=== PATIENT | male | born 1980 | race Caucasian/White ===

== ENCOUNTER 2017-03-05 12:57 | Inpatient (IN) ==
[2017-03-05 13:18] LABS: Basophils # 0.1 K/mcL (0.0-0.2); Basophils % 1.6 %; Eosinophils # 0.2 K/mcL (0.0-0.6); Eosinophils % 2.7 %; Hematocrit 52.2 % (37.5-50.1); Hemoglobin 17.3 g/dL (12.9-16.9); Immature Granulocytes % 0.4 % (0-4); Immature Platelets 4.3 % (1.1-6.1); Lymphocytes # 2.5 K/mcL (0.6-4.6); Lymphocytes % 30.8 %; Mean Corpuscular HGB Conc 33.1 g/dL (31.6-35.5); Mean Corpuscular Hemoglobin 27.4 pg (28.0-33.3); Mean Corpuscular Volume 82.6 fL (83.0-100.0); Mean Platelet Volume 10.5 fL (9.4-12.4); Monocytes # 0.8 K/mcL (0.0-1.3); Monocytes % 9.5 %; Neutrophils # 4.5 K/mcL (1.6-8.9); Platelet Count 274 K/mcL (140-400); Red Blood Count 6.32 M/mcL (4.19-5.50); Red Cell Distribution Width 13.2 % (11.5-14.5)
[2017-03-05 13:28] LABS: Bilirubin,Urine Negative (Negative); Blood,Urine Negative (Negative); Clarity,Urine Clear (Clear); Color,Urine Yellow (Yellow); Glucose,Urine (UA) >=1000 mg/dL (Normal); Ketones,Urine Negative (Negative); Leukocyte Esterase,Urine Negative (Negative); Nitrite,Urine Negative (Negative); PH,Urine 5.5 pH Units (5.0-8.0); Protein,Urine Trace mg/dL (Neg-Trace); Specific Gravity,Urine > 1.030 (1.010-1.025); Urobilinogen,Urine Normal (Normal)
[2017-03-05 13:30] LABS: Bacteria,Urine None Seen per hpf (None-Few); Hyaline Casts,Urine None Seen per lpf (None-Few); RBC,Urine 0-3 per hpf (0-3); Squamous Epithelial Cell,Urine Few per lpf (None-Few); WBC,Urine 0-3 per hpf (0-3)
[2017-03-05 13:34] LABS: Albumin 3.8 g/dL (3.5-5.0); Albumin/Globulin Ratio 0.9 (1.1-2.2); Bilirubin,Direct 0.2 mg/dL (0.0-0.5); Bilirubin,Indirect 0.1 mg/dL (0.0-1.2); Bilirubin,Total 0.3 mg/dL (0.2-1.2); Globulin 4.4 g/dL (2.4-3.5); Total Protein 8.2 g/dL (6.0-8.3)
[2017-03-05 13:34] LABS: Amphetamine Screen,Urine Negative ng/mL (Cutoff=1000); Barbiturate Screen,Urine Negative ng/mL (Cutoff=200); Benzodiazepines Screen,Urine Negative ng/mL (Cutoff=200); Cannabinoid Screen,Urine Negative ng/mL (Cutoff = 50); Cocaine Screen,Urine Negative ng/mL (Cutoff= 300); Opiate Screen,Urine Negative ng/mL (Cutoff=300); Phencyclidine Screen,Urine Negative ng/mL (Cutoff=25)
[2017-03-05 13:48] LABS: BUN/Creatinine Ratio 5 (6-26); Calcium 9.6 mg/dL (8.6-10.8); Carbon Dioxide 20 mEq/L (19-29); Chloride 100 mEq/L (98-109); Osmolality,Calculated 302 (280-300); Potassium 3.6 mEq/L (3.5-4.5); Sodium 135 mEq/L (136-145); eGFR For African Americans > 60 (> 60); eGFR For Non-African Americans > 60 (> 60)
[2017-03-05 13:49] LABS: Blood Urea Nitrogen 5 mg/dL (8-26)
[2017-03-05 13:51] LABS: Acetaminophen < 1.0 mcg/mL (10-30); Ethanol < 10 mg/dL (0-10); Glucose 543 mg/dL (70-99); Salicylate < 5.0 mg/dL (15-30)
[2017-03-05] MEDS ORDERED: Insulin Regular, Human 100 UNIT/ML SQ ONE ×2 (13:55→15:46)
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
[2017-03-05] MEDS ORDERED: Ondansetron ODT 4 MG TAB.RAPDIS SL ONE (14:35)
[2017-03-05] MEDS ORDERED: Acetaminophen 325 MG TABLET PO PRN (16:32)
[2017-03-05] MEDS ORDERED: traZODone 50 MG TABLET PO PRN (16:32)
[2017-03-05] MEDS ORDERED: MOM Conc 10 ML UD.LIQ PO PRN (16:32)
[2017-03-05] MEDS ORDERED: hydrOXYzine pamoate 25 MG CAPSULE PO PRN (16:32)
[2017-03-05] MEDS ORDERED: *HR* LORazepam 1 MG TABLET PO PRN (16:32)
[2017-03-05] MEDS ORDERED: *HR* LORazepam 2 MG/ML VIAL IM PRN (16:32)
[2017-03-05] MEDS ORDERED: Mag Hydrox/Al Hydrox/Simeth 30 ML UDC PO PRN (16:32)
[2017-03-05] MEDS ORDERED: Haloperidol Lactate 5 MG/ML VIAL IM PRN (16:32)
[2017-03-05] MEDS ORDERED: Ibuprofen 800 MG TABLET PO PRN (17:55)
[2017-03-05] MEDS ORDERED: Dextrose Gel 15 GM PO PRN ×2 (17:59)
[2017-03-05] MEDS ORDERED: Insulin LISPRO 300 UNITS/3 ML VIAL SQ ONE (18:25)
[2017-03-05] MEDS: Insulin LISPRO 300 UNITS/3 ML VIAL SQ SCH ×2 (18:31→21:21)
[2017-03-05] MEDS: Doxycycline 100 MG CAPSULE PO SCH (21:23)
[2017-03-05] MEDS: Melatonin 3 MG TABLET PO SCH (21:23)
[2017-03-06] MEDS: Insulin LISPRO 300 UNITS/3 ML VIAL SQ SCH ×4 (08:33→21:33)
[2017-03-06] MEDS: Doxycycline 100 MG CAPSULE PO SCH ×2 (08:43→21:33)
--- NOTE | 2017-03-06 09:56 | Psychiatry History & Physical ---
Date of Encounter: 03/06/17 Time of Encounter: 09:50 History of Present Illness Patient Stated Chief Complaint: "I am depressed and suicidal" Medicare Admission Attestation: For traditional Medicare patients the provided hospital inpatient services are reasonable and necessary and in the case of services not specified as inpatient -only under 42 CFR 419.22 (n), that they are appropriately provided as inpatient services in accordance 42 CFR 412.3. For Critical Access Hospital the patient may reasonably be expected to be discharged or transferred to a hospital within 96 hours after admission to the Critical Access Hospital. Admitted From: Emergency Dept Plans for Post Hospital Care: Home History of Present Illness: Mr. Villeda is a 36 year old male who was referred for hospitalization from emergency department where he presented with depression and suicidal ideation with plan to slit his wrist and ended life. Patient reported that he has been struggling from depression ever since he was a teenager and been in and out of various hospitals in the past. He reported that he is not receiving any outpatient treatment and has been off his antidepressants for the last few months because his primary care physician refused to continue providing psychiatric care. Patient reported that since last 2 months he has been noticing a relapse of depressive symptoms with low mood and anhedonia hopeless helpless feelings crying and weeping spells becoming more withdrawn and isolated poor appetite and recurrent suicidal thoughts with ideation on slitting his wrists. Patient reported that his symptoms are getting worse to the point where he is unable to keep himself safe and fear that he might act on these urges and impulses to end his life. Patient's ongoing stressors included frequent arguments and issues with girlfriend whom he is been with for last 5-1/ 2 years off and on.They are expecting their first child and she is 3 months . Since patient was actively suicidal and able to contract for safety and was posing a threat to himself it was decided to hospitalize him at [address] [place] [address] facility for safety concerns. Past Med Surg Social Fam HX - Past Medical History Medical history: arthritis, asthma, COPD, diabetes, GERD, hyperlipidemia, hypertension - Past Psychiatric History Psychiatric history: Reports: depression, prior suicide attempt, previous psychiatric hospitalization Past psychiatric history details: Patient reported that he is been hospitalized on numerous occasions on various psychiatric hospitals in the community. His last hospitalization was approximately 6 months ago at [facility]. Patient reported that he has been off all his medications for the last 2 months. He was unable to recall the names of all the medications he is been tried on. Family psychiatric history: Unknown Family History of Suicide: Unknown - Past Surgical History Surgical History: non-contributory - Social History Smoking Status: Former smoker Smokeless Tobacco Status: No Alcohol use: none Drug use: none Occupational status: disabled Current living situation: Home, With Family Activity Level: Independent ambulation Recent Out of Country Travel Within the Last 8 Weeks: No Exposure or Possible Exposure to Illness During Travel: No Additional social history: Patient was born in [place]. He is the only child between his mother and father. His father is . He graduated high school but he was in special ed classes for slow learning. He reported that his reading and math capabilities are of third-grader. He is single and never been . He has a daughter from a previous relationship but he reported that daughter's mother killed her and disappeared. He is expecting a child with this girlfriend whom he is been with for the last 5-1/2 years off and on. He is currently residing with his grandmother. He is disabled. He denies any legal issues. Medications & Allergies Doxycycline Hyclate [Doxycycline Hyclate] 100 mg PO BID 03/05/17 [History] Ibuprofen [Ibuprofen] 800 mg PO Q6H PRN 03/05/17 [History] Melatonin [Melatin] 6 mg PO HS 03/05/17 [History] 3 Allergy/AdvReac Type Severity Reaction Status Date / Time potassium Allergy Anaphylaxis Verified 03/05/17 13:21 Penicillins AdvReac Hives Verified 03/05/17 13:21 fish Allergy Severe Anaphylaxis Uncoded 03/05/17 13:21 sodium bicarb Allergy Severe Anaphylaxis Uncoded 03/05/17 13:21 sodium chloride Allergy Severe Anaphylaxis Uncoded 03/05/17 13:21 sodium sulfide Allergy Severe Anaphylaxis Uncoded 03/05/17 13:21 pcn Allergy Mild Hives Uncoded 03/05/17 13:21 peanuts Allergy Unknown Anaphylaxis Uncoded 03/05/17 13:21 Ipratropium [place] Allergy Anaphylaxis Uncoded 03/05/17 13:21 Review of Systems Psychiatric: Reports: depression, abnormal sleep pattern, suicidal ideation, anhedonia, difficulty concentrating, hopelessness, mood swings Mental Status Exam Patient orientation: Yes Person, Yes Time, Yes Place Level of alertness: Alert Patient appearance: Unkempt, Disheveled Behavior: anxious Psychomotor activity: Slowed Eye contact: Maintains Eye Contact Mood description: Depressed, Anxious Affect description: constricted, dysphoric Speech pattern: Normal rate, Normal rhythm, Normal tone Speech volume: Soft/Quiet Thought process: [place], Slowed Thinking Thought content: Yes Suicidal ideation Perceptual disturbances: No Auditory hallucinations, No Visual hallucinations Attention span: Capable of Focused Attention Memory description: Grossly Intact Patient reliability: Reliable Historian Intelligence estimate: Below Average Judgment: Limited Insight: Minimal Exam - HEENT Head exam IM: Present: atraumatic Eye exam IM: Present: normal appearance ENT exam IM: Present: normal exam - Neurological Neurological exam IM: Present: CN II-XII intact, normal gait, oriented X3, reflexes normal, no focal deficits, strengths equal and symetr throughout. Absent: motor sensory deficit - Respiratory Respiratory exam IM: Absent: decreased breath sounds, respiratory distress, rhonchi, stridor - GI/Abdominal GI/Abdominal exam IM: Present: soft. Absent: mass, tenderness - Extremities Extremities exam IM: Present: full ROM, normal inspection - Skin Skin exam IM: Present: normal color Results - Vital Signs Vital signs: Temp Pulse Resp BP Pulse Ox 98.4 F 88 18 131/98 96 03/06/17 08:38 03/06/17 08:38 03/06/17 08:38 03/06/17 08:38 03/05/17 13:26 - Labs Labs: Laboratory Last Values WBC 8.1 K/mcL (4.3-11.1) 03/05/17 13:10 RBC 6.32 M/mcL (4.19-5.50) H 03/05/17 13:10 Hgb 17.3 g/dL (12.9-16.9) H 03/05/17 13:10 Hct 52.2 % (37.5-50.1) H 03/05/17 13:10 MCV 82.6 fL (83.0-100.0) L 03/05/17 13:10 MCH 27.4 pg (28.0-33.3) L 03/05/17 13:10 MCHC 33.1 g/dL (31.6-35.5) 03/05/17 13:10 RDW 13.2 % (11.5-14.5) 03/05/17 13:10 Plt Count 274 K/mcL (140-400) 03/05/17 13:10 MPV 10.5 fL (9.4-12.4) 03/05/17 13:10 Immature Gran % 0.4 % (0-4) 03/05/17 13:10 Seg Neutrophils % 55.0 % 03/05/17 13:10 Lymphocytes % 30.8 % 03/05/17 13:10 Monocytes % 9.5 % 03/05/17 13:10 Eosinophils % 2.7 % 03/05/17 13:10 Basophils % 1.6 % 03/05/17 13:10 Neutrophils # 4.5 K/mcL (1.6-8.9) 03/05/17 13:10 Lymphocytes # 2.5 K/mcL (0.6-4.6) 03/05/17 13:10 Monocytes # 0.8 K/mcL (0.0-1.3) 03/05/17 13:10 Eosinophils # 0.2 K/mcL (0.0-0.6) 03/05/17 13:10 Basophils # 0.1 K/mcL (0.0-0.2) 03/05/17 13:10 Immature Plt Fraction 4.3 % (1.1-6.1) 03/05/17 13:10 Sodium 135 mEq/L (136-145) L 03/05/17 13:10 Potassium 3.6 mEq/L (3.5-4.5) 03/05/17 13:10 Chloride 100 mEq/L (98-109) 03/05/17 13:10 Carbon Dioxide 20 mEq/L (19-29) 03/05/17 13:10 BUN 5 mg/dL (8-26) L 03/05/17 13:10 Creatinine 1.02 mg/dL (0.72-1.25) 03/05/17 13:10 Est GFR ( Amer) > 60 (> 60) 03/05/17 13:10 Est GFR (Non-Af Amer) > 60 (> 60) 03/05/17 13:10 BUN/Creatinine Ratio 5 (6-26) L 03/05/17 13:10 Glucose 543 mg/dL (70-99) H* 03/05/17 13:10 POC Glucose 304 (58-89) H 03/06/17 08:29 Calculated Osmolality 302 (280-300) H 03/05/17 13:10 Calcium 9.6 mg/dL (8.6-10.8) 03/05/17 13:10 Total Bilirubin 0.3 mg/dL (0.2-1.2) 03/05/17 13:10 Direct Bilirubin 0.2 mg/dL (0.0-0.5) 03/05/17 13:10 Indirect Bilirubin 0.1 mg/dL (0.0-1.2) 03/05/17 13:10 AST 29 Units/L (5-34) 03/05/17 13:10 ALT 40 Units/L (0-55) 03/05/17 13:10 Alkaline Phosphatase 97 Units/L (38-126) 03/05/17 13:10 Serum Total Protein 8.2 g/dL (6.0-8.3) 03/05/17 13:10 Albumin 3.8 g/dL (3.5-5.0) 03/05/17 13:10 Globulin 4.4 g/dL (2.4-3.5) H 03/05/17 13:10 Albumin/Globulin Ratio 0.9 (1.1-2.2) L 03/05/17 13:10 Lipase 66 Units/L (8-78) 03/05/17 13:10 Urine Color Yellow (Yellow) 03/05/17 13:15 Urine Clarity Clear (Clear) 03/05/17 13:15 Urine pH 5.5 pH Units (5.0-8.0) 03/05/17 13:15 Ur Specific [place] > 1.030 (1.010-1.025) H 03/05/17 13:15 Urine Protein Trace mg/dL (Neg-Trace) 03/05/17 13:15 Urine Glucose (UA) >=1000 mg/dL (Normal) H 03/05/17 13:15 Urine Ketones Negative mg/dL (Negative) 03/05/17 13:15 Urine Blood Negative (Negative) 03/05/17 13:15 Urine Nitrite Negative (Negative) 03/05/17 13:15 Urine Bilirubin Negative (Negative) 03/05/17 13:15 Urine Urobilinogen Normal mg/dL (Normal) 03/05/17 13:15 Ur Leukocyte Esterase Negative (Negative) 03/05/17 13:15 Urine Microscopic RBC 0-3 per hpf (0-3) 03/05/17 13:15 Urine Microscopic WBC 0-3 per hpf (0-3) 03/05/17 13:15 Ur Squamous Epith Cells Few per lpf (None-Few) 03/05/17 13:15 Urine Bacteria None Seen per hpf (None-Few) 03/05/17 13:15 Hyaline Casts None Seen per lpf (None-Few) 03/05/17 13:15 Salicylates < 5.0 mg/dL (15-30) L 03/05/17 13:10 Urine Opiates Screen Negative ng/mL (Ayuits=212) 03/05/17 13:15 Acetaminophen < 1.0 mcg/mL (10-30) L 03/05/17 13:10 Ur Barbiturates Screen Negative ng/mL (Oryyuy=089) 03/05/17 13:15 Ur Phencyclidine Scrn Negative ng/mL (Cutoff=25) 03/05/17 13:15 Ur Amphetamines Screen Negative ng/mL (Rrxpsl=1910) 03/05/17 13:15 U Benzodiazepines Scrn Negative ng/mL (Fevoxi=990) 03/05/17 13:15 Urine Cocaine Screen Negative ng/mL (Cutoff= 300) 03/05/17 13:15 U Marijuana (THC) Screen Negative ng/mL (Cutoff = 50) 03/05/17 13:15 Ethyl Alcohol < 10 mg/dL (0-10) 03/05/17 13:10 Assessment and Plan (1) MDD (major depressive disorder), recurrent severe, without psychosis Current visit: Yes Status: Acute Plan: Admit inpatient for safety and stabilization, Close observation, Suicide Precautions per unit protocol, Encourage participation in unit milieu, Group Therapy, Monitor sleep, Monitor appetite Additional Plan: We will start the patient on Cymbalta 60 mg daily for his depression and chronic pain Risks, benefits, side effects, alternatives discussed w/pt: Yes Patient agreeable to treatment: Yes Plans for Post Hospital Care: Home Estimated Length of Stay (Days): 4 (2) Intellectual disability Current visit: Yes Status: Acute Plan: Admit inpatient for safety and stabilization, Close observation, Suicide Precautions per unit protocol, Encourage participation in unit milieu, Group Therapy, Monitor sleep, Monitor appetite Risks, benefits, side effects, alternatives discussed w/pt: Yes Patient agreeable to treatment: Yes Plans for Post Hospital Care: Home Estimated Length of Stay (Days): 4
--- NOTE | 2017-03-06 12:14 | Internal Medicine Consult Note ---
<Jeet Oh - Last Filed: 03/06/17 14:47> Date of Encounter: 03/06/17 Time of Encounter: 11:00 - Assessment and Plan (1) Hyperglycemia Current Visit: No Status: Acute Assessment and plan: Patient has hx of chronic diabetes and acute hyperglycemia based on current non- compliance with diet and medications. Patient states he is supposed to take metformin daily and use daily insulin for BG control but he does not. He states that he drank a case of Mountain Dew due to being upset. BG on admission was 543. Will continue patient's insulin and add medium-dose correction sliding scale insulin with hypoglycemic protocol. BG checks ACHS. A1c ordered in routine labs. Diabetes Education consult ordered to educate patient regarding diet, medication compliance, and skin/wound care. ADA diet ordered. (2) Abscess Current Visit: No Status: Acute Assessment and plan: Patient presents with abscess of right upper arm that he states was noticed approimately 1 week ago and was opened and drained at Urgent Care. Patient states a green core came out of the wound. Patient was placed on PO doxycycline. Area of arm is open and draining serosanguineous fluid. Wound culture ordered. Wound care consult and daily wound care ordered. Blood culture ordered. Will adjust PO abx based on culture results. (3) GERD (gastroesophageal reflux disease) Current Visit: No Status: Chronic Assessment and plan: Hx of chronic GERD. PO Prilosec 20 mg BID ordered. Qualifiers: Esophagitis presence: esophagitis presence not specified Qualified Code(s) : K21.9 - Gastro-esophageal reflux disease without esophagitis (4) HTN (hypertension) Current Visit: No Status: Chronic Assessment and plan: Reported hx of chronic HTN. Patient does not currently take anti-hypertensive medication. Monitor patient and VS and will add lisinopril if patient becomes hypertensive. Qualifiers: Hypertension type: essential hypertension Qualified Code(s): I10 - Essential (primary) hypertension (5) HLD (hyperlipidemia) Current Visit: No Status: Chronic Assessment and plan: Hx of chronic HLD. Patient does not currently take any statin. Lipid panel ordered in routine labs to assess cholesterol status. Will add Lipitor if warranted. Qualifiers: Hyperlipidemia type: pure hypercholesterolemia Qualified Code(s): E78.00 - Pure hypercholesterolemia, unspecified; E78.0 - Pure hypercholesterolemia (6) Sleep apnea Current Visit: Yes Status: Chronic Assessment and plan: Hx of chronic sleep apnea. Patient states that he uses CPAP nightly. CPAP ordered. Qualifiers: Sleep apnea type: unspecified type Qualified Code(s): G47.30 - Sleep apnea , unspecified Internal Medicine - CN: HPI - Data of Consult Patient: new to practice Consult date: 03/06/17 Requesting Physician: Alea Palumbo MD - Consult Narrative Reason for consult: Medical managment of DM and Wound to right arm History of present illness: Mr. Villeda is a 36 year old male with medical history of arthritis, asthma, COPD, diabetes controlled with oral anti-hyperglycemic medications and insulin, GERD, HLD, and HTN presents from for medical management of diabetes and wound care for his right arm. Patient states that he drank a case of Mountain Dew because he was upset which caused his BG to elevate to 543 on admission. Patient states that he lost 70 pounds (284 lbs to 214 lbs) over the past year with dietary changes and exercise. Patient states that he noticed an area on his arm approximately a week ago which appeared to be an abscess which his PCP drained. Area is still erythematous and edematous. Mr. Villeda denies recent illness, fever, chills, nausea, vomiting, headache, changes in vision, abdominal pain, unusual bleeding, numbness and tingling, neurological deficits, weakness, unusual bleeding, dizziness, pre-syncope, or syncope. Past Med Surg Social Fam HX - Past Medical History Source: patient, old records reviewed Medical history: arthritis, asthma, COPD, diabetes, GERD, hyperlipidemia, hypertension Psychiatric history: depression, prior suicide attempt, previous psychiatric hospitalization - Past Surgical History Surgical History: non-contributory - Social History Smoking Status: Former smoker Packs per day: 1 PPD - Reports quitting 3 months ago Smokeless Tobacco Status: No Alcohol use: none Drug use: none Current living situation: Home Activity Level: Independent ambulation Recent Out of Country Travel Within the Last 8 Weeks: No Exposure or Possible Exposure to Illness During Travel: No - Family History Father Race: Family Member Ethnicity: Non- Living Status: Age at : 62 Cause of : ME Hx Family Cardiac Disorders: Yes (Stroke, [place], HLD, HTN) Mother Race: Family Member Ethnicity: Non- Living Status: Still Living Hx Family Cardiac Disorders: Yes (TIA, HLD, HTN) Hx Family Endocrine Disorder: Yes (DM) Brother Race: Family Member Ethnicity: Non- Living Status: Still Living Hx Family Cardiac Disorders: Yes (HLD, HTN) Hx Family Musculoskeletal Disorders: Yes (Muscular dystrophy) Sister Race: Family Member Ethnicity: Non- Living Status: Still Living Hx Family Cardiac Disorders: Yes (HLD, HTN) Hx Family Endocrine Disorder: Yes (DM) Hx Family Psychosocial Disorders: Yes (Psychiatric issues) - Constitutional Constitutional: as per HPI, weight loss (70 pounds over the past year) - EENT Eyes: as per HPI - Breasts Breasts: as per HPI - Cardiovascular Cardiovascular ROS IM: as per HPI - Respiratory Respiratory: as per HPI - Gastrointestinal Gastrointestinal: as per HPI - Genitourinary Genitourinary ROS male: as per HPI - Musculoskeletal Musculoskeletal ROS IM: as per HPI - Integumentary Integumentary IM: as per HPI - Neurological Neurological ROS: as per HPI - Psychiatric Psychiatric: anxiety, depression, suicidal ideation - Endocrine Endocrine IM: as per HPI - Hematologic/Lymphatic Hematologic/Lymphatic: as per HPI - Allergic/Immunologic Allergic/Immunologic: as per HPI Internal Medicine - CN: Meds Doxycycline Hyclate [Doxycycline Hyclate] 100 mg PO BID 03/05/17 [History] Ibuprofen [Ibuprofen] 800 mg PO Q6H PRN 03/05/17 [History] Melatonin [Melatin] 6 mg PO HS 03/05/17 [History] 3 Allergy/AdvReac Type Severity Reaction Status Date / Time potassium Allergy Anaphylaxis Verified 03/05/17 13:21 Penicillins AdvReac Hives Verified 03/05/17 13:21 fish Allergy Severe Anaphylaxis Uncoded 03/05/17 13:21 sodium bicarb Allergy Severe Anaphylaxis Uncoded 03/05/17 13:21 sodium chloride Allergy Severe Anaphylaxis Uncoded 03/05/17 13:21 sodium sulfide Allergy Severe Anaphylaxis Uncoded 03/05/17 13:21 pcn Allergy Mild Hives Uncoded 03/05/17 13:21 peanuts Allergy Unknown Anaphylaxis Uncoded 03/05/17 13:21 Ipratropium [place] Allergy Anaphylaxis Uncoded 03/05/17 13:21 Internal Medicine - CN: Exam - Constitutional Vitals: Temp Pulse Resp BP Pulse Ox 98.4 F 88 18 131/98 96 03/06/17 08:38 03/06/17 08:38 03/06/17 08:38 03/06/17 08:38 03/05/17 13:26 General appearance IM: Present: cooperative, A&O X 3, pleasant, no acute distress, obese, answers questions appropriately - Head Head exam: Present: atraumatic, normal inspection, normocephalic - Eye Eye exam: Present: PERRL, conjuntiva pink Pupils: Present: normal accommodation, PERRL - ENT ENT exam: Present: normal exam, normal external ear exam, normal oropharynx - Neck Neck exam general surgery: Present: normal inspection, supple, trachea midline - Respiratory Respiratory exam: Present: CTAB - Cardiovascular Cardiovascular exam IM: Present: RRR, +S1, +S2 - GI/Abdominal GI/Abdominal exam IM: Present: normal bowel sounds, soft, no peritoneal signs - Rectal Rectal exam: Present: deferred - Additional comments: exam deferred. - Extremities Exam Extremities exam IM: Present: warm, radial pulses palpable and symmetrical - Back Exam Back exam: Present: normal inspection - Psychiatric Psychiatric exam: Present: normal affect, normal mood - Skin Skin exam IM: Present: erythema (Right upper arm) - Expanded Skin Exam Type of lesion: Present: abscess (Right upper arm has abscess that was opened and drained by PCP. Area is erythematous and edematous with serosanguineous drainage.) Internal Medicine - CN: Reslt - Labs CBC & Chem 7: 03/06/17 12:15 03/06/17 12:15 Consult Discharge Plan - Plan Referrals: NONE,PCP [Primary Care Provider] - <Freddie Kent - Last Filed: 03/06/17 15:32> Date of Encounter: 03/06/17 Internal Medicine - CN: HPI - Data of Consult Requesting Physician: Alea Palumbo MD - Consult Narrative History of present illness: Mr. Villeda is a 36 year old male Internal Medicine - CN: Exam - Constitutional Vitals: Temp Pulse Resp BP Pulse Ox 98.4 F 88 18 131/98 96 03/06/17 08:38 03/06/17 08:38 03/06/17 08:38 03/06/17 08:38 03/05/17 13:26 Internal Medicine - CN: Reslt - Labs CBC & Chem 7: 03/06/17 12:15 03/06/17 12:15 Labs: Short CBC 03/06/17 Range/Units 12:15 WBC 9.8 (4.3-11.1) K/mcL Hgb 17.3 H (12.9-16.9) g/dL Hct 51.2 H (37.5-50.1) % Plt Count 267 (140-400) K/mcL Neutrophils # 5.4 (1.6-8.9) K/mcL BMP 03/06/17 12:15 Sodium 136 Potassium 3.9 Chloride 101 Carbon Dioxide 26 BUN 13 Creatinine 0.88 Glucose 344 H Calcium 10.0 Liver Function 03/06/17 Range/Units 12:15 Total Bilirubin 0.5 (0.2-1.2) mg/dL AST 34 (5-34) Units/L ALT 41 (0-55) Units/L Alkaline Phosphatase 92 (38-126) Units/L Albumin 3.8 (3.5-5.0) g/dL - Attending Attestation I independently obtained history and examined this patient and my medical decision-making was reviewed with the nurse practitioner, Jeet Oh. I agree with the documented findings, disposition and treatment plan as described. My findings are summarized below: Patient is in no acute distress awake alert oriented. Heart is regular S1-S2, no murmurs. Lungs are clear. Skin exam: Open wound of the right shoulder with minimal serosanguineous drainage. Plan: As above. Additionally I will start Levemir 15 units twice a day. Hemoglobin A1c is 11.5. We will follow-up cultures he may need a repeat soft tissue ultrasound to see if any residual fluid collection remains.
[2017-03-06 12:31] LABS: Hematocrit 51.2 % (37.5-50.1); Hemoglobin 17.3 g/dL (12.9-16.9); Immature Granulocytes % 0.4 % (0-4); Lymphocytes % 32.6 %; Mean Corpuscular HGB Conc 33.8 g/dL (31.6-35.5); Mean Corpuscular Hemoglobin 27.8 pg (28.0-33.3); Mean Corpuscular Volume 82.2 fL (83.0-100.0); Mean Platelet Volume 10.4 fL (9.4-12.4); Monocytes % 7.6 %; Platelet Count 267 K/mcL (140-400); Red Blood Count 6.23 M/mcL (4.19-5.50); Red Cell Distribution Width 13.2 % (11.5-14.5)
[2017-03-06 12:32] LABS: Basophils # 0.1 K/mcL (0.0-0.2); Basophils % 1.4 %; Eosinophils # 0.3 K/mcL (0.0-0.6); Lymphocytes # 3.2 K/mcL (0.6-4.6); Monocytes # 0.8 K/mcL (0.0-1.3); Neutrophils # 5.4 K/mcL (1.6-8.9)
[2017-03-06 12:38] LABS: Hemoglobin A1C 11.9 %
[2017-03-06 12:41] LABS: Alanine Aminotransferase 41 Units/L (0-55); Albumin 3.8 g/dL (3.5-5.0); Albumin/Globulin Ratio 0.8 (1.1-2.2); Alkaline Phosphatase 92 Units/L (38-126); Aspartate Amino Transferase 34 Units/L (5-34); BUN/Creatinine Ratio 15 (6-26); Bilirubin,Total 0.5 mg/dL (0.2-1.2); Blood Urea Nitrogen 13 mg/dL (8-26); Carbon Dioxide 26 mEq/L (19-29); Chloride 101 mEq/L (98-109); Globulin 4.6 g/dL (2.4-3.5); Glucose 344 mg/dL (70-99); Osmolality,Calculated 296 (280-300); Potassium 3.9 mEq/L (3.5-4.5); Sodium 136 mEq/L (136-145); Total Protein 8.4 g/dL (6.0-8.3); eGFR For African Americans > 60 (> 60); eGFR For Non-African Americans > 60 (> 60)
[2017-03-06 13:01] LABS: Chol/HDL Ratio 4.8 (0-4.9); Cholesterol 202 mg/dL (< 200); HDL Cholesterol 42 mg/dL (40-59); LDL Cholesterol,Calculated 96 mg/dL (0-99); Triglycerides 319 mg/dL (< 150)
[2017-03-06] MEDS ORDERED: Insulin DETEMIR 100 UNIT/ML X5UNITS SQ SCH (21:00)
[2017-03-06] MEDS: Melatonin 3 MG TABLET PO SCH (21:33)
[2017-03-07] MEDS ORDERED: Insulin LISPRO 300 UNITS/3 ML VIAL SQ SCH (07:34)
[2017-03-07] MEDS: Doxycycline 100 MG CAPSULE PO SCH ×2 (08:46→20:02)
[2017-03-07] MEDS: Insulin LISPRO 300 UNITS/3 ML VIAL SQ SCH ×6 (08:46→17:02)
[2017-03-07] MEDS: Insulin DETEMIR 100 UNIT/ML X5UNITS SQ SCH ×2 (09:42→20:05)
--- NOTE | 2017-03-07 11:01 | Psychiatry Progress Note ---
Date of Encounter: 03/07/17 Time of Encounter: 09:47 Subjective Interval history: Patient seen and interviewed. Patient found out that his childhood friend hung himself last night and . Patient is very sad and devastated with this news. He appears flat and dysphoric. He is denying suicidal or homicidal ideations however he is still endorsing hopeless and helpless feelings. No safety plan. He has been tolerating medications fairly well. I encouraged the patient to attend groups process grief and start working on a safety plan. Patient was also seen by the hospitalist for his uncontrolled diabetes and other medical problems. (please review the attached hospitalist recommendations ) Review of Systems Psychiatric: Reports: depression, anhedonia, difficulty concentrating, hopelessness Objective: Exam Patient orientation: Yes Person, Yes Time, Yes Place Level of alertness: Alert Patient appearance: Appropriate, Unkempt Behavior: tearful Psychomotor activity: Slowed Eye contact: Maintains Eye Contact Mood description: Depressed Affect description: blunted, dysphoric Speech pattern: Normal rate, Normal rhythm, Normal tone Speech volume: Normal Thought process: Linear, Goal Oriented Thought content: No Suicidal ideation, No Homicidal ideation, No Overt delusions Perceptual disturbances: No Auditory hallucinations, No Visual hallucinations Judgment: Fair Insight: Partial Results - Vital Signs Vital Signs: Temp Pulse Resp BP Pulse Ox 98.0 F 93 18 147/98 96 03/06/17 21:00 03/06/17 21:00 03/06/17 21:00 03/06/17 21:00 03/05/17 13:26 - Labs Labs: Laboratory Results - last 24 hr 03/06/17 03/06/17 03/06/17 11:05 12:15 12:15 WBC 9.8 RBC 6.23 H Hgb 17.3 H Hct 51.2 H MCV 82.2 L MCH 27.8 L MCHC 33.8 RDW 13.2 Plt Count 267 MPV 10.4 Immature Gran % 0.4 Seg Neutrophils % 55.0 Lymphocytes % 32.6 Monocytes % 7.6 Eosinophils % 3.0 Basophils % 1.4 Neutrophils # 5.4 Lymphocytes # 3.2 Monocytes # 0.8 Eosinophils # 0.3 Basophils # 0.1 Sodium 136 Potassium 3.9 Chloride 101 Carbon Dioxide 26 BUN 13 Creatinine 0.88 Est GFR ( Amer) > 60 Est GFR (Non-Af Amer) > 60 BUN/Creatinine Ratio 15 Glucose 344 H POC Glucose 329 H Est Mean Plasma Glucose Hemoglobin A1c Calculated Osmolality 296 Calcium 10.0 Total Bilirubin 0.5 AST 34 ALT 41 Alkaline Phosphatase 92 Serum Total Protein 8.4 H Albumin 3.8 Globulin 4.6 H Albumin/Globulin Ratio 0.8 L Triglycerides 319 H Cholesterol 202 H LDL Cholesterol, Calc 96 VLDL Cholesterol, Calc 64 H HDL Cholesterol 42 Cholesterol/HDL Ratio 4.8 03/06/17 03/06/17 03/06/17 12:15 16:15 20:45 WBC RBC Hgb Hct MCV MCH MCHC RDW Plt Count MPV Immature Gran % Seg Neutrophils % Lymphocytes % Monocytes % Eosinophils % Basophils % Neutrophils # Lymphocytes # Monocytes # Eosinophils # Basophils # Sodium Potassium Chloride Carbon Dioxide BUN Creatinine Est GFR ( Amer) Est GFR (Non-Af Amer) BUN/Creatinine Ratio Glucose POC Glucose 363 H 246 H Est Mean Plasma Glucose 295 Hemoglobin A1c 11.9 H Calculated Osmolality Calcium Total Bilirubin AST ALT Alkaline Phosphatase Serum Total Protein Albumin Globulin Albumin/Globulin Ratio Triglycerides Cholesterol LDL Cholesterol, Calc VLDL Cholesterol, Calc HDL Cholesterol Cholesterol/HDL Ratio 03/06/17 03/07/17 21:32 08:30 WBC RBC Hgb Hct MCV MCH MCHC RDW Plt Count MPV Immature Gran % Seg Neutrophils % Lymphocytes % Monocytes % Eosinophils % Basophils % Neutrophils # Lymphocytes # Monocytes # Eosinophils # Basophils # Sodium Potassium Chloride Carbon Dioxide BUN Creatinine Est GFR ( Amer) Est GFR (Non-Af Amer) BUN/Creatinine Ratio Glucose POC Glucose 289 H 255 H Est Mean Plasma Glucose Hemoglobin A1c Calculated Osmolality Calcium Total Bilirubin AST ALT Alkaline Phosphatase Serum Total Protein Albumin Globulin Albumin/Globulin Ratio Triglycerides Cholesterol LDL Cholesterol, Calc VLDL Cholesterol, Calc HDL Cholesterol Cholesterol/HDL Ratio Assessment and Plan (1) MDD (major depressive disorder), recurrent severe, without psychosis Current visit: No Status: Acute Plan: Continue hospitalization, Close observation, Suicide Precautions per unit protocol, Encourage participation in unit milieu, Group Therapy, Monitor sleep, Monitor appetite Risks, benefits, side effects, alternatives discussed w/pt: Yes Patient agreeable to treatment: Yes (2) Intellectual disability Current visit: No Status: Acute Plan: Continue hospitalization, Close observation, Suicide Precautions per unit protocol, Encourage participation in unit milieu, Group Therapy, Monitor sleep, Monitor appetite Risks, benefits, side effects, alternatives discussed w/pt: Yes Patient agreeable to treatment: Yes Consult Discharge Plan - Plan Referrals: NONE,PCP [Primary Care Provider] -
--- NOTE | 2017-03-07 13:38 | Internal Med Progress Note ---
Date of Encounter: 03/07/17 Time of Encounter: 12:45 - Assessment and plan (1) Diabetes mellitus Current Visit: Yes Status: Acute Assessment and plan: noted to have uncontrolled DM HbA1C: 11.9 increased Levemir to 25units BID added Humalog 7units TIDAC increased to high dose insulin sliding scale continue to monitor FS and BG ADA diet This appears to be a new diagnosis as patient is not currently on any antihyperglycemic agents at this time will provide with Diabetic education prior to discharge Qualifiers: Diabetes mellitus type: type 2 Diabetes mellitus complication status: with unspecified complications Diabetes mellitus longterm insulin use: unspecified longterm insulin use status Qualified Code(s): E11.8 - Type 2 diabetes mellitus with unspecified complications (2) Wound of right upper extremity Current Visit: Yes Status: Acute Assessment and plan: right proximal arm open wound improved as per nursing staff continue daily wound care Doxycycline 100mg PO BID f/u wound cultures repeat CBC in am Qualifiers: Encounter type: subsequent encounter Qualified Code(s): S41.101D - Unspecified open wound of right upper arm, subsequent encounter (3) HTN (hypertension) Current Visit: No Status: Chronic Assessment and plan: As per history BP within acceptable range without any hypertensive agents will continue to monitor Qualifiers: Hypertension type: essential hypertension Qualified Code(s): I10 - Essential (primary) hypertension (4) Sleep apnea Current Visit: Yes Status: Chronic Assessment and plan: continue CPAP at bedtime Qualifiers: Sleep apnea type: unspecified type Qualified Code(s): G47.30 - Sleep apnea , unspecified (5) Mood disorder Current Visit: No Status: Chronic Assessment and plan: continue care as per primary team - Subjective Interval history: Patient seen and examined. Reports of feeling well and denies any painful discomfort Right proximal arm wound is dry and as per nursing reports improved from previous day Noted to have persistent hyperglycemia, insulin dosing adjusted as per insulin requirements from the past 24 hours. - Constitutional Vitals: Temp Pulse Resp BP Pulse Ox 97.8 F 85 18 138/93 96 03/07/17 09:00 03/07/17 09:00 03/07/17 09:00 03/07/17 09:00 03/05/17 13:26 General appearance: Present: cooperative, A&O X 3, pleasant, no acute distress, obese, answers questions appropriately - Head Head exam: Present: atraumatic, normocephalic - Eye Eye exam: Present: conjuntiva pink, sclera anicteric - Respiratory Respiratory exam: Present: CTAB. Absent: accessory muscle use, rales, rhonchi, wheezes - Cardiovascular Cardiovascular exam: Present: RRR, +S1, +S2. Absent: diastolic murmur, gallop, rubs, systolic murmur - GI/Abdominal GI/Abdominal exam: Present: normal bowel sounds, soft, no peritoneal signs. Absent: distended, tenderness - Extremities Exam Extremities exam: Present: warm, radial pulses palpable and symmetrical. Absent : calf tenderness, cyanotic, pedal edema Additional comments: right proximal arm open wound, non draining, dry, no purulent discharge noted, erythematous surrounding area - Neurological Exam Neurological exam: Present: alert, oriented X3 Internal Medicine: Result - Labs CBC & Chem 7: 03/06/17 12:15 03/06/17 12:15 - VTE Reasons for not Prescribing Prophylaxis: Treatment not Indicated - Low risk for VTE Consult Discharge Plan - Plan Referrals: NONE,PCP [Primary Care Provider] -
[2017-03-07] MEDS: Melatonin 3 MG TABLET PO SCH (20:02)
[2017-03-07] MEDS ORDERED: Temazepam 15 MG CAPSULE PO PRN (21:00)
[2017-03-08 07:42] LABS: Basophils # 0.1 K/mcL (0.0-0.2); Basophils % 1.4 %; Eosinophils # 0.3 K/mcL (0.0-0.6); Eosinophils % 3.3 %; Hematocrit 50.6 % (37.5-50.1); Hemoglobin 17.1 g/dL (12.9-16.9); Immature Granulocytes % 0.5 % (0-4); Lymphocytes # 3.8 K/mcL (0.6-4.6); Lymphocytes % 40.1 %; Mean Corpuscular HGB Conc 33.8 g/dL (31.6-35.5); Mean Corpuscular Hemoglobin 27.6 pg (28.0-33.3); Mean Corpuscular Volume 81.7 fL (83.0-100.0); Mean Platelet Volume 10.4 fL (9.4-12.4); Monocytes # 0.9 K/mcL (0.0-1.3); Neutrophils # 4.3 K/mcL (1.6-8.9); Platelet Count 264 K/mcL (140-400); Red Blood Count 6.19 M/mcL (4.19-5.50); Red Cell Distribution Width 13.2 % (11.5-14.5); Segmented Neutrophils % 45.7 %
[2017-03-08 07:53] LABS: BUN/Creatinine Ratio 19 (6-26); Blood Urea Nitrogen 14 mg/dL (8-26); Calcium 9.7 mg/dL (8.6-10.8); Carbon Dioxide 27 mEq/L (19-29); Chloride 103 mEq/L (98-109); Glucose 226 mg/dL (70-99); Magnesium 1.9 mg/dL (1.6-2.6); Osmolality,Calculated 292 (280-300); Phosphorous 4.1 mg/dL (2.3-4.7); Sodium 137 mEq/L (136-145); eGFR For African Americans > 60 (> 60); eGFR For Non-African Americans > 60 (> 60)
[2017-03-08] MEDS: Insulin LISPRO 300 UNITS/3 ML VIAL SQ SCH ×6 (08:12→14:27)
[2017-03-08] MEDS: Doxycycline 100 MG CAPSULE PO SCH (08:43)
[2017-03-08] MEDS ORDERED: Insulin DETEMIR 100 UNIT/ML X5UNITS SQ SCH (09:00)
[2017-03-08 11:22] VITALS: BP 129/92
--- NOTE | 2017-03-08 12:31 | Discharge Summary ---
Date of Encounter: 03/08/17 Time of Encounter: 12:00 Diagnosis - Discharge Diagnosis (1) MDD (major depressive disorder), recurrent severe, without psychosis Priority: Primary Status: Acute (2) Diabetes mellitus Priority: Secondary Status: Acute Qualifiers: Diabetes mellitus type: type 2 Diabetes mellitus complication status: with unspecified complications Diabetes mellitus consultant nurse insulin use: unspecified consultant nurse insulin use status Qualified Code(s): E11.8 - Type 2 diabetes mellitus with unspecified complications (3) Wound of right upper extremity Priority: Secondary Status: Acute Qualifiers: Encounter type: subsequent encounter Qualified Code(s): S41.101D - Unspecified open wound of right upper arm, subsequent encounter (4) Intellectual disability Priority: Secondary Status: Acute Medications - Discharge Medications Prescriptions: DULoxetine [Cymbalta] 60 mg PO DAILY #30 capsule. Doxycycline Hyclate 100 mg PO BID 03/05/17 [History] Ibuprofen 800 mg PO Q6H PRN 03/05/17 [History] Melatonin [Melatin] 6 mg PO HS 03/05/17 [History] DULoxetine [Cymbalta] 60 mg PO DAILY #30 capsule. 03/08/17 [Rx] Omeprazole [PriLOSEC] 20 mg PO BIDAC capsule. 03/08/17 [Rx] 3 Allergy/AdvReac Type Severity Reaction Status Date / Time potassium Allergy Anaphylaxis Verified 03/05/17 13:21 Penicillins AdvReac Hives Verified 03/05/17 13:21 sodium bicarb Allergy Severe Anaphylaxis Uncoded 03/05/17 13:21 sodium chloride Allergy Severe Anaphylaxis Uncoded 03/05/17 13:21 sodium sulfide Allergy Severe Anaphylaxis Uncoded 03/05/17 13:21 pcn Allergy Mild Hives Uncoded 03/05/17 13:21 peanuts Allergy Unknown Anaphylaxis Uncoded 03/05/17 13:21 Ipratropium [place] Allergy Anaphylaxis Uncoded 03/05/17 13:21 Provider Date of admission: 03/08/17 09:40 Primary care physician: PCP NONE Discharging clinician: Leanna Mcknight Assessment and Plan - Patient/Caregiver Discharge Instructions Activity: resume usual activities as tolerated Diet: diabetic diet Additional Instructions: Right arm ultrasound scheduled on 03/09/17 at 4:30pm at [facility]. Report to outpatient registration for your ultrasound. No preparation is required. - Follow up Plan Follow up with: [facility] [Outside] - 03/23/17 9:40 am (The above appointment is with Dr. Dove for outpatient psychiatric assessment and medication management services. Also, your counselor, Anne Marie, will contact your directly to arrange a follow-up appointment.) Yuliana Robison MD [Partnered Physician] - 03/10/17 12:00 pm Functional capacity at discharge: independent ambulation Overall status at discharge: Stable Disposition: Home, Self-Care Hospital Course Hospital course: Mr. Villeda is a 36 year old male with a history of depression, intellectual disabilities who presents to the hospital with increasing depression and suicidal ideation. Patient reports that he had been depressed over the past few months. He was not taking any antidepressants. Patient was admitted to [facility] for psychiatric stabilization. He was incorporated into the therapeutic milieu and offer group and individual as well as recreational therapy. He was also offered psychoeducational materials and supportive therapy. An internal medicine consult was placed for issues relating to an abscess in his arm. Patient was continued on doxycycline and cultures were taken. Initial results showed staph aureus. Patient was also found to have a high hemoglobin A1c and recommendations were for patient to follow-up with his outpatient provider for medications to help with his blood sugar. Patient was started on Cymbalta 60 mg by mouth daily for depressive symptoms. Over the course of the hospital stay the patient's mood improved. He did interact with peers and staff and attended some group and unit activities. Patient reported improved sleep and appetite. He denies suicidal or homicidal ideation, intent, or plan at the time of discharge. We reviewed his recent diagnoses and patient is willing to follow-up with primary care for his diabetes as well as the arm abscess. He will also be getting an ultrasound of his arm as an outpatient tomorrow. He is willing to follow up with mental health providers as well. He is discharged in stable condition. He will be returning home to his grandmother. - Time Spent with Patient Total time spent providing and/or coordinating discharge services: Greater than 30 minutes Quality - Multiple Antipsychotics Patient discharged on 2 or more antipsychotic medications: No Procedures - Procedures Procedures: Medication Management, Crisis Stabilization, Supportive Therapy, Group Therapy, Psychoeducational Therapy Mental Status Exam - Mental Status Exam Patient orientation: Yes Person, Yes Time, Yes Place Level of alertness: Alert Patient appearance: Appropriate Behavior: calm, cooperative Psychomotor activity: Normal Eye contact: Maintains Eye Contact Mood description: Euthymic/stable Affect description: congruent with mood, full range Speech pattern: Normal rate, Normal rhythm, Normal tone Speech Volume: Normal Thought process: Intact, [place] Thought Content: No Suicidal ideation, No Homicidal ideation, No Overt delusions Perceptual Disturbances: No Auditory hallucinations, No Visual hallucinations Judgment: Limited Insight: Partial
--- NOTE | 2017-03-08 12:39 | Internal Med Progress Note ---
Date of Encounter: 03/08/17 Time of Encounter: 12:33 - Assessment and plan (1) Diabetes mellitus Current Visit: Yes Status: Acute Assessment and plan: noted to have uncontrolled DM HbA1C: 11.9 increased Levemir to 35units BID Humalog 714units TIDAC high dose insulin sliding scale continue to monitor FS and BG ADA diet This appears to be a new diagnosis as patient is not currently on any antihyperglycemic agents at this time Pt will need a glucometer upon discharge to keep a log of fingerstick glucose upon discharge He can be discharged on Metformin 500mg PO BID He needs to see his primary care physician within one to two days after discharge for close monitoring and control of his diabetes Diabetic diet Qualifiers: Diabetes mellitus type: type 2 Diabetes mellitus complication status: with unspecified complications Diabetes mellitus keno terminal operator insulin use: unspecified mcc insulin use status Qualified Code(s): E11.8 - Type 2 diabetes mellitus with unspecified complications (2) Wound of right upper extremity Current Visit: Yes Status: Acute Assessment and plan: right proximal arm open wound improved from previous day clinically asymptomatic, afebrile, no leukocytosis reported continue daily wound care Doxycycline 100mg PO BID wound culture preliminary positive for staph aureus, follow up official blood culture report. Qualifiers: Encounter type: subsequent encounter Qualified Code(s): S41.101D - Unspecified open wound of right upper arm, subsequent encounter (3) HTN (hypertension) Current Visit: No Status: Chronic Assessment and plan: As per history BP within acceptable range without any hypertensive agents will continue to monitor Qualifiers: Hypertension type: essential hypertension Qualified Code(s): I10 - Essential (primary) hypertension (4) Sleep apnea Current Visit: Yes Status: Chronic Assessment and plan: continue CPAP at bedtime Qualifiers: Sleep apnea type: unspecified type Qualified Code(s): G47.30 - Sleep apnea , unspecified (5) Mood disorder Current Visit: No Status: Chronic Assessment and plan: continue care as per primary team - Subjective Interval history: Patient seen and examined. Reports of feeling well and denies any painful discomfort Right proximal arm wound is dry and improved from previous day Noted to have persistent hyperglycemia, insulin dosing adjusted as per insulin requirements from the past 24 hours. Pt will need oral antihyperglycemic agent along with insulin upon discharge. However given patient's underlying psych disorder, unclear if pt will be a safe discharge with insulin therapy. These concerns were discussed with patient's psychiatry Dr. Michelle.Dr. Michelle is to follow up with patient's family and most likely have patient's primary care physician initiate insulin regimen. Close outpatient follow up with is recommended - Constitutional Vitals: Temp Pulse Resp BP Pulse Ox 97.8 F 90 18 129/92 96 03/08/17 09:00 03/08/17 09:00 03/08/17 09:00 03/08/17 09:00 03/05/17 13:26 General appearance: Present: cooperative, A&O X 3, pleasant, no acute distress, obese, answers questions appropriately - Head Head exam: Present: atraumatic, normocephalic - Eye Eye exam: Present: conjuntiva pink, sclera anicteric - Respiratory Respiratory exam: Present: CTAB. Absent: accessory muscle use, rales, rhonchi, wheezes - Cardiovascular Cardiovascular exam: Present: RRR, +S1, +S2. Absent: diastolic murmur, gallop, rubs, systolic murmur - GI/Abdominal GI/Abdominal exam: Present: normal bowel sounds, soft, no peritoneal signs. Absent: distended, tenderness - Extremities Exam Extremities exam: Present: warm, radial pulses palpable and symmetrical. Absent : calf tenderness Additional comments: right proximal arm open wound, dry, improvement in erythema noted - Neurological Exam Neurological exam: Present: alert, oriented X3 Internal Medicine: Result - Labs CBC & Chem 7: 03/08/17 07:30 03/08/17 07:30 - VTE Reasons for not Prescribing Prophylaxis: Treatment not Indicated - Low risk for VTE Consult Discharge Plan - Plan Referrals: [facility] [Outside] - 03/23/17 9:40 am (The above appointment is with Dr. Dove for outpatient psychiatric assessment and medication management services. Also, your counselor, Anen Marie, will contact your directly to arrange a follow-up appointment.) Yuliana Robison MD [Partnered Physician] - 03/10/17 12:00 pm
== END 2017-03-08 16:40 | disposition home or self-care (01) | DRG 885 ==
LOC: EMEROO 12:57 → INTOOBSV 16:28 → 1ANU 16:28 → SUATTDRO 16:28 → 1ANU 16:46
PROVIDERS: ADMIT Psychiatry & Neurology Psychiatry; ATTEND Psychiatry & Neurology Psychiatry

== ENCOUNTER 2017-09-14 16:23 | Inpatient (IN) ==
[2017-09-14 17:55] LABS: Basophils # 0.2 K/mcL (0.0-0.2); Basophils % 1.3 %; Eosinophils # 0.4 K/mcL (0.0-0.6); Eosinophils % 3.6 %; Hematocrit 45.4 % (37.5-50.1); Hemoglobin 15.5 g/dL (12.9-16.9); Immature Granulocytes % 0.4 % (0-4); Lymphocytes # 3.1 K/mcL (0.6-4.6); Lymphocytes % 27.4 %; Mean Corpuscular HGB Conc 34.1 g/dL (31.6-35.5); Mean Corpuscular Hemoglobin 28.4 pg (28.0-33.3); Mean Corpuscular Volume 83.2 fL (83.0-100.0); Mean Platelet Volume 10.5 fL (9.4-12.4); Monocytes # 1.4 K/mcL (0.0-1.3); Monocytes % 12.2 %; Neutrophils # 6.1 K/mcL (1.6-8.9); Platelet Count 226 K/mcL (140-400); Red Blood Count 5.46 M/mcL (4.19-5.50); Red Cell Distribution Width 13.2 % (11.5-14.5); Segmented Neutrophils % 55.1 %
[2017-09-14 18:08] LABS: INR 1.1; Prothrombin Time 12.2 Seconds (9.4-12.1)
[2017-09-14 18:11] LABS: Activated Partial Thrombo Time 28.1 Seconds (26.0-36.0)
[2017-09-14 18:17] LABS: BUN/Creatinine Ratio 14 (6-26); Blood Urea Nitrogen 10 mg/dL (6-20); Calcium 9.2 mg/dL (8.6-10.3); Carbon Dioxide 26 mEq/L (23-29); Chloride 101 mEq/L (98-107); Glucose 301 mg/dL (70-105); Osmolality,Calculated 290 (280-300); Potassium 3.5 mEq/L (3.5-5.1); Sodium 135 mEq/L (136-145); eGFR For African Americans > 60 (> 60); eGFR For Non-African Americans > 60 (> 60)
[2017-09-14 18:18] LABS: Troponin I < 0.03 ng/mL (< 0.04)
--- NOTE | 2017-09-14 20:01 | Emergency Department Note ---
Disposition Clinical Impression: Monocular diplopia of both eyes Syncope Qualifiers: Syncope type: unspecified Qualified Code(s): R55 - Syncope and collapse Disposition: Admitted As Inpatient Condition: Fair General Adult HPI - General Chief complaint: ED Syncope Stated complaint: syncope, headaches Time Seen by Provider: 09/14/17 17:03 Source: patient, family Limitations: no limitations Nursing Notes Reviewed: Yes Vital Signs Reviewed: Yes - History of Present Illness HPI Narrative: 37-year-old male presents emergency Department with concerns of acute onset dizziness, described as lightheadedness, intermittent chest pain and a syncopal event. Patient states he has had generalized malaise and diplopia from both eyes. Patient states the diplopia occurs intermittently over the past 3-4 days. There is no associated pain with the eyes. Patient states that this occurred to him once before at [facility] and had a full workup and current including an MRI which was within normal limits. Patient had not followed up with the neurologist over the past 2-1/2 years. Patient states he syncopized today after standing, denies chest pain or shortness of breath or palpitations. No recent nausea, vomiting, diarrhea, hematochezia, melena, coffee-ground emesis. No recent rashes or fevers. 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 Pain Scale: 8 - Related Data Home Medications Medication Instructions Recorded Confirmed Doxycycline Hyclate 100 mg PO BID 03/05/17 03/05/17 Ibuprofen 800 mg PO Q6H PRN 03/05/17 03/05/17 Melatonin [Melatin] 6 mg PO HS 03/05/17 03/05/17 Previous Rx's Medication Instructions Recorded DULoxetine [Cymbalta] 60 mg PO DAILY #30 capsule. 03/08/17 Omeprazole [PriLOSEC] 20 mg PO BIDAC capsule. 03/08/17 metFORMIN [Glucophage] 500 mg PO BIDWM #14 tablet 03/08/17 Acetaminophen/Butalbital/Caffe 1 each PO Q6HR #12 tablet 09/07/17 [Fioricet] Allergies Allergy/AdvReac Type Severity Reaction Status Date / Time potassium Allergy Anaphylaxis Verified 09/14/17 20:53 Penicillins AdvReac Hives Verified 09/14/17 20:53 sodium bicarb Allergy Severe Anaphylaxis Uncoded 03/05/17 13:21 sodium chloride Allergy Severe Anaphylaxis Uncoded 03/05/17 13:21 sodium sulfide Allergy Severe Anaphylaxis Uncoded 03/05/17 13:21 pcn Allergy Mild Hives Uncoded 03/05/17 13:21 peanuts Allergy Unknown Anaphylaxis Uncoded 03/05/17 13:21 Ipratropium [place] Allergy Anaphylaxis Uncoded 03/05/17 13:21 All systems ED: reviewed and negative except as stated. Review of Systems: As Per HPI Past Medical History - Past Medical History Attestation: Yes The following information was validated with the patient. Source: patient Medical history: Reports: arthritis, asthma, COPD, diabetes, GERD, hyperlipidemia, hypertension Surgical history: Reports: non-contributory Psychiatric history: Reports: anxiety, depression, prior suicide attempt, previous psychiatric hospitalization - Social History Smoking Status: Current some day smoker Smokeless Tobacco Status: No Alcohol use: Reports: none Drug use: Reports: none Physical Exam General: Alert and in no acute distress Skin: Warm, dry, intact Head: Normocephalic and atraumatic Eye: Pupils equal and reactive bilaterally to light and accommodation. Extraocular muscles intact. No evidence of hemorrhage noted on ophthalmic exam. Neck: Supple, trachea midline and no tenderness Cardiovascular: RRR, no murmur, normal perfusion Respiratory: CTAB, no wheezing, cough, or respiratory distress Musculoskeletal: Normal strength, no tenderness, swelling or deformity GI: Soft, nontender, nondistended. Bowel sounds present Neuro: A&O to person, place, time and situation. No focal deficits noted on exam. Finger to nose testing and [id number] testing intact bilaterally. Cranial nerve exam intact to examination. No sensory deficits on exam. Psychiatric: cooperative and appropriate mood and affect. - General Limitations: no limitations General appearance: alert, in no apparent distress Course Vital Signs Temperature 98.4 F 09/14/17 16:24 Pulse Rate 85 09/14/17 16:24 Respiratory Rate 18 09/14/17 16:24 Blood Pressure 148/93 09/14/17 16:24 O2 Sat by Pulse Oximetry 95 09/14/17 16:24 Temperature 98.4 F 09/14/17 16:24 Pulse Rate 69 09/14/17 20:52 Respiratory Rate 16 09/14/17 20:52 Blood Pressure 142/94 09/14/17 20:52 O2 Sat by Pulse Oximetry 96 09/14/17 20:52 Oxygen Delivery Oxygen Delivery Room Air Medical Decision Making - MDM Narrative Medical decision making narrative: I spoke with the neurologist, Dr. Rojas, who recommended that this is unlikely secondary to myasthenia gravis or multiple sclerosis. CT of the head was negative for acute fracture or intracranial hemorrhage. I spoke with the water meter reader to recommended continued observation, possible MRI in the a.m. and he will consult in the hospital if necessary otherwise he will see in the office. Patient states symptoms are intermittent. They continue to be present in the emergency department. I do not find focal neurologic deficits on my exam. Patient will be admitted for further care and evaluation. - Medical Records Medical records reviewed: Yes I reviewed the patient's medical records. - Lab Data Lab results reviewed: Yes I reviewed the patient's lab results. Result diagrams: 09/14/17 17:35 09/14/17 17:35 Lab Results 09/14/17 09/14/17 09/14/17 Range/Units 16:32 17:35 17:35 WBC 11.1 (4.3-11.1) K/mcL RBC 5.46 (4.19-5.50) M/mcL Hgb 15.5 (12.9-16.9) g/dL Hct 45.4 (37.5-50.1) % MCV 83.2 (83.0-100.0) fL MCH 28.4 (28.0-33.3) pg MCHC 34.1 (31.6-35.5) g/dL RDW 13.2 (11.5-14.5) % Plt Count 226 (140-400) K/mcL MPV 10.5 (9.4-12.4) fL Immature Gran % 0.4 (0-4) % Seg Neutrophils % 55.1 % Lymphocytes % 27.4 % Monocytes % 12.2 % Eosinophils % 3.6 % Basophils % 1.3 % Neutrophils # 6.1 (1.6-8.9) K/mcL Lymphocytes # 3.1 (0.6-4.6) K/mcL Monocytes # 1.4 H (0.0-1.3) K/mcL Eosinophils # 0.4 (0.0-0.6) K/mcL Basophils # 0.2 (0.0-0.2) K/mcL PT 12.2 H (9.4-12.1) Seconds INR 1.1 APTT 28.1 (26.0-36.0) Seconds Sodium (136-145) mEq/L Potassium (3.5-5.1) mEq/L Chloride (98-107) mEq/L Carbon Dioxide (23-29) mEq/L BUN (6-20) mg/dL Creatinine (0.70-1.30) mg/dL Est GFR ( Amer) (> 60) Est GFR (Non-Af Amer) (> 60) BUN/Creatinine Ratio (6-26) Glucose (70-105) mg/dL POC Glucose 314 H (70-99) mg/dL Calculated Osmolality (280-300) Calcium (8.6-10.3) mg/dL Troponin I (< 0.04) ng/mL 09/14/17 Range/Units 17:35 WBC (4.3-11.1) K/mcL RBC (4.19-5.50) M/mcL Hgb (12.9-16.9) g/dL Hct (37.5-50.1) % MCV (83.0-100.0) fL MCH (28.0-33.3) pg MCHC (31.6-35.5) g/dL RDW (11.5-14.5) % Plt Count (140-400) K/mcL MPV (9.4-12.4) fL Immature Gran % (0-4) % Seg Neutrophils % % Lymphocytes % % Monocytes % % Eosinophils % % Basophils % % Neutrophils # (1.6-8.9) K/mcL Lymphocytes # (0.6-4.6) K/mcL Monocytes # (0.0-1.3) K/mcL Eosinophils # (0.0-0.6) K/mcL Basophils # (0.0-0.2) K/mcL PT (9.4-12.1) Seconds INR APTT (26.0-36.0) Seconds Sodium 135 L (136-145) mEq/L Potassium 3.5 (3.5-5.1) mEq/L Chloride 101 (98-107) mEq/L Carbon Dioxide 26 (23-29) mEq/L BUN 10 (6-20) mg/dL Creatinine 0.73 (0.70-1.30) mg/dL Est GFR ( Amer) > 60 (> 60) Est GFR (Non-Af Amer) > 60 (> 60) BUN/Creatinine Ratio 14 (6-26) Glucose 301 H (70-105) mg/dL POC Glucose (70-99) mg/dL Calculated Osmolality 290 (280-300) Calcium 9.2 (8.6-10.3) mg/dL Troponin I < 0.03 (< 0.04) ng/mL - Radiology Data Radiology results reviewed: Yes I reviewed the patient's radiology results. - EKG Data EKG #1 EKG attestation: Yes I reviewed and interpreted this EKG. EKG results narrative: ECG - interpreted by ED physician. Rate 83, normal sinus rhythm, no STEMI, MT, QT intervals, and QRS within normal limits
--- NOTE | 2017-09-14 22:09 | Internal Med History&Physical ---
Date of Encounter: 09/14/17 Time of Encounter: 22:05 Assessment and Plan (1) COPD (chronic obstructive pulmonary disease) Current visit: Yes Status: Chronic History of COPD and asthma no wheezing on exam chest x ray was unremarkable Qualifiers: COPD type: emphysema Emphysema type: unspecified Qualified Code(s): J43.9 - Emphysema, unspecified (2) Obesity Current visit: Yes Status: Chronic Qualifiers: Obesity type: due to excess calories Obesity classification: unspecified obesity classification Serious obesity comorbidity presence: unspecified whether serious comorbidity present Qualified Code(s): E66.09 - Other obesity due to excess calories (3) Monocular diplopia of both eyes Current visit: Yes Status: Acute Acute recurrent double vision will obtain MRI in a.m. consult neurology is possible may have intermittent third nerve palsy due to uncontrolled diabetes (4) Syncope Current visit: Yes Status: Acute Description of nausea and then syncope in the very suggestive of vaso-vagal syncope vs vasodepressive syncope and 2-D echo and consult cardiology Qualifiers: Syncope type: vasovagal syncope Qualified Code(s): R55 - Syncope and collapse (5) Diabetes mellitus Current visit: No Status: Chronic Chronic and uncontrolled patient is noncompliant Qualifiers: Diabetes mellitus type: type 2 Diabetes mellitus terminal operations manager insulin use: unspecified terminal operations manager insulin use status Diabetes mellitus complication status : with unspecified complications Qualified Code(s): E11.8 - Type 2 diabetes mellitus with unspecified complications (6) Chest pain Current visit: Yes Status: Acute Recurrent chest pain for about 2-3 days we will trend troponin and nuclear stress test in a.m. Qualifiers: Chest pain type: precordial pain Qualified Code(s): R07.2 - Precordial pain Internal Medicine - H&P: HPI Chief complaint: syncope and double vision Admitted From: Emergency Dept Plans for Post Hospital Care: Home History of present illness: Mr. Villeda is a 37 year old male Patient with history of obesity, obstructive sleep apnea, diabetes, noncompliance, hypertension, GERD, high cholesterol, COPDasthma and arthritis. patient presented emergency room multiple complaint today had episode of nausea he got up and then passed out he went to the bathroom and then walking back passed out again. Also has had intermittent chest pain and some lightheadedness also complaining of generalized weakness and some episode of double vision in both eyes that is intermittent for the last 3-[address] of the head was a negative for any acute process Dr. Rojas neurology has been contacted and will see patient tomorrow for further evaluation. Past Med Surg Social Fam HX - Past Medical History Medical history: arthritis, asthma, COPD, diabetes, hyperlipidemia, hypertension Psychiatric history: anxiety, depression, prior suicide attempt, previous psychiatric hospitalization - Past Surgical History Surgical History: cholecystectomy - Social History Smoking Status: Former smoker Smokeless Tobacco Status: No Alcohol use: occasionally, recent Drug use: none - Family History Father Family Member Ethnicity: Non- Living Status: Hx Family Cardiac Disorders: Yes (Stroke, ID, HLD, HTN) Mother Family Member Ethnicity: Non- Living Status: Still Living Hx Family Cardiac Disorders: Yes (TIA, HLD, HTN) Hx Family Endocrine Disorder: Yes (DM) Brother Family Member Ethnicity: Non- Living Status: Still Living Hx Family Cardiac Disorders: Yes (HLD, HTN) Sister Family Member Ethnicity: Non- Living Status: Still Living Hx Family Cardiac Disorders: Yes (HLD, HTN) Hx Family Endocrine Disorder: Yes (DM) Internal Medicine - H&P: Meds Acetaminophen/Butalbital/Caffe [Fioricet] 1 tab PO Q6HR PRN 09/14/17 [History] BuPROPion XL (24 HR) [Wellbutrin XL] 150 mg PO QAM 09/14/17 [History] Divalproex (12 HR) [Depakote (12 HR)] 250 mg PO QPM 09/14/17 [History] Divalproex (12 HR) [Depakote (12 HR)] 500 mg PO BID 09/14/17 [History] Propranolol [Inderal] 10 mg PO BID 09/14/17 [History] Trazodone HCl 150 - 300 mg PO HS 09/14/17 [History] 3 Allergy/AdvReac Type Severity Reaction Status Date / Time potassium Allergy Anaphylaxis Verified 09/14/17 20:53 Penicillins AdvReac Hives Verified 09/14/17 20:53 sodium bicarb Allergy Severe Anaphylaxis Uncoded 03/05/17 13:21 sodium chloride Allergy Severe Anaphylaxis Uncoded 03/05/17 13:21 sodium sulfide Allergy Severe Anaphylaxis Uncoded 03/05/17 13:21 pcn Allergy Mild Hives Uncoded 03/05/17 13:21 peanuts Allergy Unknown Anaphylaxis Uncoded 03/05/17 13:21 Ipratropium [place] Allergy Anaphylaxis Uncoded 03/05/17 13:21 All Systems PM: A 10-system review of systems was performed and is negative for pertinent findings except as documented above in the HPI. - Constitutional Vitals: Temp Pulse Resp BP Pulse Ox 98.2 F 73 16 136/84 96 09/14/17 21:10 09/14/17 21:10 09/14/17 21:10 09/14/17 21:10 09/14/17 21:10 - Head Head exam: Present: atraumatic, normocephalic - Eye Eye exam: Present: PERRL, conjuntiva pink, sclera anicteric Pupils: Present: PERRL - Neck Neck exam general surgery: Present: supple, trachea midline. Absent: lymphadenopathy - Respiratory Respiratory exam: Present: CTAB. Absent: accessory muscle use, rales, rhonchi, wheezes - Cardiovascular Cardiovascular exam: Present: RRR, +S1, +S2. Absent: diastolic murmur, gallop, rubs, systolic murmur - GI/Abdominal GI/Abdominal exam: Present: normal bowel sounds, soft, no peritoneal signs. Absent: distended, tenderness - Extremities Exam Extremities exam: Present: warm, radial pulses palpable and symmetrical. Absent : calf tenderness, cyanotic, pedal edema - Neurological Exam Neurological exam: Present: CN II-XII intact, oriented X3, no focal deficits. Absent: pronater drift, facial droop, speech deficit - Skin Skin exam: Present: dry, intact Internal Med - H&P Results - Labs CBC & Chem 7: 09/14/17 17:35 09/14/17 17:35
[2017-09-14] MEDS ORDERED: Acetaminophen 325 MG TABLET PO PRN (22:17)
[2017-09-14] MEDS ORDERED: Naloxone 0.4 MG/ML INJ IVP PRN (22:17)
[2017-09-14] MEDS ORDERED: traMADol 50 MG TABLET PO PRN (22:17)
[2017-09-14] MEDS ORDERED: D5% in Water 1,000 ML IVC PRN (22:22)
[2017-09-14] MEDS ORDERED: Dextrose Gel 15 GM/37.5 ML TUBE PO PRN ×2 (22:22)
[2017-09-14] MEDS ORDERED: *HR* Dextrose 50 % in Water (Syg) 50 ML SYRINGE IVP PRN (22:22)
[2017-09-14] MEDS ORDERED: Divalproex (12 HR) 250 MG TABLET PO SCH (23:15)
[2017-09-15] MEDS: Insulin LISPRO 300 UNITS/3 ML VIAL SQ SCH ×4 (00:46→18:47)
[2017-09-15] MEDS: 0.9 % Sodium Chloride 1,000 ML IVC SCH ×2 (00:49→15:42)
[2017-09-15] MEDS ORDERED: Ketorolac 30 MG/ML VIAL IVP ONE (02:13)
[2017-09-15] MEDS ORDERED: Regadenoson 0.4 MG/5 ML SYRINGE IVP ONE (05:47)
[2017-09-15 06:33] LABS: Hematocrit 45.7 % (37.5-50.1); Hemoglobin 15.4 g/dL (12.9-16.9); Mean Corpuscular HGB Conc 33.7 g/dL (31.6-35.5); Mean Corpuscular Hemoglobin 28.1 pg (28.0-33.3); Mean Corpuscular Volume 83.4 fL (83.0-100.0); Mean Platelet Volume 10.7 fL (9.4-12.4); Platelet Count 208 K/mcL (140-400); Red Blood Count 5.48 M/mcL (4.19-5.50); Red Cell Distribution Width 13.1 % (11.5-14.5)
[2017-09-15 07:38] LABS: Alanine Aminotransferase 22 Units/L (7-52); Albumin 3.8 g/dL (3.5-5.7); Albumin/Globulin Ratio 1.2 (1.1-2.2); Alkaline Phosphatase 74 Units/L (34-104); Aspartate Amino Transferase 16 Units/L (13-39); BUN/Creatinine Ratio 16 (6-26); Bilirubin,Total 0.3 mg/dL (0.3-1.0); Blood Urea Nitrogen 10 mg/dL (6-20); Calcium 9.7 mg/dL (8.6-10.3); Carbon Dioxide 26 mEq/L (23-29); Chloride 105 mEq/L (98-107); Chol/HDL Ratio 3.8 (0-4.9); Cholesterol 123 mg/dL (< 200); Globulin 3.1 g/dL (2.4-3.5); Glucose 368 mg/dL (70-105); HDL Cholesterol 32 mg/dL (40-59); LDL Cholesterol,Calculated 49 mg/dL (0-99); Magnesium 1.9 mg/dL (1.6-2.6); Osmolality,Calculated 298 (280-300); Potassium 3.7 mEq/L (3.5-5.1); Sodium 137 mEq/L (136-145); Total Protein 6.9 g/dL (6.4-8.9); Triglycerides 208 mg/dL (< 150); eGFR For African Americans > 60 (> 60); eGFR For Non-African Americans > 60 (> 60)
[2017-09-15] MEDS ORDERED: Divalproex (12 HR) 500 MG TABLET PO SCH (09:00)
[2017-09-15] MEDS: Divalproex (12 HR) 500 MG TABLET PO SCH ×2 (10:29→22:16)
[2017-09-15] MEDS: BuPROPion XL (24 HR) 150 MG TABLET PO SCH (10:29)
--- NOTE | 2017-09-15 12:21 | Cardiology Consult Note ---
<Johnny Kate R - Last Filed: 09/15/17 13:21> Date of Encounter: 09/15/17 Time of Encounter: 12:18 Assessment and Plan (1) Syncope Current Visit: Yes Status: Acute Reports 2 syncopal events yesterday, both when attempting to stand/walk. However , also complained of lower extremity numbness and double vision. Neurology on board. Troponin negative x 3. Check orthostatic vitals. TTE and stress test pending. No arrhythmias noted on tele. Further recommendations pending test results. Qualifiers: Syncope type: unspecified Qualified Code(s): R55 - Syncope and collapse (2) Chest pain Current Visit: Yes Status: Acute Right sided chest pain yesterday that has been intermittent since syncopal events with radiation to right arm--no exacerbating or alleviating factors. Troponin negative x 3. No ischemic EKG changes. Risk factors for CAD--hx of tobacco abuse, family hx, HTN, HLD, DM, obesity. Stress test and TTE pending. Qualifiers: Chest pain type: unspecified Qualified Code(s): R07.9 - Chest pain, unspecified Discussion w patient/family: The assessment and plan as outlined above was discussed with the patient and/or family members who expressed understanding and agreement. All questions were answered. Thank you for involving us in the care of your patient. Please call with any questions. I will discuss all the above with Dr. Cornejo and make changes as necessary. History of Present Illness Consult date: 09/15/17 Requesting physician: Austin Javed Consult reason: Syncope, chest pain Chief complaint: syncope, chest pain History of present illness: Mr. Villeda is a 37 year old male with PMH of obesity, MIKE, diabetes, noncompliance, hypertension, GERD, HLD, COPD, asthma and arthritis that presented to ED after 2 episodes of syncope and chest pain. He states that yesterday he had an episode of nausea and when he tried to raise up to get out of bed he passed out. He states he had to crawl to the bathroom due to numbness in his lower extremities. He went to the bathroom, stood up and started walking back to bed and passed out again. He does report dizziness and lightheadedness during episodes. States he developed right sided chest pain after the syncopal events that was sharp and radiated to right arm, no alleviating or exacerbating factors. Also reports having double vision. CT of the head was a negative for any acute process. Neuro and cardiology consulted for further recs. TTE and stress test have both been ordered--results pending. Current chest pain 09/30. Denies personal cardiac hx, but reports MIs and CAD in both parents. Troponin negative x 3. Past Med Surg Social Fam HX - Past Medical History Medical history: arthritis, asthma, COPD, diabetes, hyperlipidemia, hypertension Psychiatric history: anxiety, depression, prior suicide attempt, previous psychiatric hospitalization - Past Surgical History Surgical History: cholecystectomy - Social History Smoking Status: Former smoker Smokeless Tobacco Status: No Alcohol use: occasionally, recent Drug use: none - Family History Father Family Member Ethnicity: Non- Living Status: Hx Family Cardiac Disorders: Yes (Stroke, [place], HLD, HTN) Mother Family Member Ethnicity: Non- Living Status: Still Living Hx Family Cardiac Disorders: Yes (TIA, HLD, HTN) Hx Family Endocrine Disorder: Yes (DM) Brother Family Member Ethnicity: Non- Living Status: Still Living Hx Family Cardiac Disorders: Yes (HLD, HTN) Sister Family Member Ethnicity: Non- Living Status: Still Living Hx Family Cardiac Disorders: Yes (HLD, HTN) Hx Family Endocrine Disorder: Yes (DM) Medications and Allergies Acetaminophen/Butalbital/Caffe [Fioricet] 1 tab PO Q6HR PRN 09/14/17 [History] BuPROPion XL (24 HR) [Wellbutrin XL] 150 mg PO QAM 09/14/17 [History] Divalproex (12 HR) [Depakote (12 HR)] 250 mg PO QPM 09/14/17 [History] Divalproex (12 HR) [Depakote (12 HR)] 500 mg PO BID 09/14/17 [History] Propranolol [Inderal] 10 mg PO BID 09/14/17 [History] Trazodone HCl 150 - 300 mg PO HS 09/14/17 [History] 3 Allergy/AdvReac Type Severity Reaction Status Date / Time potassium Allergy Anaphylaxis Verified 09/14/17 20:53 Penicillins AdvReac Hives Verified 09/14/17 20:53 sodium bicarb Allergy Severe Anaphylaxis Uncoded 03/05/17 13:21 sodium chloride Allergy Severe Anaphylaxis Uncoded 03/05/17 13:21 sodium sulfide Allergy Severe Anaphylaxis Uncoded 03/05/17 13:21 pcn Allergy Mild Hives Uncoded 03/05/17 13:21 peanuts Allergy Unknown Anaphylaxis Uncoded 03/05/17 13:21 Ipratropium [place] Allergy Anaphylaxis Uncoded 03/05/17 13:21 All Systems Review: The remainder of the systems were reviewed and are negative - Cardiovascular Cardiovascular: as per HPI, chest pain at rest, chest pain with exertion, radiating jaw, neck or arm pain, lightheadedness, syncope - Neurological Neurological: dizziness, syncope Physical Examination Vital Signs, Last 4 Hours Temp Pulse Resp BP Pulse Ox 09/15/17 11:13 98.5 F 76 14 122/70 97 09/15/17 10:30 97.8 F 72 18 108/65 Vital Signs Temp Pulse Resp BP Pulse Ox 09/15/17 11:13 98.5 F 76 14 122/70 97 09/15/17 10:30 97.8 F 72 18 108/65 09/15/17 06:32 98.5 F 66 14 108/65 95 09/15/17 03:10 97.7 F 16 121/70 97 09/14/17 23:00 98.0 F 75 16 125/80 96 09/14/17 21:10 98.2 F 73 16 136/84 96 09/14/17 20:52 69 16 142/94 96 09/14/17 19:11 68 16 129/85 96 09/14/17 16:24 98.4 F 85 18 148/93 95 Intake and Output 09/14/17 09/15/17 09/15/17 23:59 07:59 15:59 Other: Meal NPO # Bowel Movements 1 Weight 95.4 kg 95.4 kg Blood Glucose* 256 295 333 Patient Weight 09/15/17 23:59 Weight 95.4 kg General: Conversant, No Apparent Distress HEENT: Atraumatic, Normocephaly, Mucus Membranes Moist Neck: No JVD, Normal carotid pulses Cardiac: Reg Rate and Rhythm, Normal S1 and S2, No Murmur Lungs: Normal Breath Sounds, No Wheeze, Rales, Rhonchi Neuro: Alert and responsive, No focal deficits noted Abdomen: Soft, Non-Tender Skin: No rashes noted on visualized skin Musculoskeletal: No Chest Wall Tenderness Extremities: No Clubbing, No Cyanosis, No Edema, Normal Pulses Results 09/15/17 06:00 09/15/17 06:00 Lab Results 09/14/17 09/15/17 09/15/17 22:31 06:00 06:00 WBC 9.4 Hgb 15.4 Hct 45.7 Plt Count 208 Sodium 137 Potassium 3.7 Chloride 105 Carbon Dioxide 26 BUN 10 Creatinine 0.62 L Glucose 368 H Calcium 9.7 Magnesium 1.9 Total Bilirubin 0.3 AST 16 ALT 22 Alkaline Phosphatase 74 Troponin I < 0.03 B-Natriuretic Peptide 09/15/17 09/15/17 06:00 06:00 WBC Hgb Hct Plt Count Sodium Potassium Chloride Carbon Dioxide BUN Creatinine Glucose Calcium Magnesium Total Bilirubin AST ALT Alkaline Phosphatase Troponin I < 0.03 B-Natriuretic Peptide 53 Short CBC 09/15/17 09/14/17 Range/Units 06:00 17:35 WBC 9.4 11.1 (4.3-11.1) K/mcL Hgb 15.4 15.5 (12.9-16.9) g/dL Hct 45.7 45.4 (37.5-50.1) % Plt Count 208 226 (140-400) K/mcL Neutrophils # 6.1 (1.6-8.9) K/mcL BMP 09/15/17 09/14/17 Range/Units 06:00 17:35 Sodium 137 135 L (136-145) mEq/L Potassium 3.7 3.5 (3.5-5.1) mEq/L Chloride 105 101 (98-107) mEq/L Carbon Dioxide 26 26 (23-29) mEq/L BUN 10 10 (6-20) mg/dL Creatinine 0.62 L 0.73 (0.70-1.30) mg/dL Glucose 368 H 301 H (70-105) mg/dL Calcium 9.7 9.2 (8.6-10.3) mg/dL Cardiac Enzymes 09/15/17 09/14/17 09/14/17 Range/Units 06:00 22:31 17:35 Troponin I < 0.03 < 0.03 < 0.03 (< 0.04) ng/mL Liver Function 09/15/17 Range/Units 06:00 Total Bilirubin 0.3 (0.3-1.0) mg/dL AST 16 (13-39) Units/L ALT 22 (7-52) Units/L Alkaline Phosphatase 74 (34-104) Units/L Albumin 3.8 (3.5-5.7) g/dL Impressions Chest X-Ray 09/14/17 17:26 IMPRESSION: No acute process. D/ / Garret Camara MD / Garret Camara MD Interpreting Provider: Garret Camara MD Head CT 09/14/17 17:26 IMPRESSION: No acute intracranial abnormality. D/ / Marbin Ryder MD / Marbin Ryder MD Interpreting Provider: Marbin Ryder MD Active Medications Acetaminophen (Tylenol) 650 mg PO Q6HR PRN PRN Reason: Mild Pain/Fever Stop: 03/16/18 22:18 Acetaminophen/Butalbital/Caffeine (Fioricet) 1 each PO Q6HR PRN; Protocol PRN Reason: Headache Stop: 03/16/18 22:20 Bupropion HCl (Wellbutrin Xl) 150 mg PO QAM VERA Stop: 03/17/18 09:01 Last Admin: 09/15/17 10:29 Dose: 150 mg Dextrose/Water (Dextrose 50% (Syg)) 25 ml IVP AD PRN PRN Reason: Hypoglycemia Stop: 03/16/18 22:23 Divalproex Sodium (Depakote (12 Hr)) 250 mg PO HS VERA Stop: 03/17/18 21:01 Divalproex Sodium (Depakote (12 Hr)) 500 mg PO BID VERA Stop: 03/17/18 09:01 Last Admin: 09/15/17 10:29 Dose: 500 mg Glucagon (Glucagen) 1 mg IM ONCE PRN PRN Reason: Hypoglycemia Stop: 03/16/18 22:23 Glucose (Gluctose) 15 gm PO ONCE PRN PRN Reason: Hypoglycemia Stop: 03/16/18 22:23 Glucose (Gluctose) 30 gm PO ONCE PRN PRN Reason: Hypoglycemia Stop: 03/16/18 22:23 Sodium Chloride (0.9 % Sodium Chloride) 1,000 mls @ 75 mls/hr IVC .[id number] [facility] Stop: 09/16/17 01:09 Last Admin: 09/15/17 00:49 Dose: 75 mls/hr Dextrose (Dextrose 5%) 1,000 mls @ 100 mls/hr IVC .Q10H PRN PRN Reason: HYPOGLYCEMIA Stop: 03/16/18 22:23 Insulin Human Lispro (Humalog) 0 units SQ HS [facility] PRN Reason: Protocol Stop: 03/17/18 21:01 Insulin Human Lispro (Humalog) 0 units SQ Q6HR [facility]A PRN Reason: Protocol Stop: 03/17/18 00:01 Last Admin: 09/15/17 06:18 Dose: Not Given Naloxone HCl (Narcan) 0.4 mg IVP Q2MIN PRN PRN Reason: SEE COMMENTS Stop: 03/16/18 22:18 Propranolol HCl (Inderal) 10 mg PO BID [facility] Stop: 03/17/18 09:01 Last Admin: 09/15/17 10:29 Dose: 10 mg Tramadol HCl (Ultram) 50 mg PO Q6HR PRN PRN Reason: Moderate Pain Stop: 03/16/18 22:18 Last Admin: 09/15/17 00:45 Dose: 50 mg Trazodone HCl (Trazodone) 150 mg PO [facility] Stop: 03/17/18 21:01 - Imaging and Cardiology Stress Test: pending Echo: pending - EKG Interpretation EKG results cardiology: personally reviewed, other (12 hr tele AVG HR 74, SR, no significant pauses or arrhythmias noted.) Consult Discharge Plan - Plan Referrals: Harmony Mcdaniel MD [Primary Care Provider] - 09/21/17 3:00 pm <Cristhian Cornejo - Last Filed: 09/16/17 13:27> Date of Encounter: 09/15/17 Time of Encounter: 22:00 - Attending Attestation I have personally performed a face to face evaluation on this patient. I have reviewed and agree with the care plan. History and Exam by me shows: CC: syncope PT reports had two episodes of passing out, both associated with nausea, occurred while changing positions, first event was while getting out of bed, feeling bad, tried to stand and awoke on the floor. He reports was not injured , no loss of bowel or bladder control, crawled to bathroom, used facitlites, still felt lightheaded and nauseous, stood up to go back to bed, passed out walking back to bed. PT reports he had chest tightness before both syncopal eventes, mild 4/10, lasted several seconds before he lost consciousness. Symptom lasted approx 30 minutes total, eventually resolved with rest. HE has not had a reoccurrence of symptoms. He also reports blurred vision during these episodes, and loss of leg function due to numbness. PMHx: reviewed PE: pt examined, agree with findings as documented IMP/Plan 1. Syncope, unclear etiology, continue to monitor on tele, echo to eval LV systolic function 2. Chest pain - atypical, will continue rule out protocol, if cardiac enzemes remain normal, treadmill cardiolyte stress imaging in AM. Assessment and Plan Discussion w patient/family: The assessment and plan as outlined above was discussed with the patient and/or family members who expressed understanding and agreement. All questions were answered. Thank you for involving us in the care of your patient. Please call with any questions. History of Present Illness History of present illness: Mr. Villeda is a 37 year old male All Systems Review: The remainder of the systems were reviewed and are negative Physical Examination Vital Signs, Last 4 Hours Temp Pulse Resp BP Pulse Ox 09/16/17 11:30 97.7 F 70 16 116/75 95 Results 09/16/17 04:36 09/16/17 04:36 Lab Results 09/15/17 09/16/17 09/16/17 13:15 04:36 04:36 WBC 10.6 Hgb 15.8 Hct 47.3 Plt Count 229 Sodium 136 Potassium 3.5 Chloride 106 Carbon Dioxide 24 BUN 10 Creatinine 0.59 L Glucose 382 H Calcium 9.3 Troponin I < 0.03
--- NOTE | 2017-09-15 17:02 | Neurology - Consult Note ---
Date of Encounter: 09/15/17 Time of Encounter: 16:58 Assessment and Plan (1) Monocular diplopia of both eyes Current Visit: Yes Status: Acute It is difficult to explain monocular diplopia bilaterally from a neurologic perspective. Monocular diplopia is generally either due to a refractory problem of the eye or supratentorial factors. However brainstem lesion could potentially explain the combination of physiologic diplopia weakness of her legs and/or syncope. I would therefore like to get an MRI scan of the brain as well as MRA of the neck and brain. Given the fact that he has significant diabetes and is noncompliant I like to obtain MRI scans of the thoracic spine to rule out the possibility of cord ischemia although this is less likely because he can move his legs. Further recommendations will be made pending the outcome of these tests. History of Present Illness HPI: Mr. Villeda is a 37 year old male who is being seen for neurologic consultation at the request of the ED physician secondary to multiple different complaints. He apparently experienced chest pain with to associated syncopal episodes. After which she complained of monocular diplopia involving each eye as well as a feeling of numbness and paresthesias of both legs. He has a history of obesity, obstructive sleep apnea, diabetes, noncompliance, hypertension, hyperlipidemia. Apparently he experienced an episode of nausea when getting out of bed to go to the bathroom any subsequent he passed out. He still has complaints of monocular diplopia in each eye. Still complains of numbness and paresthesia involving the torso and both legs. He denies headache, denies difficulty, denies confusion. There is no mention of generalized tonic-clonic seizure activity. He estimates that he was only unconscious for a few moments each time. CT scan of the head was negative for any acute event MRI scan of the brain is pending. Troponins have been negative 3. Past Med Surg Social Fam HX - Past Medical History Medical history: arthritis, asthma, COPD, diabetes, hyperlipidemia, hypertension Psychiatric history: anxiety, depression, prior suicide attempt, previous psychiatric hospitalization - Past Surgical History Surgical History: cholecystectomy - Social History Smoking Status: Former smoker Smokeless Tobacco Status: No Alcohol use: occasionally, recent Drug use: none - Family History Father Family Member Ethnicity: Non- Living Status: Hx Family Cardiac Disorders: Yes (Stroke, [place], HLD, HTN) Mother Family Member Ethnicity: Non- Living Status: Still Living Hx Family Cardiac Disorders: Yes (TIA, HLD, HTN) Hx Family Endocrine Disorder: Yes (DM) Brother Family Member Ethnicity: Non- Living Status: Still Living Hx Family Cardiac Disorders: Yes (HLD, HTN) Sister Family Member Ethnicity: Non- Living Status: Still Living Hx Family Cardiac Disorders: Yes (HLD, HTN) Hx Family Endocrine Disorder: Yes (DM) Medications and Allergies Acetaminophen/Butalbital/Caffe [Fioricet] 1 tab PO Q6HR PRN 09/14/17 [History] BuPROPion XL (24 HR) [Wellbutrin XL] 150 mg PO QAM 09/14/17 [History] Divalproex (12 HR) [Depakote (12 HR)] 250 mg PO QPM 09/14/17 [History] Divalproex (12 HR) [Depakote (12 HR)] 500 mg PO BID 09/14/17 [History] Propranolol [Inderal] 10 mg PO BID 09/14/17 [History] Trazodone HCl 150 - 300 mg PO HS 09/14/17 [History] 3 Allergy/AdvReac Type Severity Reaction Status Date / Time potassium Allergy Anaphylaxis Verified 09/14/17 20:53 Penicillins AdvReac Hives Verified 09/14/17 20:53 sodium bicarb Allergy Severe Anaphylaxis Uncoded 03/05/17 13:21 sodium chloride Allergy Severe Anaphylaxis Uncoded 03/05/17 13:21 sodium sulfide Allergy Severe Anaphylaxis Uncoded 03/05/17 13:21 pcn Allergy Mild Hives Uncoded 03/05/17 13:21 peanuts Allergy Unknown Anaphylaxis Uncoded 03/05/17 13:21 Ipratropium [place] Allergy Anaphylaxis Uncoded 03/05/17 13:21 All Systems: The remainder of the systems were reviewed and are negative Review of Systems: The balance of the systems review is negative. Physical Examination - Vital Signs Vital Signs: Initial Vital Signs Temp Pulse Resp BP Pulse Ox 98.4 F 85 18 148/93 95 09/14/17 16:24 09/14/17 16:24 09/14/17 16:24 09/14/17 16:24 09/14/17 16:24 - Neurologic Motor examination - right side: 2/5: wrist flexion, wrist extension, groundsman, tibialis Anterior, toe extension (EHL), plantarflexion, 3/5: deltoids, biceps, triceps, hip flexors, quadriceps Motor examination - left side: 2/5: wrist flexion, wrist extension, groundsman, tibialis Anterior, toe extension (EHL), plantarflexion, 3/5: deltoids, biceps, triceps, hip flexors, quadriceps Detailed sensory examination: other (Profound sensory gradient distally of the upper and lower extremities. This involves all sensory modalities.) Reflex and gait examination: other (Deep tendon reflexes are absent throughout. No long tract signs are present.) Mental Status Examination: awake, alert, oriented to person, oriented to place, oriented to time, follows commands appropriately, answers questions appropriately, no agnosia, no aphasia, no aproxia Cranial nerve examination: PERRL (Patient however claims monocular diplopia bilaterally.), EOMI, visual prasad intact, corneal reflexes brisk symmetrically , sensory to face intact, mastication intact, no facial asymmetry is present, no dysarthria, hearing is intact symmetrically, tongue protrudes midline Cerebellar examination: no dysmetria, performs finger to nose and heel to redding symmetrically without ataxia, no truncal ataxia Results - Laboratory Findings CBC and BMP: 09/15/17 06:00 09/15/17 06:00 Abnormal lab findings: Abnormal lab results Monocytes # 1.4 K/mcL (0.0-1.3) H 09/14/17 17:35 PT 12.2 Seconds (9.4-12.1) H 09/14/17 17:35 Creatinine 0.62 mg/dL (0.70-1.30) L 09/15/17 06:00 Glucose 368 mg/dL (70-105) H 09/15/17 06:00 POC Glucose 256 mg/dL (70-99) H 09/14/17 21:12 Triglycerides 208 mg/dL (< 150) H 09/15/17 06:00 VLDL Cholesterol, Calc 42 mg/dL (< 31) H 09/15/17 06:00 HDL Cholesterol 32 mg/dL (40-59) L 09/15/17 06:00 Consult Discharge Plan - Plan Referrals: Harmony Mcdaniel MD [Primary Care Provider] - 09/21/17 3:00 pm
[2017-09-15 17:49] LABS: Estimated Average Glucose 275 mg/dl; Hemoglobin A1C 11.2 %
--- NOTE | 2017-09-15 20:01 | Internal Med Progress Note ---
Date of Encounter: 09/15/17 Time of Encounter: 09:00 - Assessment and plan (1) Chest pain Current Visit: Yes Status: Acute Assessment and plan: Patient originally presented with chest pain for 2-3 days troponins have been negative he underwent a nuclear stress test which was negative for any ischemia or infarct Cardiology has been consulted Awaiting echo results Qualifiers: Chest pain type: unspecified Qualified Code(s): R07.9 - Chest pain, unspecified (2) Monocular diplopia of both eyes Current Visit: Yes Status: Acute Assessment and plan: Neurology has been consulted recommending MRI of brain as well as MRA of neck and brain also recommending MRI scans of thoracic spine rule out possible cord ischemia-pending results CT of head was negative Continue neuro assessments (3) Syncope Current Visit: Yes Status: Acute Qualifiers: Syncope type: unspecified Qualified Code(s): R55 - Syncope and collapse (4) COPD (chronic obstructive pulmonary disease) Current Visit: Yes Status: Chronic Assessment and plan: No wheezing appears to be stable at this time chest x-ray with no acute process. Bronchodilators as needed oxygen as needed Qualifiers: COPD type: emphysema Emphysema type: unspecified Qualified Code(s): J43.9 - Emphysema, unspecified (5) Diabetes mellitus Current Visit: No Status: Chronic Assessment and plan: Patient is noncompliant and tinea with Accu-Cheks and sliding scale insulin Qualifiers: Diabetes mellitus type: type 2 Diabetes mellitus oysterman insulin use: unspecified fdc insulin use status Diabetes mellitus complication status : with unspecified complications Qualified Code(s): E11.8 - Type 2 diabetes mellitus with unspecified complications - Time Spent With Patient Total time spent is greater than 50% in coordination of care (as documented) at patient's floor/unit and/or counseling patient: - Subjective Interval history: This patient is new to me I did review medical records. Patient was seen earlier during the day. Presently denies any chest pain or shortness of breath he continues to complain of diplopia denies any photophobia no headache complains of vertigo on position change no nystagmus noted his return from his stress test tolerated procedure well - Constitutional Vitals: Temp Pulse Resp BP Pulse Ox 98.7 F 95 16 147/92 94 09/15/17 18:08 09/15/17 18:08 09/15/17 18:08 09/15/17 18:08 09/15/17 18:08 General appearance: Present: A&O X 3 - Head Head exam: Present: atraumatic, normocephalic - Eye Eye exam: Present: PERRL, conjuntiva pink, sclera anicteric Pupils: Present: PERRL - Neck Neck exam general surgery: Present: supple, trachea midline. Absent: lymphadenopathy - Respiratory Respiratory exam: Present: CTAB. Absent: accessory muscle use, rales, rhonchi, wheezes - Cardiovascular Cardiovascular exam: Present: RRR, +S1, +S2. Absent: diastolic murmur, gallop, rubs, systolic murmur - GI/Abdominal GI/Abdominal exam: Present: normal bowel sounds, soft, no peritoneal signs. Absent: distended, tenderness - Extremities Exam Extremities exam: Present: warm, radial pulses palpable and symmetrical. Absent : calf tenderness, cyanotic, pedal edema - Neurological Exam Neurological exam: Present: CN II-XII intact, oriented X3, no focal deficits. Absent: pronater drift, facial droop, speech deficit - Skin Skin exam: Present: dry, intact Internal Medicine: Result - Labs CBC & Chem 7: 09/15/17 06:00 09/15/17 06:00 Labs: Short CBC 09/15/17 Range/Units 06:00 WBC 9.4 (4.3-11.1) K/mcL Hgb 15.4 (12.9-16.9) g/dL Hct 45.7 (37.5-50.1) % Plt Count 208 (140-400) K/mcL BMP 09/15/17 06:00 Sodium 137 Potassium 3.7 Chloride 105 Carbon Dioxide 26 BUN 10 Creatinine 0.62 L Glucose 368 H Calcium 9.7 Cardiac Enzymes 09/14/17 09/15/17 09/15/17 Range/Units 22:31 06:00 13:15 Troponin I < 0.03 < 0.03 < 0.03 (< 0.04) ng/mL Liver Function 09/15/17 Range/Units 06:00 Total Bilirubin 0.3 (0.3-1.0) mg/dL AST 16 (13-39) Units/L ALT 22 (7-52) Units/L Alkaline Phosphatase 74 (34-104) Units/L Albumin 3.8 (3.5-5.7) g/dL - ABG Interpretation ABG results: PT/INR, D-dimer PT 12.2 Seconds (9.4-12.1) H 09/14/17 17:35 - Impressions Impressions Echocardiogram 09/15/17 22:20 Impressions: LVEF 60-65%. Normal LV chamber size, wall thickness and function. Indeterminate diastolic function. Normal right ventricular structure and function. Unable to estimate RVSP due to lack of TR jet. No significant valvular dysfunction. Left Ventricular Wall Motion: Rest Echo Findings All wall segments showed normal motion. Findings: Study Quality * Technically adequate exam. ECG Findings * Normal sinus rhythm. Left Ventricle * LVEF 60-65%. * Normal LV chamber size, wall thickness and function. * Indeterminate diastolic function. Right Ventricle * Normal right ventricular structure and function. Left Atrium * Mildly dilated left atrium. Right Atrium * Mildly dilated right atrium. Aortic Valve * Trileaflet aortic valve with normal function. * No aortic regurgitation. * No aortic stenosis. Mitral Valve * Normal mitral valve structure and function. * No mitral regurgitation. * No mitral stenosis. Tricuspid Valve * Normal tricuspid valve structure and function. * Trace tricuspid regurgitation. * Unable to estimate RVSP due to lack of TR jet. Pulmonic Valve * Normal pulmonic valve structure and function. * No pulmonic regurgitation. Aorta * Normally sized aortic root. Pericardium * The pericardium appears normal. IVC * Normal IVC dimensions and inspiratory collapse. Pulmonary Artery * Normal visualized portions of the main pulmonary artery. Consult Discharge Plan - Plan Referrals: Harmony Mcdaniel MD [Primary Care Provider] - 09/21/17 3:00 pm
[2017-09-15] MEDS ORDERED: Insulin LISPRO 300 UNITS/3 ML VIAL SQ SCH (21:00)
[2017-09-15] MEDS: Divalproex (12 HR) 250 MG TABLET PO SCH (22:13)
[2017-09-15] MEDS: traZODone 50 MG TABLET PO SCH ×2 (22:14→22:15)
[2017-09-16] MEDS: Insulin LISPRO 300 UNITS/3 ML VIAL SQ SCH ×4 (00:31→22:09)
[2017-09-16 05:24] LABS: Basophils # 0.1 K/mcL (0.0-0.2); Basophils % 1.2 %; Eosinophils # 0.5 K/mcL (0.0-0.6); Eosinophils % 4.5 %; Hematocrit 47.3 % (37.5-50.1); Hemoglobin 15.8 g/dL (12.9-16.9); Immature Granulocytes % 0.5 % (0-4); Lymphocytes # 3.3 K/mcL (0.6-4.6); Lymphocytes % 31.4 %; Mean Corpuscular HGB Conc 33.4 g/dL (31.6-35.5); Mean Corpuscular Hemoglobin 28.2 pg (28.0-33.3); Mean Corpuscular Volume 84.3 fL (83.0-100.0); Mean Platelet Volume 10.7 fL (9.4-12.4); Monocytes # 1.3 K/mcL (0.0-1.3); Monocytes % 11.8 %; Neutrophils # 5.4 K/mcL (1.6-8.9); Platelet Count 229 K/mcL (140-400); Red Blood Count 5.61 M/mcL (4.19-5.50); Red Cell Distribution Width 13.2 % (11.5-14.5); Segmented Neutrophils % 50.6 %
[2017-09-16 05:32] LABS: BUN/Creatinine Ratio 17 (6-26); Blood Urea Nitrogen 10 mg/dL (6-20); Calcium 9.3 mg/dL (8.6-10.3); Carbon Dioxide 24 mEq/L (23-29); Chloride 106 mEq/L (98-107); Glucose 382 mg/dL (70-105); Osmolality,Calculated 297 (280-300); Potassium 3.5 mEq/L (3.5-5.1); Sodium 136 mEq/L (136-145); eGFR For African Americans > 60 (> 60); eGFR For Non-African Americans > 60 (> 60)
[2017-09-16] MEDS: BuPROPion XL (24 HR) 150 MG TABLET PO SCH (09:45)
[2017-09-16] MEDS: Acetaminophen/Butalbital/CaffeineTABLET PO PRN ×2 (09:45→19:47)
[2017-09-16] MEDS: Divalproex (12 HR) 500 MG TABLET PO SCH ×2 (09:45→22:00)
--- NOTE | 2017-09-16 10:22 | Neurology Progress Note ---
<Naun Johnson - Last Filed: 09/16/17 11:16> Date of Encounter: 09/16/17 Time of Encounter: 10:20 Assessment and Plan (1) Monocular diplopia of both eyes Current Visit: Yes Status: Acute Unclear etiology at this point. Patient does have uncontrolled diabetes mellitus which could be contributing to his vision symptoms. MRI, MRA have been negative. Thoracic MRI was negative for any cord compression or cord signal abnormalities. During exam patient puts forward poor effort. Patient is able to sit up on his bed without any difficulty but when asked to raise his arms up he reports he is unable to do so because he is weak. Similarly when asked to raise his legs up at the hip joint bilaterally he is unable to do so however patient is able to lift his legs up and sit on the side of the bed without any difficulty. It is concerning that patient does not have any deep tendon reflexes and sensory exam shows significant decrease in sensation of light touch, pinprick however this is subjective. Patient may need EMG outpatient. Furthermore his history of anxiety depression, mood disorder may play a role in his symptoms. (2) Paresthesia of lower extremity Current Visit: Yes Status: Acute See above. (3) Mood disorder Current Visit: Yes Status: Chronic Patient has history of significant anxiety and depression. He is on valproic acid for mood stabilization. Patient has in the past been admitted to [facility] for suicidal ideations. Today he denies any suicidal ideations. However his mood disorder may play a role in his presenting symptoms. (4) Uncontrolled diabetes mellitus Current Visit: Yes Status: Acute Patient has very poorly controlled diabetes mellitus since 2013. Reviewing past admissions patient is noncompliant with his diet and medications. He is not taking metformin currently or insulin. This can definitely contribute to decreased deep tendon reflexes are seen and examined as well as decrease proprioception, and poor lower extremity sensation. Patient needs significantly better glycemic control and to be started back on metformin and insulin regimen. 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 He also complains of being very fatigued. Currently he denies chest pain, headache. He is tolerating his diet. Patient denies any recent worsening of his anxiety, depression at home. He reports he is disabled and usually plays with his nieces at home. He denies losing interest in activities he likes. He reports taking his medications as prescribed. Objective - Constitutional Vitals: Temp Pulse Resp BP Pulse Ox 98.2 F 74 15 113/70 95 09/16/17 07:28 09/16/17 07:28 09/16/17 07:28 09/16/17 07:28 09/16/17 07:28 General appearance: Present: A&O X 3 - Neurological Exam Sensorimotor examination: Present: intact Motor Examination: Present: other (poor effort when performing muscle strength testing ) Motor examination - right side: 3/5: deltoids, biceps, triceps, wrist flexion, wrist extension, fashion consultant, toe extension (EHL), plantarflexion, 4/5: hip flexors, tibialis Anterior, quadriceps Motor examination - left side: 3/5: deltoids, biceps, triceps, wrist flexion, wrist extension, fashion consultant, toe extension (EHL), plantarflexion, 4/5: hip flexors, quadriceps, tibialis Anterior Sensation intact: Present: other (Profound sensory gradient distally of the upper and lower extremities. This involves all sensory modalities. ) Reflex and gait examination: other (Deep tendon reflexes are absent throughout.) Reflexes: Biceps: 0, Triceps: 0, Brachioradialis: 0, Patella: 0, Achilles: 0 Mental Status Examination: Present: awake, alert, oriented to person, oriented to place, oriented to time, follows commands appropriately, answers questions appropriately, no agnosia, no aphasia, no aproxia Cranial nerve examination: Present: PERRL (Patient however claims monocular diplopia bilaterally.), EOMI, visual prasad intact, corneal reflexes brisk symmetrically, sensory to face intact, mastication intact, no facial asymmetry is present, no dysarthria, hearing is intact symmetrically, tongue protrudes midline Cerebellar examination: Present: no dysmetria, performs finger to nose and heel to redding symmetrically without ataxia, no truncal ataxia Results - Laboratory Findings CBC and BMP: 09/16/17 04:36 09/16/17 04:36 Abnormal lab findings: Abnormal lab results RBC 5.61 M/mcL (4.19-5.50) H 09/16/17 04:36 PT 12.2 Seconds (9.4-12.1) H 09/14/17 17:35 Creatinine 0.59 mg/dL (0.70-1.30) L 09/16/17 04:36 Glucose 382 mg/dL (70-105) H 09/16/17 04:36 POC Glucose 292 mg/dL (70-99) H 09/16/17 00:24 Hemoglobin A1c 11.2 % (-5.6) H 09/15/17 06:00 Triglycerides 208 mg/dL (< 150) H 09/15/17 06:00 VLDL Cholesterol, Calc 42 mg/dL (< 31) H 09/15/17 06:00 HDL Cholesterol 32 mg/dL (40-59) L 09/15/17 06:00 Consult Discharge Plan - Plan Referrals: Harmony Mcdaniel MD [Primary Care Provider] - 09/21/17 3:00 pm <Garret Rojas - Last Filed: 09/16/17 16:31> Date of Encounter: 09/16/17 Time of Encounter: 16:22 Assessment and Plan (1) Monocular diplopia of both eyes Current Visit: Yes Status: Acute I am unable to identify a unified diagnosis or even a legitimate neurologic diagnosis to explain this presentation. I cannot explain monocular diplopia of both eyes from a neurologic perspective. He also does have inability to move his arms and legs functionally, but does not give good effort when asked to resist active force. I do not believe he has Guillain-[place] as he does have symmetric reflexes of the brachial radialis muscles. MRI studies were negative for any intracranial lesion that might explain this, MRI of the thoracic spine was negative for tumor, hemorrhage, or infarct. It is possible that the syncope may be due to dysautonomia perhaps associated with his diabetes. Otherwise I highly suspect that we are dealing with either conversion or malingering. May discharge him at your discretion. I will reevaluate him at your request. Subjective Interval history: The chart was reviewed, patient was seen and examined independently. The case was discussed with Dr. Johnson. Several tests were ordered yesterday including MRI scan of the head and neck MRA of the head and neck MRI of the thoracic spine. All of the studies were normal. Patient still has the same complaints he was admitted with which include monocular diplopia in both eyes, still claims to have weakness of the upper and lower extremities. Objective - Constitutional Vitals: Temp Pulse Resp BP Pulse Ox 98.1 F 74 16 124/80 96 09/16/17 14:18 09/16/17 14:18 09/16/17 14:18 09/16/17 14:18 09/16/17 14:18 - Neurological Exam Motor Examination: Present: other (I agree that he does have poor effort with muscle strength testing, however he does use his upper and lower extremities functionally and one being passively observed he moves his upper and lower extremities freely.) Sensation intact: Present: other (Patient does have a profound sensory gradient from distal to proximal involving the upper and lower extremities. He does not however have a spinal level. He maintains normal sensation in the perineum.) Reflex and gait examination: other (He does have brachial radialis reflexes symmetrically triceps reflexes are diminished, patellar and Achilles reflexes are absent. No long tract signs are present.) Results - Laboratory Findings CBC and BMP: 09/16/17 04:36 09/16/17 04:36 Abnormal lab findings: Abnormal lab results RBC 5.61 M/mcL (4.19-5.50) H 09/16/17 04:36 PT 12.2 Seconds (9.4-12.1) H 09/14/17 17:35 Creatinine 0.59 mg/dL (0.70-1.30) L 09/16/17 04:36 Glucose 382 mg/dL (70-105) H 09/16/17 04:36 POC Glucose 243 mg/dL (70-99) H 09/16/17 07:27 Hemoglobin A1c 11.2 % (-5.6) H 09/15/17 06:00 Triglycerides 208 mg/dL (< 150) H 09/15/17 06:00 VLDL Cholesterol, Calc 42 mg/dL (< 31) H 09/15/17 06:00 HDL Cholesterol 32 mg/dL (40-59) L 09/15/17 06:00
--- NOTE | 2017-09-16 10:40 | Cardiology Progress Note ---
Date of Encounter: 09/16/17 Time of Encounter: 10:38 Assessment and Plan (1) Syncope Current Visit: Yes Status: Acute Reports 2 syncopal events prior to admission, both when attempting to stand/ walk. However, also complained of lower extremity numbness and double vision-- continued current complaints. Neurology on board. Troponin negative x 3. Orthostatic vitals negative Stress test negative for ischemia or infarct. TTE EF preserved, no significant valvular dysfunction. No arrhythmias noted on tele. Cardiology signing off. Reconsult PRN. Qualifiers: Syncope type: unspecified Qualified Code(s): R55 - Syncope and collapse (2) Chest pain Current Visit: Yes Status: Acute Right sided chest pain initially reported as intermittent since syncopal events with radiation to right arm--no exacerbating or alleviating factors. Now reports constant chest pain 5/10 since yesterday with chest wall tenderness on palpation. Troponin negative x 3. No ischemic EKG changes. Risk factors for CAD--hx of tobacco abuse, family hx, HTN, HLD, DM, obesity. Stress test negative for ischemia or infarct. TTE EF preserved, no significant valvular dysfunction. Chest pain is atypical and currently reproducible accompanied by complaints of lower extremity numbness and double vision. Do not suspect that is a primary cardiac etiology. Cardiology signing off. Reconsult PRN. Qualifiers: Chest pain type: unspecified Qualified Code(s): R07.9 - Chest pain, unspecified Discussion w patient/family: The assessment and plan as outlined above was discussed with the patient and/or family members who expressed understanding and agreement. All questions were answered. Thank you for involving us in the care of your patient. Please call with any questions. I will discuss all the above with Dr. Mike Ruiz and make changes as necessary. Subjective Principal diagnosis: monoocular diplopia of both eyes Interval history: Stress test yesterday negative for ischemia or infarct, TTE EF preserved, no significant valvular dysfunction. Orthostatic vitals negative. Pt reports intermittent headaches overnight, constant chest pain 5/10, lower extremity numbness and double vision. Objective Vital Signs, Last 4 Hours Temp Pulse Resp BP Pulse Ox 09/16/17 07:28 98.2 F 74 15 113/70 95 Vital Signs Temp Pulse Pulse Pulse Resp BP BP 09/16/17 07:28 98.2 F 74 15 113/70 09/16/17 03:32 98.4 F 79 16 108/64 09/15/17 23:41 98.2 F 86 16 102/66 09/15/17 23:00 09/15/17 18:08 98.7 F 95 16 147/92 09/15/17 18:00 98.7 F 95 16 147/92 09/15/17 16:04 93 93 134/86 09/15/17 15:23 98.2 F 78 14 135/76 09/15/17 14:00 98.2 F 78 14 135/76 09/15/17 11:13 98.5 F 76 14 122/70 BP BP Pulse Ox 09/16/17 07:28 95 09/16/17 03:32 94 09/15/17 23:41 94 09/15/17 23:00 96 09/15/17 18:08 94 09/15/17 18:00 09/15/17 16:04 144/94 141/95 09/15/17 15:23 95 09/15/17 14:00 09/15/17 11:13 97 Intake and Output 09/15/17 09/16/17 09/16/17 23:59 07:59 15:59 Output Total 1200 / 1200 600 / 600 Balance -1200 / -1200 -600 / -600 Output: Urine 1200 / 1200 600 / 600 Other: Weight 97.7 kg Blood Glucose* 285 243 Patient Weight 09/16/17 23:59 Weight 97.7 kg General: Conversant HEENT: Atraumatic, Normocephaly, Mucus Membranes Moist Neck: No JVD, Normal carotid pulses Cardiac: Reg Rate and Rhythm, Normal S1 and S2, No Murmur Lungs: Normal Breath Sounds, No Wheeze, Rales, Rhonchi Neuro: Alert and responsive, No focal deficits noted Abdomen: Soft, Non-Tender Skin: No rashes noted on visualized skin Musculoskeletal: No Chest Wall Tenderness Extremities: No Clubbing, No Cyanosis, No Edema, Normal Pulses Results 09/16/17 04:36 09/16/17 04:36 Lab Results 09/15/17 09/16/17 09/16/17 13:15 04:36 04:36 WBC 10.6 Hgb 15.8 Hct 47.3 Plt Count 229 Sodium 136 Potassium 3.5 Chloride 106 Carbon Dioxide 24 BUN 10 Creatinine 0.59 L Glucose 382 H Calcium 9.3 Troponin I < 0.03 Short CBC 09/16/17 Range/Units 04:36 WBC 10.6 (4.3-11.1) K/mcL Hgb 15.8 (12.9-16.9) g/dL Hct 47.3 (37.5-50.1) % Plt Count 229 (140-400) K/mcL Neutrophils # 5.4 (1.6-8.9) K/mcL BMP 09/16/17 Range/Units 04:36 Sodium 136 (136-145) mEq/L Potassium 3.5 (3.5-5.1) mEq/L Chloride 106 (98-107) mEq/L Carbon Dioxide 24 (23-29) mEq/L BUN 10 (6-20) mg/dL Creatinine 0.59 L (0.70-1.30) mg/dL Glucose 382 H (70-105) mg/dL Calcium 9.3 (8.6-10.3) mg/dL Cardiac Enzymes 09/15/17 Range/Units 13:15 Troponin I < 0.03 (< 0.04) ng/mL Impressions Head MRA 09/15/17 17:15 IMPRESSION: No acute intracranial abnormality. MRA head without acute arterial abnormality. MRA neck without acute arterial abnormality. D/ / Ruben Mi / Ruben Mi Interpreting Provider: Ruben Mi Brain MRI 09/15/17 17:16 IMPRESSION: No acute intracranial abnormality. MRA head without acute arterial abnormality. MRA neck without acute arterial abnormality. D/ / Ruben Mi / Ruben Mi Interpreting Provider: Ruben Mi Neck MRA 09/15/17 17:19 IMPRESSION: No acute intracranial abnormality. MRA head without acute arterial abnormality. MRA neck without acute arterial abnormality. D/ / Ruben Mi / Ruben Mi Interpreting Provider: Ruben Mi Thoracic Spine MRI 09/15/17 17:21 IMPRESSION: No evidence of cord compression or cord signal abnormality. D/ / Ruben Mi / Ruben Mi Interpreting Provider: Ruben Mi Echocardiogram 09/15/17 22:20 Impressions: LVEF 60-65%. Normal LV chamber size, wall thickness and function. Indeterminate diastolic function. Normal right ventricular structure and function. Unable to estimate RVSP due to lack of TR jet. No significant valvular dysfunction. Left Ventricular Wall Motion: Rest Echo Findings All wall segments showed normal motion. Findings: Study Quality * Technically adequate exam. ECG Findings * Normal sinus rhythm. Left Ventricle * LVEF 60-65%. * Normal LV chamber size, wall thickness and function. * Indeterminate diastolic function. Right Ventricle * Normal right ventricular structure and function. Left Atrium * Mildly dilated left atrium. Right Atrium * Mildly dilated right atrium. Aortic Valve * Trileaflet aortic valve with normal function. * No aortic regurgitation. * No aortic stenosis. Mitral Valve * Normal mitral valve structure and function. * No mitral regurgitation. * No mitral stenosis. Tricuspid Valve * Normal tricuspid valve structure and function. * Trace tricuspid regurgitation. * Unable to estimate RVSP due to lack of TR jet. Pulmonic Valve * Normal pulmonic valve structure and function. * No pulmonic regurgitation. Aorta * Normally sized aortic root. Pericardium * The pericardium appears normal. IVC * Normal IVC dimensions and inspiratory collapse. Pulmonary Artery * Normal visualized portions of the main pulmonary artery. Active Medications Acetaminophen (Tylenol) 650 mg PO Q6HR PRN PRN Reason: Mild Pain/Fever Stop: 03/16/18 22:18 Last Admin: 09/15/17 22:13 Dose: 650 mg Acetaminophen/Butalbital/Caffeine (Fioricet) 1 each PO Q6HR PRN; Protocol PRN Reason: Headache Stop: 03/16/18 22:20 Last Admin: 09/16/17 09:45 Dose: 1 each Bupropion HCl (Wellbutrin Xl) 150 mg PO QAM VERA Stop: 03/17/18 09:01 Last Admin: 09/16/17 09:45 Dose: 150 mg Dextrose/Water (Dextrose 50% (Syg)) 25 ml IVP AD PRN PRN Reason: Hypoglycemia Stop: 03/16/18 22:23 Divalproex Sodium (Depakote (12 Hr)) 250 mg PO HS [facility] Stop: 03/17/18 21:01 Last Admin: 09/15/17 22:13 Dose: 250 mg Divalproex Sodium (Depakote (12 Hr)) 500 mg PO BID [facility] Stop: 03/17/18 09:01 Last Admin: 09/16/17 09:45 Dose: 500 mg Glucagon (Glucagen) 1 mg IM ONCE PRN PRN Reason: Hypoglycemia Stop: 03/16/18 22:23 Glucose (Gluctose) 15 gm PO ONCE PRN PRN Reason: Hypoglycemia Stop: 03/16/18 22:23 Glucose (Gluctose) 30 gm PO ONCE PRN PRN Reason: Hypoglycemia Stop: 03/16/18 22:23 Dextrose (Dextrose 5%) 1,000 mls @ 100 mls/hr IVC .Q10H PRN PRN Reason: HYPOGLYCEMIA Stop: 03/16/18 22:23 Insulin Human Lispro (Humalog) 0 units SQ HS [facility] PRN Reason: Protocol Stop: 03/17/18 21:01 Last Admin: 09/16/17 00:28 Dose: 5 units Insulin Human Lispro (Humalog) 0 units SQ Q6HR [facility]A PRN Reason: Protocol Stop: 03/17/18 00:01 Last Admin: 09/16/17 09:46 Dose: 8 units Naloxone HCl (Narcan) 0.4 mg IVP Q2MIN PRN PRN Reason: SEE COMMENTS Stop: 03/16/18 22:18 Propranolol HCl (Inderal) 10 mg PO BID [facility] Stop: 03/17/18 09:01 Last Admin: 09/16/17 09:45 Dose: 10 mg Tramadol HCl (Ultram) 50 mg PO Q6HR PRN PRN Reason: Moderate Pain Stop: 03/16/18 22:18 Last Admin: 09/15/17 00:45 Dose: 50 mg Trazodone HCl (Trazodone) 150 mg PO [facility] Stop: 03/17/18 21:01 Last Admin: 09/15/17 22:14 Dose: 150 mg - Imaging and Cardiology Stress Test: report reviewed Echo: report reviewed - EKG Interpretation EKG results cardiology: other (12 hr tele AVG HR 76, SR, no significant pauses or arrhythmias noted.) Consult Discharge Plan - Plan Referrals: Le,Tri H, MD [Primary Care Provider] - 09/21/17 3:00 pm
[2017-09-16] MEDS ORDERED: Insulin LISPRO 300 UNITS/3 ML VIAL SQ SCH ×2 (12:30)
--- NOTE | 2017-09-16 19:07 | Internal Med Progress Note ---
Date of Encounter: 09/17/17 Time of Encounter: 11:00 - Assessment and plan (1) Paresthesia of lower extremity Current Visit: Yes Status: Acute Assessment and plan: Thoracic MRI negative for any cord compression During exam patient put little effort into participation , patient has difficulty raising legs off bed however he is able to stand beside bed without difficulty. He will not ambulate he states he is afraid he will fall however nursing staff reports he was able to ambulate into shower without difficulty. He has been evaluated by PT/OT who are recommending SNF placement He has been evaluated by neurology - unsure if rt uncontrolled diabetes or if possibly conversion disorder/ malingering - recommending EMG as out patient (2) Chest pain Current Visit: Yes Status: Acute Assessment and plan: No chest pain at this time troponins have been negative he underwent a nuclear stress test which was negative for any ischemia or infarct Cardiology has been consulted orthostatic negative no arrythmia on monito echo preserved EF no significant valvular disease Qualifiers: Chest pain type: unspecified Qualified Code(s): R07.9 - Chest pain, unspecified (3) Monocular diplopia of both eyes Current Visit: Yes Status: Acute Assessment and plan: unclear etiology MRI MRA negative thoracic MRI negative for any cord compression Continue neuro assessments neurology has been consulted and appreciate recommendations (4) Syncope Current Visit: Yes Status: Acute Assessment and plan: Orthostatic are normal has been seen by cardiology no cardiac arrhythmias echo with preserved EF and normal valves Qualifiers: Syncope type: unspecified Qualified Code(s): R55 - Syncope and collapse (5) COPD (chronic obstructive pulmonary disease) Current Visit: Yes Status: Chronic Assessment and plan: No wheezing appears to be stable at this time chest x-ray with no acute process. 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 Denies any CP or SOB - Constitutional Vitals: Temp Pulse Resp BP Pulse Ox 98.1 F 74 16 124/80 96 09/16/17 14:18 09/16/17 14:18 09/16/17 14:18 09/16/17 14:18 09/16/17 14:18 General appearance: Present: A&O X 3, obese - Head Head exam: Present: atraumatic, normocephalic - Eye Eye exam: Present: PERRL, conjuntiva pink, sclera anicteric Pupils: Present: PERRL - Neck Neck exam general surgery: Present: supple, trachea midline. Absent: lymphadenopathy - Respiratory Respiratory exam: Present: CTAB. Absent: accessory muscle use, rales, rhonchi, wheezes - Cardiovascular Cardiovascular exam: Present: RRR, +S1, +S2. Absent: diastolic murmur, gallop, rubs, systolic murmur - GI/Abdominal GI/Abdominal exam: Present: normal bowel sounds, soft, no peritoneal signs. Absent: distended, tenderness - Extremities Exam Extremities exam: Present: warm, radial pulses palpable and symmetrical. Absent : calf tenderness, cyanotic, pedal edema - Expanded Upper Extremities Exam Neurosensory exam: Present: 2-point discrimination - Expanded Lower Extremities Exam Neuro vascular tendon exam: Present: decreased fine/light touch, sensory deficit - Neurological Exam Neurological exam: Present: CN II-XII intact, oriented X3. Absent: pronater drift, facial droop, speech deficit - Expanded Neurological Exam Cranial Nerves: EOM's intact PM: Normal Cerebellar function: finger to nose: Normal, heel to redding: Normal, Romberg: Normal Sensory exam: LE 2 point discrimination: Abnormal Left, Abnormal Right, lower extremity light touch: Abnormal Left, Abnormal Right, lower extremity pin prick : Abnormal Left, Abnormal Right, upper extremity light touch: Normal, upper extremity pin prick: Normal Neuro motor strength exam: LUE: 4, RUE: 3, LLE: 3, RLE: 3 Coma Scale Eye Opening: Spontaneous Coma Scale Motor Response: Obeys Commands Coma Scale Verbal Response: Oriented Coma Scale Total: 15 - Skin Skin exam: Present: dry, intact Internal Medicine: Result - Labs CBC & Chem 7: 09/16/17 04:36 09/17/17 04:32 Labs: Short CBC 09/16/17 Range/Units 04:36 WBC 10.6 (4.3-11.1) K/mcL Hgb 15.8 (12.9-16.9) g/dL Hct 47.3 (37.5-50.1) % Plt Count 229 (140-400) K/mcL Neutrophils # 5.4 (1.6-8.9) K/mcL BMP 09/16/17 04:36 Sodium 136 Potassium 3.5 Chloride 106 Carbon Dioxide 24 BUN 10 Creatinine 0.59 L Glucose 382 H Calcium 9.3 - ABG Interpretation ABG results: PT/INR, D-dimer PT 12.2 Seconds (9.4-12.1) H 09/14/17 17:35 - Impressions Impressions Head MRA 09/15/17 17:15 IMPRESSION: No acute intracranial abnormality. MRA head without acute arterial abnormality. MRA neck without acute arterial abnormality. D/ / Ruben Mi / Ruben Mi Interpreting Provider: Ruben Mi Brain MRI 09/15/17 17:16 IMPRESSION: No acute intracranial abnormality. MRA head without acute arterial abnormality. MRA neck without acute arterial abnormality. D/ / Ruben Mi / Ruben Mi Interpreting Provider: Ruben Mi Neck MRA 09/15/17 17:19 IMPRESSION: No acute intracranial abnormality. MRA head without acute arterial abnormality. MRA neck without acute arterial abnormality. D/ / Ruben Mi Interpreting Provider: Ruben Mi Thoracic Spine MRI 09/15/17 17:21 IMPRESSION: No evidence of cord compression or cord signal abnormality. D/ / Ruben Mi / Ruben Mi Interpreting Provider: Ruben Mi Consult Discharge Plan - Plan Referrals: Harmony Mcdaniel MD [Primary Care Provider] - 09/21/17 3:00 pm
[2017-09-16] MEDS: traZODone 50 MG TABLET PO SCH (22:00)
[2017-09-16] MEDS: Divalproex (12 HR) 250 MG TABLET PO SCH (22:00)
[2017-09-16] MEDS: Insulin DETEMIR 100 UNIT/ML X5UNITS SQ SCH (22:00)
[2017-09-17 05:39] LABS: BUN/Creatinine Ratio 22 (6-26); Blood Urea Nitrogen 13 mg/dL (6-20); Calcium 9.4 mg/dL (8.6-10.3); Carbon Dioxide 22 mEq/L (23-29); Chloride 105 mEq/L (98-107); Glucose 379 mg/dL (70-105); Osmolality,Calculated 300 (280-300); Potassium 3.6 mEq/L (3.5-5.1); Sodium 137 mEq/L (136-145); eGFR For African Americans > 60 (> 60); eGFR For Non-African Americans > 60 (> 60)
[2017-09-17] MEDS: Insulin LISPRO 300 UNITS/3 ML VIAL SQ SCH ×3 (08:18→16:43)
[2017-09-17] MEDS: BuPROPion XL (24 HR) 150 MG TABLET PO SCH (08:18)
[2017-09-17] MEDS: Divalproex (12 HR) 500 MG TABLET PO SCH ×2 (08:18→20:29)
[2017-09-17] MEDS: Acetaminophen/Butalbital/CaffeineTABLET PO PRN (08:31)
--- NOTE | 2017-09-17 12:29 | Internal Med Progress Note ---
Date of Encounter: 09/17/17 Time of Encounter: 12:29 - Assessment and plan (1) Paresthesia of lower extremity Current Visit: Yes Status: Acute Assessment and plan: Thoracic MRI negative for any cord compression During exam patient put little effort into participation , patient has difficulty raising legs off bed however he is able to stand beside bed without difficulty. He will not ambulate he states he is afraid he will fall. He has been evaluated by PT/OT who are recommending SNF placement - social service attempting placement He has been evaluated by neurology - unsure if rt uncontrolled diabetes or if possibly conversion disorder/ malingering - recommending [facility] as out patient (2) Chest pain Current Visit: Yes Status: Acute Assessment and plan: No chest pain at this time troponins have been negative he underwent a nuclear stress test which was negative for any ischemia or infarct Cardiology has been consulted orthostatic negative no arrythmia on monito echo preserved EF no significant valvular disease Qualifiers: Chest pain type: unspecified Qualified Code(s): R07.9 - Chest pain, unspecified (3) Monocular diplopia of both eyes Current Visit: Yes Status: Acute Assessment and plan: unclear etiology MRI MRA negative thoracic MRI negative for any cord compression Continue neuro assessments neurology has been consulted and appreciate recommendations (4) Syncope Current Visit: Yes Status: Acute Assessment and plan: Orthostatic are normal has been seen by cardiology no cardiac arrhythmias echo with preserved EF and normal valves MRI MRA head and neck WNL Qualifiers: Syncope type: unspecified Qualified Code(s): R55 - Syncope and collapse (5) COPD (chronic obstructive pulmonary disease) Current Visit: Yes Status: Chronic Assessment and plan: No wheezing appears to be stable at this time chest x-ray with no acute process. 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 He is able to stand besdie bed unassisted. 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 Absent: lymphadenopathy - Respiratory Respiratory exam: Present: CTAB. Absent: accessory muscle use, rales, rhonchi, wheezes - Cardiovascular Cardiovascular exam: Present: RRR, +S1, +S2. Absent: diastolic murmur, gallop, rubs, systolic murmur - GI/Abdominal GI/Abdominal exam: Present: normal bowel sounds, soft, no peritoneal signs. Absent: distended, tenderness - Extremities Exam Extremities exam: Present: warm, radial pulses palpable and symmetrical. Absent : calf tenderness, cyanotic, pedal edema - Neurological Exam Neurological exam: Present: CN II-XII intact, oriented X3, no focal deficits. Absent: pronater drift, facial droop, speech deficit - Expanded Neurological Exam Cerebellar function: finger to nose: Normal, heel to redding: Normal, Romberg: Normal Sensory exam: LE 2 point discrimination: Abnormal Left, lower extremity light touch: Abnormal Left, lower extremity pin prick: Abnormal Left, UE 2 point discrimination: Normal, upper extremity light touch: Normal, upper extremity pin prick: Normal Neuro motor strength exam: LUE: 4, RUE: 4, LLE: 3, RLE: 3 Coma Scale Eye Opening: Spontaneous Coma Scale Motor Response: Obeys Commands Coma Scale Verbal Response: Oriented Coma Scale Total: 15 Internal Medicine: Result - Labs CBC & Chem 7: 09/16/17 04:36 09/17/17 04:32 Labs: BMP 09/17/17 04:32 Sodium 137 Potassium 3.6 Chloride 105 Carbon Dioxide 22 L BUN 13 Creatinine 0.60 L Glucose 379 H Calcium 9.4 - ABG Interpretation ABG results: PT/INR, D-dimer PT 12.2 Seconds (9.4-12.1) H 09/14/17 17:35 Consult Discharge Plan - Plan Referrals: Harmony Mcdaniel MD [Primary Care Provider] - 09/21/17 3:00 pm
--- NOTE | 2017-09-17 18:27 | Electrocardiograph Report ---
[address] [address] Test Date: 2017-09-14 Pat Name: Gamaliel Villeda Department: 104 Room: 3B Gender: M Cut Off Man: MARIE : 1980 Requested By: Susana Link Order Number: [id number] Reading MD: Mallory Ruiz Measurements Intervals [place] Rate: 83 P: 51 GA: 146 QRS: 42 QRSD: 97 T: 27 QT: 358 QTc: 398 Interpretive Statements SINUS RHYTHM NONSPECIFIC T-WAVE ABNORMALITY Electronically Signed On 09-17-2017 18:25:31 EDT by Mallory Ruiz
--- NOTE | 2017-09-17 18:47 | Discharge Summary ---
- NOTES TO OUTPATIENT PROVIDER Notes to Outpatient Provider: follow up with neurology, Home health PT/OT - noncompliance with diabetic diet and blood glucose will need to be monitored Date of Encounter: 09/17/17 Time of Encounter: 18:45 - Discharge Diagnosis (1) Paresthesia of lower extremity Priority: Primary Status: Acute (2) Chest pain Priority: Primary Status: Acute Qualifiers: Chest pain type: unspecified Qualified Code(s): R07.9 - Chest pain, unspecified (3) Monocular diplopia of both eyes Priority: Primary Status: Acute (4) Syncope Priority: Primary Status: Acute Qualifiers: Syncope type: unspecified Qualified Code(s): R55 - Syncope and collapse (5) COPD (chronic obstructive pulmonary disease) Priority: Secondary Status: Chronic Qualifiers: COPD type: emphysema Emphysema type: unspecified Qualified Code(s): J43.9 - Emphysema, unspecified (6) Diabetes mellitus Priority: Secondary Status: Chronic Qualifiers: Diabetes mellitus type: type 2 Diabetes mellitus nutrition tech insulin use: unspecified halfway insulin use status Diabetes mellitus complication status : with unspecified complications Qualified Code(s): E11.8 - Type 2 diabetes mellitus with unspecified complications Hospital course: Mr. Villeda is a 37 year old male past medical history MIKE DM noncompliance HTN GERD high chol COPD asthma arthritis presented to the ED after experiencing syncopal episode inteermitten cp generalized weakness and double vision. CT of head was negative Neurology was contacted MRI MRA of brain and neck WNL MRI of thoracic spine with no abnormality . Neurology Suspect sx maybe rt to diabetes which is uncontrolled dt noncompliance- syncope maybe dt as well as "It is possible that the syncope may be due to dysautonomia perhaps associated with his diabetes. Otherwise I highly suspect that we are dealing with either conversion or malingering." He was seen by cardiology - underwent stress test which was negative for any ischemia or infarct. He was evaluated by PT OT and recommend rehab however he has not been accepted to any facility. He agreed to home health PT OT- social service set up with [facility]- Social service also assisting with setting patient up with food stamps and assistance with electricity. He is hemodynamically stable His blood sugar is elevated however this is baseline - he is noncpmpliant and will need to follow up with PCP. He will need to follow up with neuro as outpatient. He verbalizes understanding Discharge discussed with: patient - Time Spent with Patient Total time spent providing and/or coordinating discharge services: - Discharge Medications Home Medications: Acetaminophen/Butalbital/Caffe [Fioricet] 1 tab PO Q6HR PRN 09/14/17 [History] BuPROPion XL (24 HR) [Wellbutrin Xl] 150 mg PO QAM 09/14/17 [History] Divalproex (12 HR) [Depakote (12 HR)] 250 mg PO QPM 09/14/17 [History] Divalproex (12 HR) [Depakote (12 HR)] 500 mg PO BID 09/14/17 [History] Propranolol [Inderal] 10 mg PO BID 09/14/17 [History] Trazodone HCl 150 - 300 mg PO HS 09/14/17 [History] Allergies/Adverse Reactions: 3 Allergy/AdvReac Type Severity Reaction Status Date / Time potassium Allergy Anaphylaxis Verified 09/14/17 20:53 Penicillins AdvReac Hives Verified 09/14/17 20:53 sodium bicarb Allergy Severe Anaphylaxis Uncoded 03/05/17 13:21 sodium chloride Allergy Severe Anaphylaxis Uncoded 03/05/17 13:21 sodium sulfide Allergy Severe Anaphylaxis Uncoded 03/05/17 13:21 pcn Allergy Mild Hives Uncoded 03/05/17 13:21 peanuts Allergy Unknown Anaphylaxis Uncoded 03/05/17 13:21 Ipratropium [place] Allergy Anaphylaxis Uncoded 03/05/17 13:21 Date of admission: 09/17/17 12:31 Primary care physician: Harmony Mcdaniel MD Discharging clinician: Alicia Watkins Anticipated date of discharge: 09/17/17 - Constitutional Vitals: Temp Pulse Resp BP Pulse Ox 98.8 F 91 17 119/80 95 09/17/17 15:45 09/17/17 15:45 09/17/17 15:45 09/17/17 15:45 09/17/17 15:45 General appearance: Present: A&O X 3, obese - Patient Status Disposition: Home Health Service Condition: Fair - Discharge Instructions Follow Up With: Harmony Mcdaniel MD [Primary Care Provider] - 09/21/17 3:00 pm Garret Rojas DO [Partnered Physician] - Additional Instructions: follow up with neurology - Diet and Activity Activity: as per physical therapy Diet: diabetic diet
[2017-09-17 18:56] VITALS: BP 119/79
--- NOTE | 2017-09-17 19:12 | Physician Discharge Referral ---
Home Health/Hosp Referral Info Transfer to: Home Health Attending Provider: Alicia Watkins Provider in Charge Post Discharge: PCP - Diagnosis (1) Paresthesia of lower extremity Priority: Primary Status: Acute (2) Chest pain Status: Acute (3) Monocular diplopia of both eyes Priority: Primary Status: Acute (4) Syncope Priority: Primary Status: Acute (5) COPD (chronic obstructive pulmonary disease) Priority: Secondary Status: Chronic (6) Diabetes mellitus Priority: Secondary Status: Chronic - Respiratory Orders Smoking Cessation: Smoking cessation has been advised. For more information, call the [place] Tobacco Quit Line at 3-215-VWGR-NOW. - Diet/Nutrition Diet/Nutrition Orders: No Concentrated Sweets - Activity Activity Orders: Ambulate - Services Needed Following services are medically necessary services: Physical Therapy, Occupational Therapy - Transfer Medications Home Medications: Acetaminophen/Butalbital/Caffe [Fioricet] 1 tab PO Q6HR PRN 09/14/17 [History] BuPROPion XL (24 HR) [Wellbutrin Xl] 150 mg PO QAM 09/14/17 [History] Divalproex (12 HR) [Depakote (12 HR)] 250 mg PO QPM 09/14/17 [History] Divalproex (12 HR) [Depakote (12 HR)] 500 mg PO BID 09/14/17 [History] Propranolol [Inderal] 10 mg PO BID 09/14/17 [History] Trazodone HCl 150 - 300 mg PO HS 09/14/17 [History] Allergies/Adverse Reactions: 3 Allergy/AdvReac Type Severity Reaction Status Date / Time potassium Allergy Anaphylaxis Verified 09/14/17 20:53 Penicillins AdvReac Hives Verified 09/14/17 20:53 sodium bicarb Allergy Severe Anaphylaxis Uncoded 03/05/17 13:21 sodium chloride Allergy Severe Anaphylaxis Uncoded 03/05/17 13:21 sodium sulfide Allergy Severe Anaphylaxis Uncoded 03/05/17 13:21 pcn Allergy Mild Hives Uncoded 03/05/17 13:21 peanuts Allergy Unknown Anaphylaxis Uncoded 03/05/17 13:21 Ipratropium [place] Allergy Anaphylaxis Uncoded 03/05/17 13:21 Certification: Further, I certify that my clinical findings support that this patient is homebound (i.e. absences from home require considerable and taxing effort and are for medical reasons or rastafarian services or infrequently or short duration when for other reasons) because: Homebound Reason: Patient requires assistance of a person or device to safely leave home Attestation: My signature below is to certify that this patient is under my care and that I, or nurse practitioner, or a physician's records assistant working with me, has a face-to -face encounter with this patient.
[2017-09-17] MEDS: Divalproex (12 HR) 250 MG TABLET PO SCH (20:29)
[2017-09-17] MEDS: Insulin DETEMIR 100 UNIT/ML X5UNITS SQ SCH (20:30)
[2017-09-17] MEDS: traZODone 50 MG TABLET PO SCH (20:30)
== END 2017-09-17 21:01 | disposition home health service (06) | DRG 639 ==
LOC: 3BNU 16:23 → EMEROO 16:23 → 3BNU 20:54
PROVIDERS: ADMIT Internal Medicine; ATTEND Internal Medicine

== ENCOUNTER 2017-10-14 17:56 | Inpatient (IN) ==
--- NOTE | 2017-10-14 18:24 | Emergency Department Note ---
Disposition Clinical Impression: Suicidal ideations Disposition: Admitted As Inpatient Condition: Good General Adult HPI - General Chief complaint: ED Psychiatric Symptoms Stated complaint: SI/psych eval Time Seen by Provider: 10/14/17 18:11 Source: patient Limitations: no limitations Nursing Notes Reviewed: Yes Vital Signs Reviewed: Yes - History of Present Illness HPI Narrative: Patient with past medical history of diabetes on insulin, hypertension, hypercholesterol, chart was COPD but he has not required any inhalers for quite some time. Patient states History of anxiety depression and bipolar. Not sure what medications he is on. Presenting today for decreased appetite as well as decreased sleep and thoughts of self-harm with suicidal intent. Patient has not had any visual or auditory hallucinations. He denies other review of systems. Pain Scale: 7 - Related Data Home Medications Medication Instructions Recorded Confirmed Divalproex (12 HR) [Depakote (12 250 mg PO QAM 09/14/17 10/14/17 HR)] Divalproex (12 HR) [Depakote (12 500 mg PO HS 09/14/17 10/14/17 HR)] Trazodone HCl 150 - 300 mg PO HS 09/14/17 10/14/17 Allergies Allergy/AdvReac Type Severity Reaction Status Date / Time potassium Allergy Anaphylaxis Verified 10/14/17 20:47 Penicillins AdvReac Hives Verified 10/14/17 20:47 sodium bicarb Allergy Severe Anaphylaxis Uncoded 10/14/17 20:47 sodium chloride Allergy Severe Anaphylaxis Uncoded 10/14/17 20:47 sodium sulfide Allergy Severe Anaphylaxis Uncoded 10/14/17 20:47 peanuts Allergy Unknown Anaphylaxis Uncoded 10/14/17 20:47 Ipratropium [place] Allergy Anaphylaxis Uncoded 10/14/17 20:47 Review of Systems: CONSTITUTIONAL: No weight loss, fever, chills, weakness or fatigue. HEENT: Eyes: No visual changes. Ears, Nose, Throat: No hearing loss, difficulty talking or unable to swallow. SKIN: No rash or itching. CARDIOVASCULAR: No chest pain, chest pressure or chest discomfort. No palpitations or edema. RESPIRATORY: No shortness of breath, cough or sputum. GASTROINTESTINAL: No anorexia, nausea, vomiting or diarrhea. No abdominal pain or blood. GENITOURINARY: No burning on urination or hematuria. NEUROLOGICAL: No headache, dizziness, syncope, paralysis, ataxia, numbness or tingling in the extremities. No change in bowel or bladder control. MUSCULOSKELETAL: Chronic left hip and right shoulder pain Psych: Thoughts of self-harm or suicidal intent; decreased appetite as well as sleep. Past Medical History - Past Medical History Medical history: Reports: arthritis, asthma, COPD, diabetes, hyperlipidemia, hypertension Surgical history: Reports: cholecystectomy Psychiatric history: Reports: anxiety, depression, prior suicide attempt, previous psychiatric hospitalization - Social History Smoking Status: Former smoker Smokeless Tobacco Status: No Alcohol use: Reports: occasionally Drug use: Reports: none Physical Exam General: Well appearing, nontoxic, no acute distress Head: Normocephalic Atraumatic Eyes: PERRL, EOMI ENT: Airway patent, no stridor Neck: supple, no meningismus Chest: Lungs clear to auscultation bilateral Cardiac: Regular rate and rhythm, no murmurs, rubs or gallops Abdomen: soft, nontender, nondistended; no guarding, rebound, or tenderness to percussion Skin: No rash, normal skin tone Neuro: Alert and Oriented to person, place, and time; No focal deficit, Psych: Flat affect - General Limitations: no limitations General appearance: alert Course Course Narrative: Patient medically cleared. Psych clearance labs ordered. Vital Signs Temperature 98.3 F 10/14/17 18:05 Pulse Rate 92 10/14/17 18:05 Respiratory Rate 20 10/14/17 18:05 Blood Pressure 129/90 10/14/17 18:05 O2 Sat by Pulse Oximetry 95 10/14/17 18:05 Temperature 98.3 F 10/14/17 18:05 Pulse Rate 92 10/14/17 18:05 Respiratory Rate 20 10/14/17 18:05 Blood Pressure 129/90 10/14/17 18:05 O2 Sat by Pulse Oximetry 95 10/14/17 18:05 Oxygen Delivery Oxygen Delivery Room Air Medical Decision Making - Lab Data Result diagrams: 10/14/17 18:20 10/14/17 18:20 Lab Results 10/14/17 10/14/17 10/14/17 Range/Units 18:20 18:20 18:39 WBC 9.9 (4.3-11.1) K/mcL RBC 5.91 H (4.19-5.50) M/mcL Hgb 16.6 (12.9-16.9) g/dL Hct 49.2 (37.5-50.1) % MCV 83.2 (83.0-100.0) fL MCH 28.1 (28.0-33.3) pg MCHC 33.7 (31.6-35.5) g/dL RDW 13.2 (11.5-14.5) % Plt Count 235 (140-400) K/mcL MPV 10.4 (9.4-12.4) fL Immature Gran % 0.4 (0-4) % Seg Neutrophils % 56.9 % Lymphocytes % 30.2 % Monocytes % 8.4 % Eosinophils % 2.8 % Basophils % 1.3 % Neutrophils # 5.6 (1.6-8.9) K/mcL Lymphocytes # 3.0 (0.6-4.6) K/mcL Monocytes # 0.8 (0.0-1.3) K/mcL Eosinophils # 0.3 (0.0-0.6) K/mcL Basophils # 0.1 (0.0-0.2) K/mcL Sodium 136 (136-145) mEq/L Potassium 3.9 (3.5-5.1) mEq/L Chloride 102 (98-107) mEq/L Carbon Dioxide 27 (23-29) mEq/L BUN 7 (6-20) mg/dL Creatinine 0.68 L (0.70-1.30) mg/dL Est GFR ( Amer) > 60 (> 60) Est GFR (Non-Af Amer) > 60 (> 60) BUN/Creatinine Ratio 10 (6-26) Glucose 307 H (70-105) mg/dL Calculated Osmolality 292 (280-300) Calcium 9.4 (8.6-10.3) mg/dL Total Bilirubin 0.4 (0.3-1.0) mg/dL AST 17 (13-39) Units/L ALT 24 (7-52) Units/L Alkaline Phosphatase 77 (34-104) Units/L Serum Total Protein 7.5 (6.4-8.9) g/dL Albumin 4.0 (3.5-5.7) g/dL Globulin 3.5 (2.4-3.5) g/dL Albumin/Globulin Ratio 1.1 (1.1-2.2) TSH 0.834 (0.340-5.600) mcIU/mL Urine Color Yellow (Yellow) Urine Clarity Clear (Clear) Urine pH 6.5 (5.0-8.0) pH Units Ur Specific [place] > 1.030 H (1.010-1.025) Urine Protein Negative (Neg-Trace) mg/dL Urine Glucose (UA) >=1000 H (Normal) mg/dL Urine Ketones Trace H (Negative) mg/dL Urine Blood Negative (Negative) Urine Nitrite Negative (Negative) Urine Bilirubin Negative (Negative) Urine Urobilinogen Normal (Normal) mg/dL Ur Leukocyte Esterase Negative (Negative) Ur Culture Indicated? NO (NO) Salicylates < 2.5 L (15.0-30.0) mg/dL Urine Opiates Screen (Hrppgm=826) ng/mL Acetaminophen < 10 L (10-20) mcg/mL Ur Barbiturates Screen (Grluax=933) ng/mL Ur Phencyclidine Scrn (Cutoff=25) ng/mL Ur Amphetamines Screen (Cyfmdq=4851) ng/mL U Benzodiazepines Scrn (Bqbjme=988) ng/mL Urine Cocaine Screen (Cutoff= 300) ng/mL U Marijuana (THC) Screen (Cutoff = 50) ng/mL Ethyl Alcohol < 10 (Less than 10) mg/dL 10/14/17 Range/Units 18:39 WBC (4.3-11.1) K/mcL RBC (4.19-5.50) M/mcL Hgb (12.9-16.9) g/dL Hct (37.5-50.1) % MCV (83.0-100.0) fL MCH (28.0-33.3) pg MCHC (31.6-35.5) g/dL RDW (11.5-14.5) % Plt Count (140-400) K/mcL MPV (9.4-12.4) fL Immature Gran % (0-4) % Seg Neutrophils % % Lymphocytes % % Monocytes % % Eosinophils % % Basophils % % Neutrophils # (1.6-8.9) K/mcL Lymphocytes # (0.6-4.6) K/mcL Monocytes # (0.0-1.3) K/mcL Eosinophils # (0.0-0.6) K/mcL Basophils # (0.0-0.2) K/mcL Sodium (136-145) mEq/L Potassium (3.5-5.1) mEq/L Chloride (98-107) mEq/L Carbon Dioxide (23-29) mEq/L BUN (6-20) mg/dL Creatinine (0.70-1.30) mg/dL Est GFR ( Amer) (> 60) Est GFR (Non-Af Amer) (> 60) BUN/Creatinine Ratio (6-26) Glucose (70-105) mg/dL Calculated Osmolality (280-300) Calcium (8.6-10.3) mg/dL Total Bilirubin (0.3-1.0) mg/dL AST (13-39) Units/L ALT (7-52) Units/L Alkaline Phosphatase (34-104) Units/L Serum Total Protein (6.4-8.9) g/dL Albumin (3.5-5.7) g/dL Globulin (2.4-3.5) g/dL Albumin/Globulin Ratio (1.1-2.2) TSH (0.340-5.600) mcIU/mL Urine Color (Yellow) Urine Clarity (Clear) Urine pH (5.0-8.0) pH Units Ur Specific [place] (1.010-1.025) Urine Protein (Neg-Trace) mg/dL Urine Glucose (UA) (Normal) mg/dL Urine Ketones (Negative) mg/dL Urine Blood (Negative) Urine Nitrite (Negative) Urine Bilirubin (Negative) Urine Urobilinogen (Normal) mg/dL Ur Leukocyte Esterase (Negative) Ur Culture Indicated? (NO) Salicylates (15.0-30.0) mg/dL Urine Opiates Screen Negative (Iikxar=302) ng/mL Acetaminophen (10-20) mcg/mL Ur Barbiturates Screen Negative (Imoohk=380) ng/mL Ur Phencyclidine Scrn Negative (Cutoff=25) ng/mL Ur Amphetamines Screen Negative (Elwtas=7647) ng/mL U Benzodiazepines Scrn Negative (Hzzplh=974) ng/mL Urine Cocaine Screen Negative (Cutoff= 300) ng/mL U Marijuana (THC) Screen Negative (Cutoff = 50) ng/mL Ethyl Alcohol (Less than 10) mg/dL
[2017-10-14 18:32] LABS: Basophils # 0.1 K/mcL (0.0-0.2); Basophils % 1.3 %; Eosinophils # 0.3 K/mcL (0.0-0.6); Eosinophils % 2.8 %; Hematocrit 49.2 % (37.5-50.1); Hemoglobin 16.6 g/dL (12.9-16.9); Immature Granulocytes % 0.4 % (0-4); Lymphocytes % 30.2 %; Mean Corpuscular HGB Conc 33.7 g/dL (31.6-35.5); Mean Corpuscular Hemoglobin 28.1 pg (28.0-33.3); Mean Corpuscular Volume 83.2 fL (83.0-100.0); Mean Platelet Volume 10.4 fL (9.4-12.4); Monocytes # 0.8 K/mcL (0.0-1.3); Monocytes % 8.4 %; Neutrophils # 5.6 K/mcL (1.6-8.9); Platelet Count 235 K/mcL (140-400); Red Blood Count 5.91 M/mcL (4.19-5.50); Red Cell Distribution Width 13.2 % (11.5-14.5); Segmented Neutrophils % 56.9 %
--- NOTE | 2017-10-14 18:41 | Emergency Department Note ---
Disposition Clinical Impression: Suicidal ideations Disposition: Still a Patient Forms: ED Satisfaction Letter General Adult HPI - General Chief complaint: ED Psychiatric Symptoms Stated complaint: SI/psych eval Time Seen by Provider: 10/14/17 18:11 Source: patient Limitations: no limitations - History of Present Illness Pain Scale: 7 - Related Data Home Medications Medication Instructions Recorded Confirmed Acetaminophen/Butalbital/Caffe 1 tab PO Q6HR PRN 09/14/17 09/14/17 [Fioricet] BuPROPion XL (24 HR) [Wellbutrin 150 mg PO QAM 09/14/17 09/14/17 Xl] Divalproex (12 HR) [Depakote (12 250 mg PO QPM 09/14/17 09/14/17 HR)] Divalproex (12 HR) [Depakote (12 500 mg PO BID 09/14/17 09/14/17 HR)] Propranolol [Inderal] 10 mg PO BID 09/14/17 09/14/17 Trazodone HCl 150 - 300 mg PO HS 09/14/17 09/14/17 Allergies Allergy/AdvReac Type Severity Reaction Status Date / Time potassium Allergy Anaphylaxis Verified 10/14/17 18:04 Penicillins AdvReac Hives Verified 10/14/17 18:04 sodium bicarb Allergy Severe Anaphylaxis Uncoded 10/14/17 18:04 sodium chloride Allergy Severe Anaphylaxis Uncoded 10/14/17 18:04 sodium sulfide Allergy Severe Anaphylaxis Uncoded 10/14/17 18:04 peanuts Allergy Unknown Anaphylaxis Uncoded 10/14/17 18:04 Ipratropium [place] Allergy Anaphylaxis Uncoded 10/14/17 18:04 Past Medical History - Past Medical History Medical history: Reports: arthritis, asthma, COPD, diabetes, hyperlipidemia, hypertension Surgical history: Reports: cholecystectomy Psychiatric history: Reports: anxiety, depression, prior suicide attempt, previous psychiatric hospitalization - Social History Smoking Status: Former smoker Smokeless Tobacco Status: No Alcohol use: Reports: occasionally Drug use: Reports: none Physical Exam - General Limitations: no limitations General appearance: alert Course Vital Signs Temperature 98.3 F 10/14/17 18:05 Pulse Rate 92 10/14/17 18:05 Respiratory Rate 20 10/14/17 18:05 Blood Pressure 129/90 10/14/17 18:05 O2 Sat by Pulse Oximetry 95 10/14/17 18:05 Temperature 98.3 F 10/14/17 18:05 Pulse Rate 92 10/14/17 18:05 Respiratory Rate 20 10/14/17 18:05 Blood Pressure 129/90 10/14/17 18:05 O2 Sat by Pulse Oximetry 95 10/14/17 18:05 Oxygen Delivery Oxygen Delivery Room Air Medical Decision Making - Lab Data Result diagrams: 10/14/17 18:20 Lab Results 10/14/17 Range/Units 18:20 WBC 9.9 (4.3-11.1) K/mcL RBC 5.91 H (4.19-5.50) M/mcL Hgb 16.6 (12.9-16.9) g/dL Hct 49.2 (37.5-50.1) % MCV 83.2 (83.0-100.0) fL MCH 28.1 (28.0-33.3) pg MCHC 33.7 (31.6-35.5) g/dL RDW 13.2 (11.5-14.5) % Plt Count 235 (140-400) K/mcL MPV 10.4 (9.4-12.4) fL Immature Gran % 0.4 (0-4) % Seg Neutrophils % 56.9 % Lymphocytes % 30.2 % Monocytes % 8.4 % Eosinophils % 2.8 % Basophils % 1.3 % Neutrophils # 5.6 (1.6-8.9) K/mcL Lymphocytes # 3.0 (0.6-4.6) K/mcL Monocytes # 0.8 (0.0-1.3) K/mcL Eosinophils # 0.3 (0.0-0.6) K/mcL Basophils # 0.1 (0.0-0.2) K/mcL Attestation Statement - Attestation Attestation: I examined this patient and my medical decision-making was reviewed with the Resident Physician. I agree with the documented findings, disposition and treatment plan as described except to the extent set forth below. 37 year old male prsents to the ED with complaints of SI without plan and has had pysch admissions in the past. His depression is worsening. He ismedically cleared and we have ordered pysch labs and then consult 1A
[2017-10-14 18:55] LABS: Acetaminophen < 10 mcg/mL (10-20); Alanine Aminotransferase 24 Units/L (7-52); Albumin/Globulin Ratio 1.1 (1.1-2.2); Alkaline Phosphatase 77 Units/L (34-104); Aspartate Amino Transferase 17 Units/L (13-39); BUN/Creatinine Ratio 10 (6-26); Bilirubin,Total 0.4 mg/dL (0.3-1.0); Blood Urea Nitrogen 7 mg/dL (6-20); Calcium 9.4 mg/dL (8.6-10.3); Carbon Dioxide 27 mEq/L (23-29); Chloride 102 mEq/L (98-107); Ethanol < 10 mg/dL (Less than 10); Globulin 3.5 g/dL (2.4-3.5); Glucose 307 mg/dL (70-105); Osmolality,Calculated 292 (280-300); Potassium 3.9 mEq/L (3.5-5.1); Salicylate < 2.5 mg/dL (15.0-30.0); Sodium 136 mEq/L (136-145); Total Protein 7.5 g/dL (6.4-8.9); eGFR For African Americans > 60 (> 60); eGFR For Non-African Americans > 60 (> 60)
[2017-10-14 18:56] LABS: Bilirubin,Urine Negative (Negative); Blood,Urine Negative (Negative); Clarity,Urine Clear (Clear); Color,Urine Yellow (Yellow); Glucose,Urine (UA) >=1000 mg/dL (Normal); Ketones,Urine Trace mg/dL (Negative); Leukocyte Esterase,Urine Negative (Negative); Nitrite,Urine Negative (Negative); PH,Urine 6.5 pH Units (5.0-8.0); Protein,Urine Negative (Neg-Trace); Specific Gravity,Urine > 1.030 (1.010-1.025); Urobilinogen,Urine Normal (Normal)
[2017-10-14 19:05] LABS: Amphetamine Screen,Urine Negative ng/mL (Cutoff=1000); Barbiturate Screen,Urine Negative ng/mL (Cutoff=200); Benzodiazepines Screen,Urine Negative ng/mL (Cutoff=200); Cannabinoid Screen,Urine Negative ng/mL (Cutoff = 50); Cocaine Screen,Urine Negative ng/mL (Cutoff= 300); Opiate Screen,Urine Negative ng/mL (Cutoff=300); Phencyclidine Screen,Urine Negative ng/mL (Cutoff=25)
[2017-10-14 19:07] LABS: Thyroid Stimulating Hormone 0.834 mcIU/mL (0.340-5.600)
[2017-10-14] MEDS ORDERED: Haloperidol Lactate 5 MG/ML VIAL IM PRN (21:33)
[2017-10-14] MEDS ORDERED: Mag Hydrox/Al Hydrox/Simeth 30 ML UDC PO PRN (21:33)
[2017-10-14] MEDS ORDERED: *HR* LORazepam 2 MG/ML VIAL IM PRN (21:33)
[2017-10-14] MEDS ORDERED: *HR* LORazepam 1 MG TABLET PO PRN (21:33)
[2017-10-14] MEDS ORDERED: traZODone 50 MG TABLET PO PRN (21:33)
[2017-10-14] MEDS ORDERED: MOM Conc 10 ML UD.LIQ PO PRN (21:33)
[2017-10-15] MEDS: hydrOXYzine pamoate 25 MG CAPSULE PO PRN (04:49)
[2017-10-15] MEDS: Ibuprofen 400 MG TABLET PO PRN ×2 (04:49→16:13)
--- NOTE | 2017-10-15 16:18 | Psychiatry History & Physical ---
Date of Encounter: 10/15/17 Time of Encounter: 16:00 History of Present Illness Patient Stated Chief Complaint: I was feeling like killing self but I do not feel like that would be a good Medicare Admission Attestation: For traditional Medicare patients the provided hospital inpatient services are reasonable and necessary and in the case of services not specified as inpatient -only under 42 CFR 419.22 (n), that they are appropriately provided as inpatient services in accordance 42 CFR 412.3. For Critical Access Hospital the patient may reasonably be expected to be discharged or transferred to a hospital within 96 hours after admission to the Critical Access Hospital. Admitted From: Emergency Dept Plans for Post Hospital Care: Home History of Present Illness: Mr. Villeda is a 37 year old male The patient is a 37-year-old engaged male. The patient has a long history of psychiatric hospitalization and I will try to summarize here. Chief complaint: Was that the patient presented with suicidal ideation he was nonspecific but had multiple means at his disposal. The patient has a history of suicidal ideation and intent. History of present illness. The patient reports that he was in his usual state of health and mood and had been going through high school and played sports and had done well until about age 18. At that point the patient started to develop a psychiatric illness that has been categorized to several things but appears to be recurrent episodes of major depressive disorder. He would often present to psychiatric hospital with suicidal ideation or intent to kill himself in the past he cut himself and in the past he threatened overdose. The patient was most recently hospitalized at this facility in late February 2017. He was able to move to a new home where he got a month to be his payee. The patient receives $1200 per month and this is in part due to his own SSDI benefits and survivor benefits from his father's . The patient now resents with suicidal ideation and recognizes some thoughts that he had. The patient has had low mood and disturbances her Rosie the most notable finding for this patient is the multiple hospitalizations. These include [facility], [place], [facility], [facility] and [facility]. These are rather frequent hospitalizations into numerous to count from age 18 to age 37. The patient identifies the of his grandfather in 2011 as the primary precipitant of the most recent episodes. The patient's past medical history is significant for obesity with insulin- dependent diabetes. The patient's treatment had been with met metformin but he could not tolerate the patient has multiple allergies. He is no longer taking Prilosec Topamax gabapentin. He is on Lantus 30 mg in the morning 60 mg at night and a vitamin D. Kallie's on an unknown dose of lisinopril. He is also on metoprolol The patient has not been since. The patient had difficulty with reading. This occurred could not read above a kindergarten or first grade level. This is limited his ability to work. The patient reports that Ambien causes too much sedation and that Seroquel worsening The DSM-5 criteria. . Were administered and the patient has 8 of the 9 borderline personality disorder criteria. The family history is significant for mother with depression. The mother had alcohol but has given up. There is no family history of suicide 's social history the patient was raised in [facility]. At age 13 he went to live with his grandparents. His grandfather was an important figure in his life. In 2003 the patient was convicted of gross sexual imposition. The girl was 17 in the case. He was a registered offender until 2013. He had no other violations and helped with others in that program. He is no longer reporting offender and stable Past Med Surg Social Fam HX - Past Medical History Medical history: arthritis, asthma, COPD, diabetes, hyperlipidemia, hypertension - Past Psychiatric History Psychiatric history: Reports: depression, prior suicide attempt, previous psychiatric hospitalization Family psychiatric history: Yes Family History of Suicide: None - Past Surgical History Surgical History: cholecystectomy - Social History Smoking Status: Former smoker Smokeless Tobacco Status: No Alcohol use: occasionally Drug use: none - Family History Father Family Member Ethnicity: Non- Living Status: Hx Family Cardiac Disorders: Yes (Stroke, [place], HLD, HTN) Mother Family Member Ethnicity: Non- Living Status: Still Living Hx Family Cardiac Disorders: Yes (TIA, HLD, HTN) Hx Family Endocrine Disorder: Yes (DM) Brother Family Member Ethnicity: Non- Living Status: Still Living Hx Family Cardiac Disorders: Yes (HLD, HTN) Sister Family Member Ethnicity: Non- Living Status: Still Living Hx Family Cardiac Disorders: Yes (HLD, HTN) Hx Family Endocrine Disorder: Yes (DM) Medications & Allergies RX: Divalproex (12 HR) [Depakote (12 HR)] 250 mg PO QAM 09/14/17 [History] RX: Divalproex (12 HR) [Depakote (12 HR)] 500 mg PO HS 09/14/17 [History] RX: Trazodone HCl 150 - 300 mg PO HS 09/14/17 [History] 3 Allergy/AdvReac Type Severity Reaction Status Date / Time potassium Allergy Anaphylaxis Verified 10/14/17 20:47 Penicillins AdvReac Hives Verified 10/14/17 20:47 sodium bicarb Allergy Severe Anaphylaxis Uncoded 10/14/17 20:47 sodium chloride Allergy Severe Anaphylaxis Uncoded 10/14/17 20:47 sodium sulfide Allergy Severe Anaphylaxis Uncoded 10/14/17 20:47 peanuts Allergy Unknown Anaphylaxis Uncoded 10/14/17 20:47 Ipratropium [place] Allergy Anaphylaxis Uncoded 10/14/17 20:47 Review of Systems Constitutional: Reports: weight change Eyes: Reports: vision change Cardiovascular: Denies: chest pain, palpitations, dyspnea on exertion Respiratory: Denies: cough, dyspnea, wheezes Gastrointestinal: Denies: abdominal pain, nausea, vomiting, diarrhea, constipation Genitourinary male: Denies: urgency, dysuria, frequency, genital lesions Musculoskeletal: Denies: joint swelling, joint pain Integumentary: Denies: rash, lesions, pruritus Neurological: Reports: headache Psychiatric: Reports: depression, abnormal sleep pattern, suicidal ideation, mood swings Endocrine: Denies: fatigue, heat or cold intolerance Hematologic/Lymphatic: Denies: easy bruising, lymphadenopathy Allergic/Immunologic: Denies: urticaria, itchy eyes Exam - HEENT Head exam IM: Present: atraumatic Eye exam IM: Present: EOMI, normal appearance, PERRL ENT exam IM: Present: normal exam - Neurological Neurological exam: Present: CN II-XII intact - Respiratory Respiratory exam IM: Present: CTAB - GI/Abdominal GI/Abdominal exam IM: Present: normal bowel sounds, soft. Absent: tenderness - Extremities Extremities exam IM: Present: full ROM - Skin Skin exam IM: Present: dry, warm - Additional Information Additional Information: cross bite, convergent gaze - Constitutional Vitals: Temp Pulse Resp BP Pulse Ox 98.4 F 83 16 114/75 95 10/15/17 09:00 10/15/17 09:00 10/15/17 09:00 10/15/17 09:00 10/14/17 18:05 General appearance: age & developmentally appropriate, well-groomed, well- nourished - Musculoskeletal Gait: normal Station: relaxed Strength & Tone: normal for patient - Psychiatric Patient Orientation: Yes Person, Yes Time, Yes Place Level of alertness: Alert Behavior: calm, cooperative Psychomotor activity: Normal Eye Contact: Maintains Eye Contact Mood Description: Depressed Affect description: congruent with mood Speech Volume: Normal Speech pattern: normal rate, normal rhythm, normal tone, fluent, spontaneous Language & Vocabulary: grade school level Thought Process: Linear, Goal Oriented Thought Content: Yes Suicidal ideation, No Homicidal ideation, No Overt delusions Perceptual Disturbances: No Auditory hallucinations, No Visual hallucinations Attention Span Ability: Capable of Focused Attention Memory Description: Grossly Intact Fund of knowledge: Yes aware of current events Judgment: Limited Insight: Minimal Results - Labs Labs: Laboratory Last Values WBC 9.9 K/mcL (4.3-11.1) 10/14/17 18:20 RBC 5.91 M/mcL (4.19-5.50) H 10/14/17 18:20 Hgb 16.6 g/dL (12.9-16.9) 10/14/17 18:20 Hct 49.2 % (37.5-50.1) 10/14/17 18:20 MCV 83.2 fL (83.0-100.0) 10/14/17 18:20 MCH 28.1 pg (28.0-33.3) 10/14/17 18:20 MCHC 33.7 g/dL (31.6-35.5) 10/14/17 18:20 RDW 13.2 % (11.5-14.5) 10/14/17 18:20 Plt Count 235 K/mcL (140-400) 10/14/17 18:20 MPV 10.4 fL (9.4-12.4) 10/14/17 18:20 Immature Gran % 0.4 % (0-4) 10/14/17 18:20 Seg Neutrophils % 56.9 % 10/14/17 18:20 Lymphocytes % 30.2 % 10/14/17 18:20 Monocytes % 8.4 % 10/14/17 18:20 Eosinophils % 2.8 % 10/14/17 18:20 Basophils % 1.3 % 10/14/17 18:20 Neutrophils # 5.6 K/mcL (1.6-8.9) 10/14/17 18:20 Lymphocytes # 3.0 K/mcL (0.6-4.6) 10/14/17 18:20 Monocytes # 0.8 K/mcL (0.0-1.3) 10/14/17 18:20 Eosinophils # 0.3 K/mcL (0.0-0.6) 10/14/17 18:20 Basophils # 0.1 K/mcL (0.0-0.2) 10/14/17 18:20 Sodium 136 mEq/L (136-145) 10/14/17 18:20 Potassium 3.9 mEq/L (3.5-5.1) 10/14/17 18:20 Chloride 102 mEq/L (98-107) 10/14/17 18:20 Carbon Dioxide 27 mEq/L (23-29) 10/14/17 18:20 BUN 7 mg/dL (6-20) 10/14/17 18:20 Creatinine 0.68 mg/dL (0.70-1.30) L 10/14/17 18:20 Est GFR ( Amer) > 60 (> 60) 10/14/17 18:20 Est GFR (Non-Af Amer) > 60 (> 60) 10/14/17 18:20 BUN/Creatinine Ratio 10 (6-26) 10/14/17 18:20 Glucose 307 mg/dL (70-105) H 10/14/17 18:20 Calculated Osmolality 292 (280-300) 10/14/17 18:20 Calcium 9.4 mg/dL (8.6-10.3) 10/14/17 18:20 Total Bilirubin 0.4 mg/dL (0.3-1.0) 10/14/17 18:20 AST 17 Units/L (13-39) 10/14/17 18:20 ALT 24 Units/L (7-52) 10/14/17 18:20 Alkaline Phosphatase 77 Units/L (34-104) 10/14/17 18:20 Serum Total Protein 7.5 g/dL (6.4-8.9) 10/14/17 18:20 Albumin 4.0 g/dL (3.5-5.7) 10/14/17 18:20 Globulin 3.5 g/dL (2.4-3.5) 10/14/17 18:20 Albumin/Globulin Ratio 1.1 (1.1-2.2) 10/14/17 18:20 TSH 0.834 mcIU/mL (0.340-5.600) 10/14/17 18:20 Urine Color Yellow (Yellow) 10/14/17 18:39 Urine Clarity Clear (Clear) 10/14/17 18:39 Urine pH 6.5 pH Units (5.0-8.0) 10/14/17 18:39 Ur Specific [place] > 1.030 (1.010-1.025) H 10/14/17 18:39 Urine Protein Negative mg/dL (Neg-Trace) 10/14/17 18:39 Urine Glucose (UA) >=1000 mg/dL (Normal) H 10/14/17 18:39 Urine Ketones Trace mg/dL (Negative) H 10/14/17 18:39 Urine Blood Negative (Negative) 10/14/17 18:39 Urine Nitrite Negative (Negative) 10/14/17 18:39 Urine Bilirubin Negative (Negative) 10/14/17 18:39 Urine Urobilinogen Normal mg/dL (Normal) 10/14/17 18:39 Ur Leukocyte Esterase Negative (Negative) 10/14/17 18:39 Ur Culture Indicated? NO (NO) 10/14/17 18:39 Salicylates < 2.5 mg/dL (15.0-30.0) L 10/14/17 18:20 Urine Opiates Screen Negative ng/mL (Jxjqeo=620) 10/14/17 18:39 Acetaminophen < 10 mcg/mL (10-20) L 10/14/17 18:20 Ur Barbiturates Screen Negative ng/mL (Sftkpi=247) 10/14/17 18:39 Ur Phencyclidine Scrn Negative ng/mL (Cutoff=25) 10/14/17 18:39 Ur Amphetamines Screen Negative ng/mL (Ungbvp=8989) 10/14/17 18:39 U Benzodiazepines Scrn Negative ng/mL (Modhep=082) 10/14/17 18:39 Urine Cocaine Screen Negative ng/mL (Cutoff= 300) 10/14/17 18:39 U Marijuana (THC) Screen Negative ng/mL (Cutoff = 50) 10/14/17 18:39 Ethyl Alcohol < 10 mg/dL (Less than 10) 10/14/17 18:20 Assessment and Plan (1) Major depressive disorder, recurrent severe without psychotic features Current visit: Yes Status: Acute Plan: Admit inpatient for safety and stabilization, Close observation, Suicide Precautions per unit protocol, Encourage participation in unit milieu, Monitor sleep, Monitor appetite Risks, benefits, side effects, alternatives discussed w/pt: Yes Patient agreeable to treatment: Yes Plans for Post Hospital Care: Home Estimated Length of Stay (Days): 5 (2) 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 Current visit: Yes Status: Chronic Plan: Admit inpatient for safety and stabilization, Monitor appetite Risks, benefits, side effects, alternatives discussed w/pt: Yes Patient agreeable to treatment: Yes Plans for Post Hospital Care: Home Estimated Length of Stay ( Days): 5 Qualifiers: 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 Qualified Code( s): E11.630 - 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; Z79.4 - USP (current) use of insulin (3) Feeling like committing suicide Current visit: Yes Status: Acute Plan: Admit inpatient for safety and stabilization, Close observation, Encourage participation in unit milieu, Secure weapons Risks, benefits, side effects, alternatives discussed w/pt: Yes Patient agreeable to treatment: Yes Plans for Post Hospital Care: Home (4) Basic learning disability, reading Current visit: Yes Status: Chronic Plan: Admit inpatient for safety and stabilization, Group Therapy, Family/ Supportive other meeting Risks, benefits, side effects, alternatives discussed w/pt: Yes Patient agreeable to treatment: Yes Plans for Post Hospital Care: Home (5) Borderline personality disorder Current visit: Yes Status: Chronic Plan: Admit inpatient for safety and stabilization, Close observation, Suicide Precautions per unit protocol, Encourage participation in unit milieu, Group Therapy, Secure weapons Risks, benefits, side effects, alternatives discussed w/pt: Yes Patient agreeable to treatment: Yes Plans for Post Hospital Care: Home
[2017-10-15] MEDS: Cyprohepatdine 4 MG TABLET PO SCH (21:02)
[2017-10-15] MEDS: ARIPiprazole 2 MG TABLET PO SCH (21:02)
[2017-10-15] MEDS: Insulin DETEMIR 100 UNIT/ML X5UNITS SQ SCH (22:08)
[2017-10-16 08:13] LABS: Basophils # 0.1 K/mcL (0.0-0.2); Basophils % 1.6 %; Eosinophils # 0.5 K/mcL (0.0-0.6); Eosinophils % 5.5 %; Hematocrit 50.3 % (37.5-50.1); Hemoglobin 17.4 g/dL (12.9-16.9); Immature Granulocytes % 0.3 % (0-4); Lymphocytes # 3.4 K/mcL (0.6-4.6); Lymphocytes % 38.2 %; Mean Corpuscular HGB Conc 34.6 g/dL (31.6-35.5); Mean Corpuscular Hemoglobin 29.1 pg (28.0-33.3); Mean Corpuscular Volume 84.3 fL (83.0-100.0); Mean Platelet Volume 10.4 fL (9.4-12.4); Monocytes # 0.9 K/mcL (0.0-1.3); Monocytes % 10.3 %; Neutrophils # 3.9 K/mcL (1.6-8.9); Platelet Count 201 K/mcL (140-400); Red Blood Count 5.97 M/mcL (4.19-5.50); Red Cell Distribution Width 12.9 % (11.5-14.5); Segmented Neutrophils % 44.1 %
[2017-10-16 08:24] LABS: Albumin 4.1 g/dL (3.5-5.7); Albumin/Globulin Ratio 1.1 (1.1-2.2); Bilirubin,Indirect 0.4 mg/dL (0.0-1.2); Bilirubin,Total 0.4 mg/dL (0.3-1.0); Globulin 3.7 g/dL (2.4-3.5); Total Protein 7.8 g/dL (6.4-8.9)
[2017-10-16] MEDS: Insulin DETEMIR 100 UNIT/ML X5UNITS SQ SCH ×2 (08:52→21:28)
[2017-10-16] MEDS: Divalproex (12 HR) 500 MG TABLET PO SCH ×2 (11:24→21:28)
--- NOTE | 2017-10-16 16:47 | Psychiatry Progress Note ---
Date of Encounter: 10/16/17 Time of Encounter: 15:00 Subjective Interval history: Identifying Data: The patient is a 37-year-old male, recently engaged, on SSI with a h/ o Bipolar disorder, h/o multiple inpatient hospitalizations, denied h/o illicit drug use, denied h/o violence/incarceration, medical h/o DM admitted to the floor on account of worsening depression with suicidal ideation. Interval Hx: Patient has been calm and cooperative on the unit with no reported behavioral issues. He reported ongoing stressors from family after he moved out of his grandmothers home He also admitted to non compliance with his medications. Depakote level on admission 17. He has been compliant with his medications on the unit and denied any side effects. He reported feeling a little better but is still depressed which he rated at 8/10. He denied any suicidal ideation. On review of his symptoms, he denied any mood/psychotic symptoms including AH/VH/HI /SI. He denied any problems wth sleep or apppetite. The importance of compliance explained to patient and he verbalized adequate understanding. I plan to increase Depakote to 50mg BID and continue Abilify 2mg daily. Review of Systems Constitutional: Denies: fever, chills, weakness, weight change Eyes: Denies: eye pain, vision change Ears, Nose, Throat: Denies: ear pain, throat pain, dental pain, hearing loss, congestion Cardiovascular: Denies: chest pain, palpitations, dyspnea on exertion Respiratory: Denies: cough, dyspnea, wheezes Gastrointestinal: Denies: abdominal pain, nausea, vomiting, diarrhea, constipation Musculoskeletal: Denies: joint swelling, joint pain Neurological: Denies: headache, weakness, numbness, memory loss Psychiatric: Reports: depression, suicidal ideation, mood swings Results - Vital Signs Vital Signs: Temp Pulse Resp BP Pulse Ox 97.8 F 77 16 120/88 95 10/16/17 09:00 10/16/17 09:00 10/16/17 09:00 10/16/17 09:00 10/14/17 18:05 - Labs Labs: Laboratory Results - last 24 hr 10/15/17 10/16/17 10/16/17 22:02 07:47 07:47 WBC 8.8 RBC 5.97 H Hgb 17.4 H Hct 50.3 H MCV 84.3 MCH 29.1 MCHC 34.6 RDW 12.9 Plt Count 201 MPV 10.4 Immature Gran % 0.3 Seg Neutrophils % 44.1 Lymphocytes % 38.2 Monocytes % 10.3 Eosinophils % 5.5 Basophils % 1.6 Neutrophils # 3.9 Lymphocytes # 3.4 Monocytes # 0.9 Eosinophils # 0.5 Basophils # 0.1 POC Glucose 378 H Total Bilirubin 0.4 Direct Bilirubin 0.0 Indirect Bilirubin 0.4 AST 20 ALT 26 Alkaline Phosphatase 78 Serum Total Protein 7.8 Albumin 4.1 Globulin 3.7 H Albumin/Globulin Ratio 1.1 Valproic Acid 7 L 10/16/17 07:51 WBC RBC Hgb Hct MCV MCH MCHC RDW Plt Count MPV Immature Gran % Seg Neutrophils % Lymphocytes % Monocytes % Eosinophils % Basophils % Neutrophils # Lymphocytes # Monocytes # Eosinophils # Basophils # POC Glucose 307 H Total Bilirubin Direct Bilirubin Indirect Bilirubin AST ALT Alkaline Phosphatase Serum Total Protein Albumin Globulin Albumin/Globulin Ratio Valproic Acid Assessment and Plan (1) Suicidal ideation Current visit: Yes Status: Acute Plan: Continue hospitalization, Close observation, Suicide Precautions per unit protocol, Encourage participation in unit milieu, Group Therapy, Monitor sleep, Monitor appetite (2) Mood disorder Current visit: No Status: Chronic (3) MDD (major depressive disorder), recurrent severe, without psychosis Current visit: Yes Status: Acute (4) Intellectual disability Current visit: No Status: Acute Consult Discharge Plan - Plan Referrals: [facility] Saira Michaels [Outside] - 10/26/17 8:30 am (The above appointment is with Lisa for outpatient mental health counseling services. You will also see Jessica Garcia for outpatient psychiatric assessment and medication management services on 11/17/2017 at 1:00 PM.) Psychiatry Exam - Constitutional Vitals: Temp Pulse Resp BP Pulse Ox 97.8 F 77 16 120/88 95 10/16/17 09:00 10/16/17 09:00 10/16/17 09:00 10/16/17 09:00 10/14/17 18:05 General appearance: age & developmentally appropriate - Musculoskeletal Gait: normal Station: other Strength & Tone: normal for patient - Psychiatric Patient Orientation: Yes Person, Yes Time, Yes Place, Yes Circumstance Level of alertness: Alert, Sedated Behavior: calm, cooperative Psychomotor activity: Slowed Eye Contact: Maintains Eye Contact Mood Description: Depressed Affect description: congruent with mood Speech Volume: Normal, Soft/Quiet Speech pattern: normal rate, normal rhythm Language & Vocabulary: consistent with education Thought Process: Logical, Goal Oriented Thought Content: Yes Intact Perceptual Disturbances: No Auditory hallucinations, No Visual hallucinations Attention Span Ability: Capable of Focused Attention Memory Description: Grossly Intact Patient Reliability: Reliable Historian Fund of knowledge: Yes below average Intelligence Estimate: Below Average Judgment: Poor Insight: Minimal
[2017-10-16] MEDS: Cyprohepatdine 4 MG TABLET PO SCH (21:27)
[2017-10-16] MEDS: hydrOXYzine pamoate 25 MG CAPSULE PO SCH (21:27)
[2017-10-16] MEDS: ARIPiprazole 2 MG TABLET PO SCH (21:28)
[2017-10-17] MEDS: Divalproex (12 HR) 500 MG TABLET PO SCH ×2 (08:54→22:13)
[2017-10-17] MEDS: Insulin DETEMIR 100 UNIT/ML X5UNITS SQ SCH ×2 (09:55→22:14)
--- NOTE | 2017-10-17 12:14 | Psychiatry Progress Note ---
Date of Encounter: 10/17/17 Time of Encounter: 11:20 Subjective Interval history: Identifying Data: The patient is a 37-year-old male, recently engaged, on SSI with a h/ o Bipolar disorder, h/o multiple inpatient hospitalizations, denied h/o illicit drug use, denied h/o violence/incarceration, medical h/o DM admitted to the floor on account of worsening depression with suicidal ideation. Interval Hx: There were no reported behavior issues or incident overnight. Patient FSG has been consistently elevated since his admission and has been put on an insulin sliding scale. Patient was seen this morning in his room. Patient has been calm and cooperative. He reported feeling better and rated his depression 5/10/. He denied any symptoms of anxiety. On review of symptoms, he denied any mood or psychotic symptoms including AH/Vh/SI/Hi. Patient is compliant with his medications and denied any magalie effect. He denied problems with his sleep or appetite. Depakote was increased to 500mg BID yesterday. Review of Systems Constitutional: Denies: fever, chills, weakness, weight change Eyes: Denies: eye pain, vision change Ears, Nose, Throat: Denies: ear pain, throat pain, dental pain, hearing loss, congestion Cardiovascular: Denies: chest pain, palpitations, dyspnea on exertion Respiratory: Denies: cough, dyspnea, wheezes Gastrointestinal: Denies: abdominal pain, nausea, vomiting, diarrhea, constipation Musculoskeletal: Denies: joint swelling, joint pain Neurological: Denies: headache, weakness, numbness, memory loss Psychiatric: Reports: depression, mood swings Results - Vital Signs Vital Signs: Temp Pulse Resp BP Pulse Ox 97.6 F 93 18 122/90 95 10/17/17 09:00 10/17/17 09:00 10/17/17 09:00 10/17/17 09:00 10/14/17 18:05 - Labs Labs: Laboratory Results - last 24 hr 10/16/17 10/17/17 19:53 08:52 POC Glucose 353 H 315 H Assessment and Plan (1) Suicidal ideation Current visit: Yes Status: Acute (2) Mood disorder Current visit: No Status: Chronic (3) MDD (major depressive disorder), recurrent severe, without psychosis Current visit: Yes Status: Acute (4) Intellectual disability Current visit: No Status: Acute Consult Discharge Plan - Plan Referrals: [facility] [employer] [employer] [Outside] - 10/26/17 8:30 am (The above appointment is with Lisa for outpatient mental health counseling services. You will also see Jessica Garcia for outpatient psychiatric assessment and medication management services on 11/17/2017 at 1:00 PM.) Psychiatry Exam - Constitutional Vitals: Temp Pulse Resp BP Pulse Ox 97.6 F 93 18 122/90 95 10/17/17 09:00 10/17/17 09:00 10/17/17 09:00 10/17/17 09:00 10/14/17 18:05 General appearance: age & developmentally appropriate - Musculoskeletal Gait: normal - Psychiatric Patient Orientation: Yes Person, Yes Time, Yes Place Level of alertness: Alert Behavior: calm, cooperative Psychomotor activity: Normal Eye Contact: Maintains Eye Contact Mood Description: Depressed Affect description: congruent with mood, full range Speech Volume: Normal Speech pattern: normal rate, normal rhythm, normal tone, fluent, spontaneous Language & Vocabulary: consistent with education Thought Process: Logical, Goal Oriented Thought Content: Yes Intact Perceptual Disturbances: Yes Reacting to internal stimuli Attention Span Ability: Capable of Focused Attention Memory Description: Grossly Intact Patient Reliability: Questionable Historian Fund of knowledge: Yes below average Intelligence Estimate: Below Average Judgment: Limited Insight: Minimal
[2017-10-17] MEDS: Insulin LISPRO 300 UNITS/3 ML VIAL SQ SCH ×3 (13:25→22:13)
[2017-10-17] MEDS: Ibuprofen 400 MG TABLET PO PRN (15:47)
[2017-10-17] MEDS: Cyprohepatdine 4 MG TABLET PO SCH (22:13)
[2017-10-17] MEDS: ARIPiprazole 2 MG TABLET PO SCH (22:13)
[2017-10-17] MEDS: hydrOXYzine pamoate 25 MG CAPSULE PO SCH (22:14)
[2017-10-18] MEDS: Insulin LISPRO 300 UNITS/3 ML VIAL SQ SCH ×3 (09:24→16:37)
[2017-10-18] MEDS: Divalproex (12 HR) 500 MG TABLET PO SCH ×2 (09:24→21:41)
[2017-10-18] MEDS: Insulin DETEMIR 100 UNIT/ML X5UNITS SQ SCH ×2 (10:14→21:41)
--- NOTE | 2017-10-18 14:14 | Psychiatry Progress Note ---
Date of Encounter: 10/18/17 Time of Encounter: 14:12 Subjective Interval history: Patient seen for follow-up. Case discussed with nursing staff. He denied any suicidal ideation. She participated in groups. Blood sugar still in the 300s. He is cooperative and pleasant. Anxious to go home. No behavioral issues. Review of Systems Psychiatric: Reports: depression, mood swings Results - Vital Signs Vital Signs: Temp Pulse Resp BP Pulse Ox 97.7 F 99 16 111/84 95 10/18/17 09:00 10/18/17 09:00 10/18/17 09:00 10/18/17 09:00 10/14/17 18:05 - Labs Labs: Laboratory Results - last 24 hr 10/17/17 10/17/17 10/18/17 16:16 21:19 08:12 POC Glucose 305 H 388 H 284 H 10/18/17 11:28 POC Glucose 331 H Assessment and Plan (1) MDD (major depressive disorder), recurrent severe, without psychosis Current visit: Yes Status: Acute Plan: Continue hospitalization, Close observation, Suicide Precautions per unit protocol, Encourage participation in unit milieu, Group Therapy, Monitor sleep, Monitor appetite Risks, benefits, side effects, alternatives discussed w/pt: Yes Patient agreeable to treatment: Yes Consult Discharge Plan - Plan Referrals: Ji Guerrero [facility] Supervisor [facility] [Outside] - 10/26/17 8:30 am (The above appointment is with Lisa for outpatient mental health counseling services. You will also see Jessica Garcia for outpatient psychiatric assessment and medication management services on 11/17/2017 at 1:00 PM.) Psychiatry Exam - Constitutional Vitals: Temp Pulse Resp BP Pulse Ox 97.7 F 99 16 111/84 95 10/18/17 09:00 10/18/17 09:00 10/18/17 09:00 10/18/17 09:00 10/14/17 18:05 General appearance: age & developmentally appropriate, well-groomed, well- nourished - Musculoskeletal Gait: normal Station: relaxed Strength & Tone: normal for patient - Psychiatric Patient Orientation: Yes Person, Yes Time, Yes Place Level of alertness: Alert Behavior: cooperative, anxious, restless Psychomotor activity: Increased Eye Contact: Maintains Eye Contact Mood Description: Euthymic/stable, Anxious Affect description: congruent with mood, labile Speech Volume: Normal Speech pattern: normal rate, normal rhythm, normal tone, fluent, spontaneous, rambling Language & Vocabulary: consistent with education Thought Process: Linear, Goal Oriented Thought Content: No Suicidal ideation, No Homicidal ideation, No Overt delusions Perceptual Disturbances: No Auditory hallucinations, No Visual hallucinations Attention Span Ability: Capable of Focused Attention Memory Description: Grossly Intact Patient Reliability: Reliable Historian Fund of knowledge: Yes abstraction ability, Yes aware of current events Intelligence Estimate: Average Judgment: Limited Insight: Partial
[2017-10-18] MEDS: hydrOXYzine pamoate 25 MG CAPSULE PO PRN (17:47)
[2017-10-18] MEDS: Cyprohepatdine 4 MG TABLET PO SCH (21:41)
[2017-10-18] MEDS: ARIPiprazole 2 MG TABLET PO SCH (21:41)
[2017-10-18] MEDS: hydrOXYzine pamoate 25 MG CAPSULE PO SCH (21:42)
[2017-10-19] MEDS: Insulin LISPRO 300 UNITS/3 ML VIAL SQ SCH ×2 (00:13→09:19)
[2017-10-19 09:17] VITALS: BP 118/84
[2017-10-19] MEDS: Divalproex (12 HR) 500 MG TABLET PO SCH (09:20)
[2017-10-19] MEDS: Insulin DETEMIR 100 UNIT/ML X5UNITS SQ SCH (09:20)
[2017-10-19 09:29] LABS: Estimated Average Glucose 303 mg/dl; Hemoglobin A1C 12.2 %
--- NOTE | 2017-10-19 10:24 | Discharge Summary ---
Date of Encounter: 10/19/17 Time of Encounter: 10:18 Diagnosis - Discharge Diagnosis (1) MDD (major depressive disorder), recurrent severe, without psychosis Status: Acute Medications - Discharge Medications Prescriptions: ARIPiprazole [Abilify] 2 mg PO HS #30 tablet Cyprohepatdine [Periactin] 4 mg PO HS #30 tablet Divalproex (12 HR) [Depakote (12 HR)] 500 mg PO BID #60 tablet. Trazodone HCl 150 - 300 mg PO HS 09/14/17 [History] ARIPiprazole [Abilify] 2 mg PO HS #30 tablet 10/19/17 [Rx] Cyprohepatdine [Periactin] 4 mg PO HS #30 tablet 10/19/17 [Rx] Divalproex (12 HR) [Depakote (12 HR)] 500 mg PO BID #60 tablet. 10/19/17 [Rx] Insulin DETEMIR [Levemir] 10 unit SQ BID [id number] 10/19/17 [Rx] Insulin LISPRO [HumaLOG] 0 units SQ HS vial 10/19/17 [Rx] Insulin LISPRO [HumaLOG] 0 units SQ TIDAC vial 10/19/17 [Rx] Metoprolol [Lopressor] 25 mg PO BID tablet 10/19/17 [Rx] Simvastatin [Zocor] 10 mg PO HS tablet 10/19/17 [Rx] 3 Allergy/AdvReac Type Severity Reaction Status Date / Time potassium Allergy Anaphylaxis Verified 10/14/17 20:47 Penicillins AdvReac Hives Verified 10/14/17 20:47 sodium bicarb Allergy Severe Anaphylaxis Uncoded 10/14/17 20:47 sodium chloride Allergy Severe Anaphylaxis Uncoded 10/14/17 20:47 sodium sulfide Allergy Severe Anaphylaxis Uncoded 10/14/17 20:47 peanuts Allergy Unknown Anaphylaxis Uncoded 10/14/17 20:47 Ipratropium [place] Allergy Anaphylaxis Uncoded 10/14/17 20:47 Results Procedures and tests throughout hospitalization: Completed Lab Orders Category Date Time Status CBC [Complete Blood Count] [HEME] Routine Lab 10/16/17 07:47 Completed Hgb A1C Routine Lab 10/15/17 08:00 Completed LFTs [Hepatic Panel] Routine Lab 10/16/17 07:47 Completed Valproate Routine Lab 10/16/17 07:47 Completed Provider Date of admission: 10/14/17 21:33 Primary care physician: PCP NONE Consults: 10/14/17 22:14 Consult to Pastoral Services [CONS] Routine Comment: 10/18/17 10:09 Consult to Hospitalist [CONS] Routine Consulting Provider: Hospitalist Ricky Reason for Consult: Poorly controlled diabetes with blood sugars greater than 300 - currently on medium sliding scale coverage with blood sugars remaining greater than 300. Also receives Levemir bid Time Notified: 10:20 Call Completed: No Discharging clinician: Parag Manjarrez Psychiatry Exam - Constitutional Vitals: Temp Pulse Resp BP Pulse Ox 98.4 F 90 14 118/84 95 10/19/17 09:00 10/19/17 09:00 10/19/17 09:00 10/19/17 09:00 10/14/17 18:05 General appearance: age & developmentally appropriate, well-groomed, well- nourished - Musculoskeletal Gait: normal Station: relaxed Strength & Tone: normal for patient - Psychiatric Patient Orientation: Yes Person, Yes Time, Yes Place Level of alertness: Alert Behavior: calm, cooperative, anxious, talkative Psychomotor activity: Normal Eye Contact: Maintains Eye Contact Mood Description: Euthymic/stable, Anxious Affect description: congruent with mood, full range Speech Volume: Normal Speech pattern: normal rate, normal rhythm, normal tone, fluent, spontaneous Language & Vocabulary: consistent with education Thought Process: Linear, Goal Oriented Thought Content: No Suicidal ideation, No Homicidal ideation, No Overt delusions Perceptual Disturbances: No Auditory hallucinations, No Visual hallucinations Attention Span Ability: Capable of Focused Attention Memory Description: Grossly Intact Patient Reliability: Reliable Historian Fund of knowledge: Yes abstraction ability, Yes aware of current events Intelligence Estimate: Average Judgment: Limited Insight: Partial Hospital Course Hospital course: Mr. Villeda is a 37 year old male admitted for suicidal ideation. Patient has long history of recurrent depression and suicidal ideation. For details of admission please see H&P On the unit the patient was treated with Abilify, his Depakote was increased to 500 mg twice daily. Patient tolerated medication changes he was seen by internal medicine to address his diabetic control that was in adequate and his drug regimen was reviewed and adjusted. Patient was medication compliant and cooperative. Participated in groups and activities. Did not display any behavioral problems or agitation. His sleep improved. On discharge patient was medically stable, denies suicidal ideation looking forward to follow-up after discharge. He was educated about his medication compliance and diabetic treatment. Patient is discharged in stable condition. Discharge plans as per social work notes. - Time Spent with Patient Total time spent providing and/or coordinating discharge services: Less than 30 minutes Assessment and Plan - Patient/Caregiver Discharge Instructions Activity: resume usual activities as tolerated Diet: regular diet - Follow up Plan Follow up with: Ji Guerrero [facility] [Outside] - 10/26/17 8:30 am (The above appointment is with Lisa for outpatient mental health counseling services. You will also see Jessica Garcia for outpatient psychiatric assessment and medication management services on 11/17/2017 at 1:00 PM.) Functional capacity at discharge: independent ambulation Overall status at discharge: Stable Disposition: Home, Self-Care Quality - Multiple Antipsychotics Patient discharged on 2 or more antipsychotic medications: No Procedures - Procedures Procedures: Medication Management, Crisis Stabilization, Supportive Therapy, Group Therapy, Psychoeducational Therapy
== END 2017-10-19 12:10 | disposition home or self-care (01) | DRG 885 ==
LOC: EMEROO 17:56 → 1ANU 17:56 → SUATTDRO 21:33
PROVIDERS: ADMIT Psychiatry & Neurology Forensic Psychiatry; ATTEND Psychiatry & Neurology Psychiatry

== ENCOUNTER 2017-12-16 16:18 | Inpatient (IN) ==
[2017-12-16] MEDS ORDERED: 0.9 % Sodium Chloride 1,000 ML IVC ONE ×2 (18:40→19:58)
--- NOTE | 2017-12-16 18:40 | Emergency Department Note ---
Disposition Clinical Impression: Hyperglycemia Syncope Qualifiers: Syncope type: unspecified Qualified Code(s): R55 - Syncope and collapse Disposition: Admitted As Inpatient Condition: Fair Syncope HPI - General Chief Complaint: ED Syncope Stated Complaint: generalized weakness, passing out Time Seen by Provider: 12/16/17 18:24 Source: patient, family Limitations: no limitations Nursing Notes Reviewed: Yes Vital Signs Reviewed: Yes - History of Present Illness HPI Narrative: 37-year-old male presents emergency department after having episodes of syncope. Patient is insulin-dependent diabetic who has been taking all of his insulin is normal. Patient's denies any prodromal symptoms prior to this he be. He denies any dizziness, chest pain, palpitations. Patient's reporting lower abdominal pain that he localizes from the suprapubic to left lower quadrant. States he has never had issues with this with elevated level of S1. He denies any fevers, cough, sputum production. Patient does report that it malik when he urinates. Patient reports today when he had the episode of lightheadedness, he fell and lost consciousness. Denies any history of seizures. Patient does have muscular dystrophy disorder. - Related Data Home Medications Medication Instructions Recorded Confirmed Trazodone HCl 150 - 300 mg PO HS 09/14/17 12/16/17 Divalproex (12 HR) [Depakote (12 1,000 mg PO HS 12/16/17 12/16/17 HR)] Previous Rx's Medication Instructions Recorded ARIPiprazole [Abilify] 2 mg PO HS #30 tablet 10/19/17 Cyprohepatdine [Periactin] 4 mg PO HS #30 tablet 10/19/17 Insulin DETEMIR [Levemir] 10 unit SQ BID p3ynote 10/19/17 Insulin LISPRO [HumaLOG] 0 units SQ TIDAC vial 10/19/17 Metoprolol [Lopressor] 25 mg PO BID tablet 10/19/17 Simvastatin [Zocor] 10 mg PO HS tablet 10/19/17 Ziprasidone HCl [Geodon] 20 mg PO HS #6 capsule 12/14/17 Allergies Allergy/AdvReac Type Severity Reaction Status Date / Time potassium Allergy Anaphylaxis Verified 12/16/17 20:32 Penicillins AdvReac Hives Verified 12/16/17 20:32 sodium bicarb Allergy Severe Anaphylaxis Uncoded 12/16/17 20:32 sodium chloride Allergy Severe Anaphylaxis Uncoded 12/16/17 20:32 sodium sulfide Allergy Severe Anaphylaxis Uncoded 12/16/17 20:32 peanuts Allergy Unknown Anaphylaxis Uncoded 12/16/17 20:32 Ipratropium [place] Allergy Anaphylaxis Uncoded 12/16/17 20:32 All systems ED: reviewed and negative except as stated. Review of Systems: As Per HPI Constitutional: Denies: fever Cardiovascular: Denies: chest pain, palpitations Respiratory: Denies: cough, dyspnea, sputum production Gastrointestinal: Reports: abdominal pain, nausea. Denies: vomiting Genitourinary: Denies: urgency, dysuria, frequency Musculoskeletal: Denies: back pain, neck pain Integumentary: Denies: rash Neurological: Reports: headache. Denies: weakness, numbness, paresthesias Endocrine: Reports: fatigue Past Medical History - Past Medical History Medical history: Reports: arthritis, asthma, COPD, diabetes, hyperlipidemia, hypertension Surgical history: Reports: cholecystectomy Psychiatric history: Reports: depression, prior suicide attempt, previous psychiatric hospitalization - Social History Smoking Status: Former smoker Smokeless Tobacco Status: No Alcohol use: Reports: occasionally Drug use: Reports: none Physical Exam - General Limitations: no limitations General appearance: alert, in no apparent distress - Head Head exam: atraumatic, normocephalic - Eye Eye exam: Present: EOMI - ENT ENT exam: normal oropharynx - Neck Neck exam: Present: trachea midline - Chest Chest inspection: Present: symmetric chest wall rise - Respiratory Respiratory exam: Present: normal lung sounds bilaterally - Cardiovascular Cardiovascular exam: Present: normal rhythm, normal heart sounds - Abdominal Exam Abdominal exam: Present: soft, tenderness. Absent: distention, guarding, rebound, rigidity Abdominal tenderness: Present: LLQ, suprapubic, moderate - Extremities Exam Extremities exam: Present: normal capillary refill Course Vital Signs Temperature 98.4 F 12/16/17 16:31 Pulse Rate 101 12/16/17 16:31 Respiratory Rate 20 12/16/17 16:31 Blood Pressure 135/88 12/16/17 16:31 O2 Sat by Pulse Oximetry 96 12/16/17 16:31 Temperature 98.8 F 12/17/17 01:14 Pulse Rate 70 12/17/17 01:14 Respiratory Rate 16 12/17/17 01:14 Blood Pressure 142/82 12/17/17 01:14 O2 Sat by Pulse Oximetry 95 12/17/17 01:14 Oxygen Delivery Oxygen Delivery Room Air Syncope - [facility] Narrative Medical decision making narrative: 37-year-old male presents emergency department with concern for elevated glucose , lower abdominal pain, syncopal episodes. Accu-Chek was in the high 400s on EMS. Glucose was 341 here. Patient not in DKA as his Beta hydroxy butyric acid negative. Anion gap is 7. We obtained a CT scan of the head and neck which revealed no intracranial or cervical abnormality. We obtain a chest x- ray that was unremarkable. CT scan of abdomen and pelvis did not reveal any acute abnormality. Urinalysis urinalysis is also within normal limits. Patient's EKG that was obtained and I reveal any ischemic ST changes. No evidence of any arrhythmia or Brugada syndrome, with Parkinson White syndrome, hypertrophic cardiomyopathy, QT prolongation. After looking at patient's previous records, he was admitted for this in the past. He received neck and head MRA. These are within normal limits. He was followed by cardiology. Most likely etiology for syncope his orthostatic hypotension as patient reports to passing out after standing up. Despite patient admitting to taking his insulin regularly there has been concern in the past that he may not be compliant with his medications. This time, this is most likely etiology for his hyperglycemia Patient was given 2 L normal saline here in the emergency department as well as 10 units of insulin. After insulin administration, repeat glucose was in the 140s. We will admit this patient for further observation regarding his syncopal episodes. Also, recommendations for further education with his hyperglycemia. Patient agree with the plan for admission, as he stated that he was not feeling well. Patient admitted to the hospitalist. Chest X-Ray 12/16/17 18:35 IMPRESSION: Unremarkable chest radiograph. D/ / Kong Link / Kong Link Interpreting Provider: Kong Link Cervical Spine CT 12/16/17 18:36 IMPRESSION: No acute abnormality of the cervical spine. D/ / Charlie Mccoy MD / Charlie Mccoy MD Interpreting Provider: Charlie Mccoy MD Head CT 12/16/17 18:36 IMPRESSION: No acute intracranial abnormality. D/ / Charlie Mccoy MD / Charlie Mccoy MD Interpreting Provider: Charlie Mccoy MD Abdomen/Pelvis CT 12/16/17 18:44 IMPRESSION: No acute abnormality detected. D/ / Marbin Ryder MD / Marbin Ryder MD Interpreting Provider: Marbin Ryder MD - Lab Data Result diagrams: 12/16/17 18:45 12/16/17 18:45 Lab Results 12/16/17 12/16/17 12/16/17 Range/Units 18:45 18:45 18:45 WBC 10.1 (4.3-11.1) K/mcL RBC 5.65 H (4.19-5.50) M/mcL Hgb 16.6 (12.9-16.9) g/dL Hct 48.2 (37.5-50.1) % MCV 85.3 (83.0-100.0) fL MCH 29.4 (28.0-33.3) pg MCHC 34.4 (31.6-35.5) g/dL RDW 13.0 (11.5-14.5) % Plt Count 270 (140-400) K/mcL MPV 11.1 (9.4-12.4) fL Immature Gran % 0.3 (0-4) % Seg Neutrophils % 54.1 % Lymphocytes % 30.8 % Monocytes % 10.9 % Eosinophils % 2.5 % Basophils % 1.4 % Neutrophils # 5.4 (1.6-8.9) K/mcL Lymphocytes # 3.1 (0.6-4.6) K/mcL Monocytes # 1.1 (0.0-1.3) K/mcL Eosinophils # 0.3 (0.0-0.6) K/mcL Basophils # 0.1 (0.0-0.2) K/mcL PT 13.1 H (9.4-12.1) Seconds INR 1.2 APTT 31.2 (26.0-36.0) Seconds Sodium (136-145) mEq/L Potassium (3.5-5.1) mEq/L Chloride (98-107) mEq/L Carbon Dioxide (23-29) mEq/L BUN (6-20) mg/dL Creatinine (0.70-1.30) mg/dL Est GFR ( Amer) (> 60) Est GFR (Non-Af Amer) (> 60) BUN/Creatinine Ratio (6-26) Glucose (70-105) mg/dL Calculated Osmolality (280-300) Calcium (8.6-10.3) mg/dL Total Bilirubin (0.3-1.0) mg/dL Direct Bilirubin (0.0-0.2) mg/dL Indirect Bilirubin (0.0-1.2) mg/dL AST (13-39) Units/L ALT (7-52) Units/L Alkaline Phosphatase (34-104) Units/L Troponin I (< 0.04) ng/mL Serum Total Protein (6.4-8.9) g/dL Albumin (3.5-5.7) g/dL Globulin (2.4-3.5) g/dL Albumin/Globulin Ratio (1.1-2.2) Lipase (11-82) Units/L Beta-Hydroxybutyric Acd 0.18 (0.02-0.27) mmol/L Urine Color (Yellow) Urine Clarity (Clear) Urine pH (5.0-8.0) pH Units Ur Specific [place] (1.010-1.025) Urine Protein (Neg-Trace) mg/dL Urine Glucose (UA) (Normal) mg/dL Urine Ketones (Negative) mg/dL Urine Blood (Negative) Urine Nitrite (Negative) Urine Bilirubin (Negative) Urine Urobilinogen (Normal) mg/dL Ur Leukocyte Esterase (Negative) Ur Culture Indicated? (NO) 12/16/17 12/16/17 Range/Units 18:45 21:52 WBC (4.3-11.1) K/mcL RBC (4.19-5.50) M/mcL Hgb (12.9-16.9) g/dL Hct (37.5-50.1) % MCV (83.0-100.0) fL MCH (28.0-33.3) pg MCHC (31.6-35.5) g/dL RDW (11.5-14.5) % Plt Count (140-400) K/mcL MPV (9.4-12.4) fL Immature Gran % (0-4) % Seg Neutrophils % % Lymphocytes % % Monocytes % % Eosinophils % % Basophils % % Neutrophils # (1.6-8.9) K/mcL Lymphocytes # (0.6-4.6) K/mcL Monocytes # (0.0-1.3) K/mcL Eosinophils # (0.0-0.6) K/mcL Basophils # (0.0-0.2) K/mcL PT (9.4-12.1) Seconds INR APTT (26.0-36.0) Seconds Sodium 135 L (136-145) mEq/L Potassium 3.8 (3.5-5.1) mEq/L Chloride 103 (98-107) mEq/L Carbon Dioxide 23 (23-29) mEq/L BUN 8 (6-20) mg/dL Creatinine 0.72 (0.70-1.30) mg/dL Est GFR ( Amer) > 60 (> 60) Est GFR (Non-Af Amer) > 60 (> 60) BUN/Creatinine Ratio 11 (6-26) Glucose 341 H (70-105) mg/dL Calculated Osmolality 292 (280-300) Calcium 9.8 (8.6-10.3) mg/dL Total Bilirubin 0.4 (0.3-1.0) mg/dL Direct Bilirubin 0.1 (0.0-0.2) mg/dL Indirect Bilirubin 0.3 (0.0-1.2) mg/dL AST 23 (13-39) Units/L ALT 35 (7-52) Units/L Alkaline Phosphatase 81 (34-104) Units/L Troponin I < 0.03 (< 0.04) ng/mL Serum Total Protein 7.8 (6.4-8.9) g/dL Albumin 4.3 (3.5-5.7) g/dL Globulin 3.5 (2.4-3.5) g/dL Albumin/Globulin Ratio 1.2 (1.1-2.2) Lipase 40 (11-82) Units/L Beta-Hydroxybutyric Acd (0.02-0.27) mmol/L Urine Color Yellow (Yellow) Urine Clarity Clear (Clear) Urine pH 6.0 (5.0-8.0) pH Units Ur Specific [place] > 1.030 H (1.010-1.025) Urine Protein Negative (Neg-Trace) mg/dL Urine Glucose (UA) >=1000 H (Normal) mg/dL Urine Ketones Negative (Negative) mg/dL Urine Blood Negative (Negative) Urine Nitrite Negative (Negative) Urine Bilirubin Negative (Negative) Urine Urobilinogen Normal (Normal) mg/dL Ur Leukocyte Esterase Negative (Negative) Ur Culture Indicated? NO (NO) - EKG Data EKG attestation: Yes I reviewed and interpreted this EKG. EKG results narrative: 17:12 Ventricular rate 91 bpm, SC interval 143 ms, QRS duration 97 ms, QT 330 ms, QTC 379 ms, normal axis. Sinus rhythm with a ventricular rate of 91 bpm. No evidence of any ischemic ST changes on the EKG.
[2017-12-16] MEDS ORDERED: Isovue-370 500 ML INFUS..BTL IV ONE (18:44)
[2017-12-16] MEDS ORDERED: Metoclopramide 10 MG/2 ML VIAL IVP ONE (18:58)
[2017-12-16 19:13] LABS: Basophils # 0.1 K/mcL (0.0-0.2); Basophils % 1.4 %; Eosinophils # 0.3 K/mcL (0.0-0.6); Eosinophils % 2.5 %; Hematocrit 48.2 % (37.5-50.1); Hemoglobin 16.6 g/dL (12.9-16.9); Immature Granulocytes % 0.3 % (0-4); Lymphocytes # 3.1 K/mcL (0.6-4.6); Lymphocytes % 30.8 %; Mean Corpuscular HGB Conc 34.4 g/dL (31.6-35.5); Mean Corpuscular Hemoglobin 29.4 pg (28.0-33.3); Mean Corpuscular Volume 85.3 fL (83.0-100.0); Mean Platelet Volume 11.1 fL (9.4-12.4); Monocytes # 1.1 K/mcL (0.0-1.3); Monocytes % 10.9 %; Neutrophils # 5.4 K/mcL (1.6-8.9); Platelet Count 270 K/mcL (140-400); Red Blood Count 5.65 M/mcL (4.19-5.50); Segmented Neutrophils % 54.1 %
[2017-12-16 19:21] LABS: INR 1.2; Prothrombin Time 13.1 Seconds (9.4-12.1)
[2017-12-16 19:24] LABS: Activated Partial Thrombo Time 31.2 Seconds (26.0-36.0)
[2017-12-16 19:33] LABS: Troponin I < 0.03 ng/mL (< 0.04)
[2017-12-16 19:36] LABS: BUN/Creatinine Ratio 11 (6-26); Blood Urea Nitrogen 8 mg/dL (6-20); Calcium 9.8 mg/dL (8.6-10.3); Carbon Dioxide 23 mEq/L (23-29); Chloride 103 mEq/L (98-107); Glucose 341 mg/dL (70-105); Osmolality,Calculated 292 (280-300); Potassium 3.8 mEq/L (3.5-5.1); Sodium 135 mEq/L (136-145); eGFR For Non-African Americans > 60 (> 60)
--- NOTE | 2017-12-16 19:51 | Emergency Department Note ---
Disposition Clinical Impression: Syncope Disposition: Still a Patient Condition: Fair Referrals: NONE,PCP [Primary Care Provider] - Forms: ED Satisfaction Letter, Work/School Release General Adult HPI - General Chief complaint: ED Syncope Stated complaint: generalized weakness, passing out Time Seen by Provider: 12/16/17 18:24 Source: patient, family Limitations: no limitations Nursing Notes Reviewed: Yes Vital Signs Reviewed: Yes - History of Present Illness Pain Scale: 0 - Related Data Home Medications Medication Instructions Recorded Confirmed Trazodone HCl 150 - 300 mg PO HS 09/14/17 10/14/17 Previous Rx's Medication Instructions Recorded ARIPiprazole [Abilify] 2 mg PO HS #30 tablet 10/19/17 Cyprohepatdine [Periactin] 4 mg PO HS #30 tablet 10/19/17 Divalproex (12 HR) [Depakote (12 500 mg PO BID #60 tablet. 10/19/17 HR)] Insulin DETEMIR [Levemir] 10 unit SQ BID [id number] 10/19/17 Insulin LISPRO [HumaLOG] 0 units SQ HS vial 10/19/17 Insulin LISPRO [HumaLOG] 0 units SQ TIDAC vial 10/19/17 Metoprolol [Lopressor] 25 mg PO BID tablet 10/19/17 Simvastatin [Zocor] 10 mg PO HS tablet 10/19/17 Ziprasidone HCl [Geodon] 20 mg PO HS #6 capsule 12/14/17 Allergies Allergy/AdvReac Type Severity Reaction Status Date / Time potassium Allergy Anaphylaxis Verified 10/14/17 20:47 Penicillins AdvReac Hives Verified 10/14/17 20:47 sodium bicarb Allergy Severe Anaphylaxis Uncoded 10/14/17 20:47 sodium chloride Allergy Severe Anaphylaxis Uncoded 10/14/17 20:47 sodium sulfide Allergy Severe Anaphylaxis Uncoded 10/14/17 20:47 peanuts Allergy Unknown Anaphylaxis Uncoded 10/14/17 20:47 Ipratropium [place] Allergy Anaphylaxis Uncoded 10/14/17 20:47 Constitutional: Denies: fever Cardiovascular: Denies: chest pain, palpitations Respiratory: Denies: cough, dyspnea, sputum production Gastrointestinal: Reports: abdominal pain, nausea. Denies: vomiting Genitourinary: Denies: urgency, dysuria, frequency Musculoskeletal: Denies: back pain, neck pain Integumentary: Denies: rash Neurological: Reports: headache. Denies: weakness, numbness, paresthesias Endocrine: Reports: fatigue Past Medical History - Past Medical History Medical history: Reports: arthritis, asthma, COPD, diabetes, hyperlipidemia, hypertension Surgical history: Reports: cholecystectomy Psychiatric history: Reports: depression, prior suicide attempt, previous psychiatric hospitalization - Social History Smoking Status: Former smoker Smokeless Tobacco Status: No Alcohol use: Reports: occasionally Drug use: Reports: none Physical Exam - General Limitations: no limitations General appearance: alert, in no apparent distress Course Vital Signs Temperature 98.4 F 12/16/17 16:31 Pulse Rate 101 12/16/17 16:31 Respiratory Rate 20 12/16/17 16:31 Blood Pressure 135/88 12/16/17 16:31 O2 Sat by Pulse Oximetry 96 12/16/17 16:31 Temperature 98.4 F 12/16/17 16:31 Pulse Rate 101 12/16/17 16:31 Respiratory Rate 20 12/16/17 16:31 Blood Pressure 135/88 12/16/17 16:31 O2 Sat by Pulse Oximetry 96 12/16/17 16:31 Oxygen Delivery Oxygen Delivery Room Air Medical Decision Making - Lab Data Result diagrams: 12/16/17 18:45 12/16/17 18:45 Lab Results 12/16/17 12/16/17 12/16/17 Range/Units 18:45 18:45 18:45 WBC 10.1 (4.3-11.1) K/mcL RBC 5.65 H (4.19-5.50) M/mcL Hgb 16.6 (12.9-16.9) g/dL Hct 48.2 (37.5-50.1) % MCV 85.3 (83.0-100.0) fL MCH 29.4 (28.0-33.3) pg MCHC 34.4 (31.6-35.5) g/dL RDW 13.0 (11.5-14.5) % Plt Count 270 (140-400) K/mcL MPV 11.1 (9.4-12.4) fL Immature Gran % 0.3 (0-4) % Seg Neutrophils % 54.1 % Lymphocytes % 30.8 % Monocytes % 10.9 % Eosinophils % 2.5 % Basophils % 1.4 % Neutrophils # 5.4 (1.6-8.9) K/mcL Lymphocytes # 3.1 (0.6-4.6) K/mcL Monocytes # 1.1 (0.0-1.3) K/mcL Eosinophils # 0.3 (0.0-0.6) K/mcL Basophils # 0.1 (0.0-0.2) K/mcL PT 13.1 H (9.4-12.1) Seconds INR 1.2 APTT 31.2 (26.0-36.0) Seconds Sodium (136-145) mEq/L Potassium (3.5-5.1) mEq/L Chloride (98-107) mEq/L Carbon Dioxide (23-29) mEq/L BUN (6-20) mg/dL Creatinine (0.70-1.30) mg/dL Est GFR ( Amer) (> 60) Est GFR (Non-Af Amer) (> 60) BUN/Creatinine Ratio (6-26) Glucose (70-105) mg/dL Calculated Osmolality (280-300) Calcium (8.6-10.3) mg/dL Troponin I (< 0.04) ng/mL Beta-Hydroxybutyric Acd 0.18 (0.02-0.27) mmol/L 12/16/17 Range/Units 18:45 WBC (4.3-11.1) K/mcL RBC (4.19-5.50) M/mcL Hgb (12.9-16.9) g/dL Hct (37.5-50.1) % MCV (83.0-100.0) fL MCH (28.0-33.3) pg MCHC (31.6-35.5) g/dL RDW (11.5-14.5) % Plt Count (140-400) K/mcL MPV (9.4-12.4) fL Immature Gran % (0-4) % Seg Neutrophils % % Lymphocytes % % Monocytes % % Eosinophils % % Basophils % % Neutrophils # (1.6-8.9) K/mcL Lymphocytes # (0.6-4.6) K/mcL Monocytes # (0.0-1.3) K/mcL Eosinophils # (0.0-0.6) K/mcL Basophils # (0.0-0.2) K/mcL PT (9.4-12.1) Seconds INR APTT (26.0-36.0) Seconds Sodium 135 L (136-145) mEq/L Potassium 3.8 (3.5-5.1) mEq/L Chloride 103 (98-107) mEq/L Carbon Dioxide 23 (23-29) mEq/L BUN 8 (6-20) mg/dL Creatinine 0.72 (0.70-1.30) mg/dL Est GFR ( Amer) > 60 (> 60) Est GFR (Non-Af Amer) > 60 (> 60) BUN/Creatinine Ratio 11 (6-26) Glucose 341 H (70-105) mg/dL Calculated Osmolality 292 (280-300) Calcium 9.8 (8.6-10.3) mg/dL Troponin I < 0.03 (< 0.04) ng/mL Beta-Hydroxybutyric Acd (0.02-0.27) mmol/L Attestation Statement - Attestation Attestation: I, Mike Link, examined this patient and my medical decision-making was reviewed with the WELL DRILLER HELPER/PA/Advanced Practice Nurse/Resident Physician. I agree with the documented findings, disposition and treatment plan as described except to the extent set forth below. 37-year-old male presents emergency Department with concerns of lightheadedness , elevated blood glucose level and syncopal episode. Patient is a type II diabetic that is insulin-dependent, he denies missing any of his medications. He denies chest pain, shortness of breath however he does have a left lower quadrant abdominal pain which is not usual for him. Patient has mild tenderness to palpation of left lower quadrant on exam however there is no rigidity, guarding, rebound. Patient states he syncopized at home, is unable to give a history regarding his case and presentation regarding the syncopal event. He states that that is not normal for him as well. EMS noted a left lower facial droop upon their arrival however patient had not noticed it before that time, it is not present during my exam in the emergency department. Katerina states she noticed it when EMS pointed it out but is unable to clearly identify it in the emergency department. They state the last known time that he is at his baseline prior to EMS picking them up was yesterday morning. He has no other focal neurologic deficits. He does have a history of muscular dystrophy which affects his strength however he states that this is at its baseline. Patient denies diarrhea, hematochezia, melena. We will obtain a CT of the head and neck to rule out intracranial hemorrhage or fracture secondary to the fall. Chest x-ray did not show evidence of acute infiltrate. We will obtain CT of the abdomen and pelvis to further evaluate for possible colitis versus diverticulitis. Imaging and disposition pending at this time.
[2017-12-16] MEDS ORDERED: Insulin Human Regular 10 UNIT in 0.9 % Sodium Chloride 10 ML IV ONE (19:58)
[2017-12-16 21:44] LABS: Alanine Aminotransferase 35 Units/L (7-52); Albumin 4.3 g/dL (3.5-5.7); Albumin/Globulin Ratio 1.2 (1.1-2.2); Alkaline Phosphatase 81 Units/L (34-104); Aspartate Amino Transferase 23 Units/L (13-39); Bilirubin,Direct 0.1 mg/dL (0.0-0.2); Bilirubin,Indirect 0.3 mg/dL (0.0-1.2); Bilirubin,Total 0.4 mg/dL (0.3-1.0); Globulin 3.5 g/dL (2.4-3.5); Lipase 40 Units/L (11-82); Total Protein 7.8 g/dL (6.4-8.9)
[2017-12-16 22:05] LABS: Bilirubin,Urine Negative (Negative); Blood,Urine Negative (Negative); Clarity,Urine Clear (Clear); Color,Urine Yellow (Yellow); Glucose,Urine (UA) >=1000 mg/dL (Normal); Ketones,Urine Negative (Negative); Leukocyte Esterase,Urine Negative (Negative); Nitrite,Urine Negative (Negative); Protein,Urine Negative (Neg-Trace); Specific Gravity,Urine > 1.030 (1.010-1.025); Urobilinogen,Urine Normal (Normal)
[2017-12-17] MEDS ORDERED: Naloxone 0.4 MG/ML INJ IVP PRN (03:45)
--- NOTE | 2017-12-17 04:24 | Internal Med History&Physical ---
Date of Encounter: 12/17/17 Time of Encounter: 03:10 Internal Medicine - H&P: HPI Chief complaint: Syncope Admitted From: Home Plans for Post Hospital Care: Home History of present illness: Mr. Villeda is a 37 year old male Patient states that he passed out 3 times on the day of admission: Once while he was going to the restroom, once when he was getting up from the toilet, and one time coming from the bathroom. He also says he has had episodes of blacking out when he is just laying on the bed. The episodes are not predictable, and prior to each episode he says he gets a pounding in his head and nausea. After each episode he feels very weak and fatigued. He has had similar episodes like this for some time, with extensive workup from cardiology , neurology and psychiatry. There have been no clear triggers or diagnoses. He was transported to the emergency room where his vitals were mostly within normal limits only with a mildly elevated heart rate of 101. His initial labs showed a hemoglobin of 16.6 and blood glucose of 341. He has an history of muscular dystrophy and diabetes. Upon arrival to the ER, patient stated that he had lower abdominal pain as well as pain with urination. In the emergency room chest x-ray, head CT, cervial spine CT and abdominal pelvis CT were all within normal limits. UA was also within normal limits aside from elevated urine glucose and elevated specific gravity. He was admitted for further management of his symptoms. Currently patient states that he has lower abdominal pain, but has not had any further syncopal episodes or blacking out. Patient denies fever, chills, nausea , vomiting, diarrhea, constipation and chest pain. Does have lower abdominal pain and dysuria as above. This pain started on the day of admission. Past Med Surg Social Fam HX - Past Medical History Medical history: arthritis, asthma, COPD, diabetes, hyperlipidemia, hypertension Additional medical history: sleep apnea uses oxygen 2L at HS Psychiatric history: depression, prior suicide attempt, previous psychiatric hospitalization - Past Surgical History Surgical History: cholecystectomy Additional surgical history: rt eye surgery in 2004 - Social History Smoking Status: Former smoker Packs per day: 0.25 Smokeless Tobacco Status: No Alcohol use: occasionally Drug use: none - Family History Father Family Member Ethnicity: Non- Living Status: Hx Family Cardiac Disorders: Yes (Stroke, DE, HLD, HTN) Mother Family Member Ethnicity: Non- Living Status: Still Living Hx Family Cardiac Disorders: Yes (TIA, HLD, HTN) Hx Family Endocrine Disorder: Yes (DM) Brother Family Member Ethnicity: Non- Living Status: Still Living Hx Family Cardiac Disorders: Yes (HLD, HTN) Sister Family Member Ethnicity: Non- Living Status: Still Living Hx Family Cardiac Disorders: Yes (HLD, HTN) Hx Family Endocrine Disorder: Yes (DM) Internal Medicine - H&P: Meds Trazodone HCl 150 - 300 mg PO HS 09/14/17 [History] ARIPiprazole [Abilify] 2 mg PO HS #30 tablet 10/19/17 [Rx] Cyprohepatdine [Periactin] 4 mg PO HS #30 tablet 10/19/17 [Rx] Insulin DETEMIR [Levemir] 10 unit SQ BID [id number] 10/19/17 [Rx] Insulin LISPRO [HumaLOG] 0 units SQ TIDAC vial 10/19/17 [Rx] Metoprolol [Lopressor] 25 mg PO BID tablet 10/19/17 [Rx] Simvastatin [Zocor] 10 mg PO HS tablet 10/19/17 [Rx] Ziprasidone HCl [Geodon] 20 mg PO HS #6 capsule 12/14/17 [Rx] Divalproex (12 HR) [Depakote (12 HR)] 1,000 mg PO HS 12/16/17 [History] 3 Allergy/AdvReac Type Severity Reaction Status Date / Time potassium Allergy Anaphylaxis Verified 12/16/17 20:32 Penicillins AdvReac Hives Verified 12/16/17 20:32 sodium bicarb Allergy Severe Anaphylaxis Uncoded 12/16/17 20:32 sodium chloride Allergy Severe Anaphylaxis Uncoded 12/16/17 20:32 sodium sulfide Allergy Severe Anaphylaxis Uncoded 12/16/17 20:32 peanuts Allergy Unknown Anaphylaxis Uncoded 12/16/17 20:32 Ipratropium [place] Allergy Anaphylaxis Uncoded 12/16/17 20:32 All Systems PM: A 10-system review of systems was performed and is negative for pertinent findings except as documented above in the HPI. - Constitutional Vitals: Temp Pulse Resp BP Pulse Ox 98.8 F 70 16 142/82 95 12/17/17 01:14 12/17/17 01:14 12/17/17 01:14 12/17/17 01:14 12/17/17 01:14 General appearance: Present: cooperative, mild distress, A&O X 3, pleasant, answers questions appropriately - Head Head exam: Present: normal inspection - Eye Eye exam: Present: EOMI, normal appearance - Neck Neck exam general surgery: Present: full ROM - Respiratory Respiratory exam: Present: CTAB. Absent: chest wall tenderness, respiratory distress, wheezes - Cardiovascular Cardiovascular exam: Present: RRR. Absent: diastolic murmur, systolic murmur - GI/Abdominal GI/Abdominal exam: Present: normal bowel sounds, soft, tenderness Additional comments: lower abdominal tenderness suprapubic and left lower quadrant - Extremities Exam Extremities exam: Present: warm, radial pulses palpable and symmetrical. Absent : calf tenderness, pedal edema, tenderness - Neurological Exam Neurological exam: Present: no focal deficits, strengths equal and symetr throughout, facial droop. Absent: motor sensory deficit, speech deficit Additional comments: patient has decreased strength throughout all 4 limbs but equal bilaterally. Has left sided facial droop at baseline as per patient and his fiance. - Psychiatric Psychiatric exam: Present: normal mood - Skin Skin exam: Present: dry, normal color, warm Internal Med - H&P Results - Labs CBC & Chem 7: 12/16/17 18:45 12/16/17 18:45 - Assessment and plan (1) Syncope Current Visit: Yes Status: Acute Assessment and plan: Patient presented for having multiple episodes of syncope at home. has had workup with cardiology and neurology in the past, with no clear cause of these events. His story seems to fit with an orthostatic hypotension picture, and with his high specific gravity on UA, could also be a little dehydrated. Patient also had elevated blood sugar as well, and is not compliant with his insulin. He received 2 liters of NS in the ER. Get orthostatic vitals in the morning. Telemetry overnight. Consider holter monitor at discharge as this has not been done in the past from what I can tell. Physical therapy to assess possible weakness and falls secondary to his muscular dystrophy. Consider neuro consult as patient almost describes a post ictal-like state after these events, though no witnessed seizure-like activity. Patient takes depakote at home. Qualifiers: Syncope type: unspecified Qualified Code(s): R55 - Syncope and collapse (2) Hyperglycemia Current Visit: Yes Status: Acute Assessment and plan: Patient received 10u of regular insuin in the ER, and his sugars corrected to the high 100's from 341. Patient is not compliant with his insulin. Recheck of his sugars on the floor show blood sugar of 289. Diabetes education at outpatient, as this is not available inpatient. Check A1c in the morning. (3) Diabetes mellitus Current Visit: No Status: Chronic Assessment and plan: Not compliant with medications, does not regularly check his sugars either. Basal insulin 10u now SSI low dose Check sugars ACHS. Check A1c in the AM. Qualifiers: Diabetes mellitus type: type 2 Diabetes mellitus watermelon inspector insulin use: unspecified watermelon inspector insulin use status Diabetes mellitus complication status : with unspecified complications Qualified Code(s): E11.8 - Type 2 diabetes mellitus with unspecified complications (4) Dysuria Current Visit: Yes Status: Acute Assessment and plan: UA negative for obvious infection. Has lower abdominal pain as well. CT of abdomen shows no acute abnormalities. Continue to monitor. [place] for pain as needed. (5) Muscular dystrophy Current Visit: Yes Status: Acute Assessment and plan: Chronic, could be related to his 'syncopal' episodes as he could be weak from his underlying MD disorder PT assessment in the morning. (6) Borderline personality disorder Current Visit: No Status: Chronic Assessment and plan: Patient has a diagnosis of borderline personality disorder from pervious admission. Continue to monitor (7) Bipolar disorder Current Visit: No Status: Acute Assessment and plan: Takes depakote for this at home Continue home meds. Qualifiers: Active/Remission status: in partial remission Most recent bipolar episode type: depressed Qualified Code(s): F31.75 - Bipolar disorder, in partial remission, most recent episode depressed (8) DVT prophylaxis Current Visit: Yes Status: Acute Assessment and plan: Heparin subq - Time Spent With Patient Total time spent is greater than 50% in coordination of care (as documented) at patient's floor/unit and/or counseling patient: Greater than 35 minutes
[2017-12-17] MEDS ORDERED: D5% in Water 1,000 ML IVC PRN (04:40)
[2017-12-17] MEDS ORDERED: *HR* Dextrose 50 % in Water (Syg) 50 ML SYRINGE IVP PRN (04:40)
[2017-12-17] MEDS ORDERED: Dextrose Gel 15 GM/37.5 ML TUBE PO PRN ×2 (04:40)
[2017-12-17] MEDS: *HR* Heparin 5,000 UNIT/ML VIAL SQ SCH ×2 (05:17→21:20)
[2017-12-17] MEDS: Insulin DETEMIR 100 UNIT/ML X5UNITS SQ SCH ×2 (05:17→21:17)
[2017-12-17 06:03] LABS: Mean Corpuscular HGB Conc 33.3 g/dL (31.6-35.5); Mean Corpuscular Hemoglobin 28.4 pg (28.0-33.3); Mean Corpuscular Volume 85.5 fL (83.0-100.0); Mean Platelet Volume 10.9 fL (9.4-12.4); Platelet Count 226 K/mcL (140-400); Red Blood Count 5.03 M/mcL (4.19-5.50); Red Cell Distribution Width 13.2 % (11.5-14.5)
[2017-12-17 06:05] LABS: Hemoglobin 14.3 g/dL (12.9-16.9)
[2017-12-17 06:21] LABS: BUN/Creatinine Ratio 17 (6-26); Blood Urea Nitrogen 10 mg/dL (6-20); Calcium 9.1 mg/dL (8.6-10.3); Carbon Dioxide 23 mEq/L (23-29); Chloride 106 mEq/L (98-107); Glucose 258 mg/dL (70-105); Osmolality,Calculated 290 (280-300); Potassium 3.7 mEq/L (3.5-5.1); Sodium 136 mEq/L (136-145); eGFR For Non-African Americans > 60 (> 60)
[2017-12-17 06:39] LABS: Estimated Average Glucose 255 mg/dl; Hemoglobin A1C 10.5 %
[2017-12-17] MEDS: Insulin LISPRO 300 UNITS/3 ML VIAL SQ SCH ×3 (08:01→16:31)
[2017-12-17] MEDS: *HR* HYDROcodone/Acet 5/325 mg TABLET PO PRN ×2 (12:23→21:25)
[2017-12-17] MEDS ORDERED: Gadolinium Contrast Agent (WT Based) IV PRN (15:55)
[2017-12-17] MEDS: Aspirin 81 MG TAB.CHEW PO SCH (16:30)
--- NOTE | 2017-12-17 16:32 | Electrocardiograph Report ---
[address] [address] Test Date: 2017-12-16 Pat Name: Gamaliel Villeda Department: 104 Room: [facility] Gender: M Clinical Office Technician: CARLTON : 1980 Requested By: Garret Zarate Order Number: [id number] Reading MD: Rupert Marley Measurements Intervals [place] Rate: 91 P: 18 NC: 143 QRS: 42 QRSD: 97 T: 15 QT: 330 QTc: 379 Interpretive Statements SINUS RHYTHM Electronically Signed On 12-17-2017 16:30:38 EDT by Rupert Marley
--- NOTE | 2017-12-17 21:32 | Internal Med Progress Note ---
Date of Encounter: 12/17/17 Time of Encounter: 21:32 - Assessment and plan (1) Syncope Current Visit: Yes Status: Acute Qualifiers: Syncope type: unspecified Qualified Code(s): R55 - Syncope and collapse (2) Diplopia Current Visit: Yes Status: Acute (3) Type 2 diabetes mellitus with hyperglycemia Current Visit: Yes Status: Acute Qualifiers: Diabetes mellitus long line teamster insulin use: with care home use Qualified Code( s): E11.65 - Type 2 diabetes mellitus with hyperglycemia; Z79.4 - intermediate manager ( current) use of insulin (4) MIKE (obstructive sleep apnea) Current Visit: Yes Status: Chronic (5) Psychosis Current Visit: Yes Status: Acute Qualifiers: Psychosis type: unspecified psychosis type Qualified Code(s): F29 - Unspecified psychosis not due to a substance or known physiological condition - Time Spent With Patient Total time spent is greater than 50% in coordination of care (as documented) at patient's floor/unit and/or counseling patient: 25 - 35 minutes - Subjective Interval history: .. This patient was admitted to the hospital after he had experienced 3 more syncopal episodes. Each of those was preceded by a feeling of vertigo. He did not hurt himself. He has had syncopal episodes for a couple years. He had an extensive workup from cardiology, neurology and psychiatry in the past. He feels weak and tired. It was today late afternoon, when he developed diplopia. OBJECTIVE: .. Skin: Free of rash and discoloration. Respiratory: Normal breath sounds; no crackles or wheezes. CV: Heart is regular; no gallop or murmur. GI: Abdomen is soft and not tender. There is no palpable mass or visceromegaly. Neuro: His left eyeball is deviated medially. He has normal sized pupils responding to light appropriately. He has good strength in upper and lower extremities. ASSESSMENT AND PLAN: .. Recurrent syncope. This could be psychogenic in nature. I am puzzled by his feeling of vertigo, he developed on multiple occasions recently. Today late afternoon he developed diplopia. It could be secondary to an ocular nerve palsy. I talked to neurology. They are going to evaluate him. The patient will have MRI of brain and MRA of head and neck to the evening. Type 2 diabetes mellitus, uncontrolled. His fingersticks for glucose from today are 218, 271 and 250. We will increase his dose of Levemir. We will continue when necessary Humalog. Obstructive sleep apnea. Will continue CPAP treatments. Psychosis, not otherwise specified. He was taking Abilify, Geodon and Depakote ER at home. We will restart those medications. - Constitutional Vitals: Temp Pulse Resp BP Pulse Ox 98.7 F 68 16 120/78 97 12/17/17 20:10 12/17/17 20:10 12/17/17 20:10 12/17/17 20:10 12/17/17 20:10 General appearance: Present: cooperative, mild distress, A&O X 3, pleasant, answers questions appropriately Internal Medicine: Result - Labs CBC & Chem 7: 12/17/17 05:10 12/17/17 05:10 - ABG Interpretation ABG results: PT/INR, D-dimer PT 13.1 Seconds (9.4-12.1) H 12/16/17 18:45 - Impressions Impressions Brain MRI 12/17/17 15:54 IMPRESSION: 1. Normal MRI of the brain without contrast. 2. Normal MRA of the head. 3. Normal MRA of the neck. D/ / Aleksandr Medina / Aleksandr Medina Interpreting Provider: Aleksandr Medina Head MRA 12/17/17 15:55 IMPRESSION: 1. Normal MRI of the brain without contrast. 2. Normal MRA of the head. 3. Normal MRA of the neck. D/ / Aleksandr Medina / Aleksandr Medina Interpreting Provider: Aleksandr Medina Neck MRA 12/17/17 15:55 IMPRESSION: 1. Normal MRI of the brain without contrast. 2. Normal MRA of the head. 3. Normal MRA of the neck. D/ / Aleksandr Medina / Aleksandr Medina Interpreting Provider: Aleksandr Medina Consult Discharge Plan - Plan Referrals: NONE,PCP [Primary Care Provider] -
[2017-12-18] MEDS ORDERED: Divalproex (12 HR) 500 MG TABLET PO ONE (00:27)
[2017-12-18] MEDS ORDERED: Ziprasidone 20 MG CAPSULE PO ONE (00:29)
[2017-12-18] MEDS: *HR* HYDROcodone/Acet 5/325 mg TABLET PO PRN (05:03)
[2017-12-18] MEDS: *HR* Heparin 5,000 UNIT/ML VIAL SQ SCH ×2 (05:03→17:55)
[2017-12-18] MEDS: Insulin LISPRO 300 UNITS/3 ML VIAL SQ SCH ×3 (08:13→17:56)
[2017-12-18] MEDS: Aspirin 81 MG TAB.CHEW PO SCH (08:14)
[2017-12-18] MEDS ORDERED: Insulin DETEMIR 100 UNIT/ML X5UNITS SQ SCH (09:00)
--- NOTE | 2017-12-18 15:14 | Internal Med Progress Note ---
Date of Encounter: 12/18/17 Time of Encounter: 14:12 (n) - Assessment and plan (1) Syncope Current Visit: Yes Status: Acute Assessment and plan: Unclear etiology. Patient has chronic and recurrent syncope attack and had cardiology and neurology extensive workup in the past with your cause. MRI and MRA brain and neck with no acute finding. Neurologist on board. Will discuss discharge plans with him for possible EEG. We will repeat orthostatic blood pressure. No witnessed seizure activity. Patient takes Depakote at home. Qualifiers: Syncope type: unspecified Qualified Code(s): R55 - Syncope and collapse (2) Diplopia Current Visit: Yes Status: Acute Assessment and plan: Result. MRI/MRA head and neck normal. (3) Dysuria Current Visit: Yes Status: Acute Assessment and plan: Better. UA negative. CT abdomen with no acute finding. (4) Muscular dystrophy Current Visit: Yes Status: Acute Assessment and plan: Chronic. Is stable. Neurologist on board with no further recommendation. (5) Psychosis Current Visit: Yes Status: Acute Assessment and plan: . Continue home medicine. No suicidal or homicidal thoughts or plan. Qualifiers: Psychosis type: unspecified psychosis type Qualified Code(s): F29 - Unspecified psychosis not due to a substance or known physiological condition (6) Type 2 diabetes mellitus with hyperglycemia Current Visit: Yes Status: Acute Assessment and plan: SSI medium dose, Accu-Chek, diabetic diet, basal insulin. Qualifiers: Diabetes mellitus roasterman insulin use: with group home use Qualified Code( s): E11.65 - Type 2 diabetes mellitus with hyperglycemia; Z79.4 - custodial ( current) use of insulin (7) DVT prophylaxis Current Visit: Yes Status: Acute Assessment and plan: Heparin subcutaneous - Time Spent With Patient Total time spent is greater than 50% in coordination of care (as documented) at patient's floor/unit and/or counseling patient: - Subjective Interval history: Still complained of dizziness but denies any diplopia. Fiance at bedside. Review of the report. Denies fever chills nausea headache, tingling numbness vomiting chest pain shortness of breath or abdominal pain urinary bowel complaint - Constitutional Vitals: Temp Pulse Resp BP Pulse Ox 98.3 F 69 17 126/73 97 12/18/17 11:28 12/18/17 11:28 12/18/17 11:28 12/18/17 11:28 12/18/17 11:28 General appearance: Present: cooperative, A&O X 3, pleasant, answers questions appropriately Exam: General appearance: No acute distress, A&O X 3 Head exam: Atraumatic Eye exam: EOMI, PERRLA ENT exam: Moist oral mucosa Neck nontender, supple Respiratory exam: Clear to auscultation bilaterally Cardiovascular exam: Regular rate and rhythm, no systolic murmur Abdominal exam: Soft, nontender, nondistended, positive bowel sounds Extremities exam: No calf tenderness, no pedal edema Present: Skin-no rash, warm, dry, intact Neurological exam: Alert, awake, oriented 3, CN II-XII intact, no focal deficits. No facial droop. Normal speech. Otherwise normal gait complain of dizziness when he walks. Romberg sign negative Internal Medicine: Result - Labs CBC & Chem 7: 12/17/17 05:10 12/17/17 05:10 - ABG Interpretation ABG results: PT/INR, D-dimer PT 13.1 Seconds (9.4-12.1) H 12/16/17 18:45 - Impressions Impressions Brain MRI 12/17/17 15:54 IMPRESSION: 1. Normal MRI of the brain without contrast. 2. Normal MRA of the head. 3. Normal MRA of the neck. D/ / Aleksandr Medina / Aleksandr Medina Interpreting Provider: Aleksandr Medina Head MRA 12/17/17 15:55 IMPRESSION: 1. Normal MRI of the brain without contrast. 2. Normal MRA of the head. 3. Normal MRA of the neck. D/ / Aleksandr Medina / Aleksandr Medina Interpreting Provider: Aleksandr Medina Neck MRA 12/17/17 15:55 IMPRESSION: 1. Normal MRI of the brain without contrast. 2. Normal MRA of the head. 3. Normal MRA of the neck. D/ / Aleksandr Medina / Aleksandr Medina Interpreting Provider: Aleksandr Medina Consult Discharge Plan - Plan Referrals: NONE,PCP [Primary Care Provider] -
--- NOTE | 2017-12-18 15:27 | Neurology - Consult Note ---
Date of Encounter: 12/18/17 Time of Encounter: 10:50 Assessment and Plan (1) Syncope Current Visit: Yes Status: Acute pt admited with syncope, had multiple episodes as per description does not sound like a typical seizures. Exam is also nonfocal slightly functional. Already had an MRI of the brain as well as MRA a of the head and neck all negative. I really doubt that these are seizures if he continued to have them he can do EEG as an outpatient video long-term EEG monitoring. No indication to start on any seizure medication. Suggest increasing fluid intake should be up in the chair physical therapy evaluation. 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 Patient asking that he need to be transferred explained to him that I did not see any urgency or any acute symptoms and finding that he need to be transferred. Indeed if he has myotonic dystrophy he has not most of his life and there is nothing acute at this time that would require any urgent transfer and at the same time unfortunately there is no cure off it either. Also recommend getting an echocardiogram and workup for cardiogenic syncope. Qualifiers: Syncope type: unspecified Qualified Code(s): R55 - Syncope and collapse History of Present Illness HPI: Mr. Villeda is a 37 year old male with multiple psychosomatic symptoms as well as questionable history of muscular dystrophy has not been following up with neurology admitted with syncopal events. According to the records that he passed out 3 times on the day of admission. Once while he was going to the restroom, once when he was getting up from the toilet, and one time coming from the bathroom. He also says he has had episodes of blacking out when he is just laying on the bed. prior to each episode he says he gets a pounding in his head and nausea. After each episode he feels very weak and fatigued. He has had similar episodes like this for some time, with extensive workup from cardiology, neurology and psychiatry. He think he has an history of muscular dystrophy, he did have a family history of including his brother and sister who has been diagnosed but he was seen at [facility] several years ago but did not have any follow-up appointment with them he is not able to recall that he has any then from testing done or not. He continued to have headaches he just woke up and stated that he is passing out or at least feels like that he is going to pass out while he is laying down Patient remained alert awake and oriented Patient already had an MRI of the brain and that has been negative Past Med Surg Social Fam HX - Past Medical History Medical history: arthritis, asthma, COPD, diabetes, hyperlipidemia, hypertension Additional medical history: sleep apnea uses oxygen 2L at HS Psychiatric history: depression, prior suicide attempt, previous psychiatric hospitalization - Past Surgical History Surgical History: cholecystectomy Additional surgical history: rt eye surgery in 2004 - Social History Smoking Status: Former smoker Packs per day: 0.25 Smokeless Tobacco Status: No Alcohol use: occasionally Drug use: none - Family History Father Family Member Ethnicity: Non- Living Status: Hx Family Cardiac Disorders: Yes (Stroke, [place], HLD, HTN) Mother Family Member Ethnicity: Non- Living Status: Still Living Hx Family Cardiac Disorders: Yes (TIA, HLD, HTN) Hx Family Endocrine Disorder: Yes (DM) Brother Family Member Ethnicity: Non- Living Status: Still Living Hx Family Cardiac Disorders: Yes (HLD, HTN) Sister Family Member Ethnicity: Non- Living Status: Still Living Hx Family Cardiac Disorders: Yes (HLD, HTN) Hx Family Endocrine Disorder: Yes (DM) Medications and Allergies Trazodone HCl 150 - 300 mg PO HS 09/14/17 [History] ARIPiprazole [Abilify] 2 mg PO HS #30 tablet 10/19/17 [Rx] Cyprohepatdine [Periactin] 4 mg PO HS #30 tablet 10/19/17 [Rx] Insulin DETEMIR [Levemir] 10 unit SQ BID [id number] 10/19/17 [Rx] Insulin LISPRO [HumaLOG] 0 units SQ TIDAC vial 10/19/17 [Rx] Metoprolol [Lopressor] 25 mg PO BID tablet 10/19/17 [Rx] Simvastatin [Zocor] 10 mg PO HS tablet 10/19/17 [Rx] Ziprasidone HCl [Geodon] 20 mg PO HS #6 capsule 12/14/17 [Rx] Divalproex (12 HR) [Depakote (12 HR)] 1,000 mg PO HS 12/16/17 [History] 3 Allergy/AdvReac Type Severity Reaction Status Date / Time potassium Allergy Anaphylaxis Verified 12/16/17 20:32 Penicillins AdvReac Hives Verified 12/16/17 20:32 sodium bicarb Allergy Severe Anaphylaxis Uncoded 12/16/17 20:32 sodium chloride Allergy Severe Anaphylaxis Uncoded 12/16/17 20:32 sodium sulfide Allergy Severe Anaphylaxis Uncoded 12/16/17 20:32 peanuts Allergy Unknown Anaphylaxis Uncoded 12/16/17 20:32 Ipratropium [place] Allergy Anaphylaxis Uncoded 12/16/17 20:32 All Systems: The remainder of the systems were reviewed and are negative Physical Examination - Vital Signs Vital Signs: Initial Vital Signs Temp Pulse Resp BP Pulse Ox 98.4 F 101 20 135/88 96 12/16/17 16:31 12/16/17 16:31 12/16/17 16:31 12/16/17 16:31 12/16/17 16:31 - Constitutional General appearance: comfortable - Neurologic Sensorimotor examination: intact Detailed motor examination: grossly full strength in all extremities (Strength is within normal limits but there is a giveaway weakness effort related) Detailed sensory examination: intact Reflex and gait examination: intact Reflexes: Biceps: 1+, Triceps: 1+, Brachioradialis: 1+, Patella: 0, Achilles: 0 Mental Status Examination: awake, alert, oriented to person, oriented to place, oriented to time, follows commands appropriately, answers questions appropriately, no agnosia, no aphasia, no aproxia Cranial nerve examination: PERRL, EOMI, visual prasad intact, corneal reflexes brisk symmetrically, sensory to face intact, mastication intact, no facial asymmetry is present, no dysarthria, hearing is intact symmetrically, soft palate elevates bilaterally upon phonation, gag reflex intact, flexes SCM and trapezius muscles symmetrically with full power, tongue protrudes midline, no atrophy or facial fasiculations present Cerebellar examination: no dysmetria Results - Laboratory Findings CBC and BMP: 12/17/17 05:10 12/17/17 05:10 Abnormal lab findings: Abnormal lab results PT 13.1 Seconds (9.4-12.1) H 12/16/17 18:45 Creatinine 0.58 mg/dL (0.70-1.30) L 12/17/17 05:10 Glucose 258 mg/dL (70-105) H 12/17/17 05:10 POC Glucose 266 mg/dL (70-99) H 12/18/17 11:31 Hemoglobin A1c 10.5 % (-5.6) H 12/17/17 05:10 Ur Specific [place] > 1.030 (1.010-1.025) H 12/16/17 21:52 Urine Glucose (UA) >=1000 mg/dL (Normal) H 12/16/17 21:52 - Diagnostic Findings Additional findings: MRI of the brain and MRA of the head and neck all has been negative Consult Discharge Plan - Plan Referrals: NONE,PCP [Primary Care Provider] -
[2017-12-18] MEDS ORDERED: *HR* Dextrose 50 % in Water (Syg) 50 ML SYRINGE IVP PRN (15:28)
[2017-12-18] MEDS ORDERED: D5% in Water 1,000 ML IVC PRN (15:28)
[2017-12-18] MEDS ORDERED: Dextrose Gel 15 GM/37.5 ML TUBE PO PRN ×2 (15:28)
[2017-12-18] MEDS ORDERED: ARIPiprazole 2 MG TABLET PO SCH (21:00)
[2017-12-18] MEDS: Insulin DETEMIR 100 UNIT/ML X5UNITS SQ SCH (21:28)
[2017-12-18] MEDS: Divalproex (12 HR) 500 MG TABLET PO SCH (21:28)
[2017-12-18] MEDS: Ziprasidone 20 MG CAPSULE PO SCH (21:28)
[2017-12-18] MEDS: Cyprohepatdine 4 MG TABLET PO SCH (21:28)
[2017-12-19] MEDS ORDERED: Acetaminophen 325 MG TABLET PO PRN (06:20)
[2017-12-19] MEDS: *HR* Heparin 5,000 UNIT/ML VIAL SQ SCH ×2 (06:25→17:08)
[2017-12-19] MEDS: Aspirin 81 MG TAB.CHEW PO SCH (08:49)
[2017-12-19] MEDS: Insulin LISPRO 300 UNITS/3 ML VIAL SQ SCH ×3 (08:49→17:06)
[2017-12-19] MEDS: Insulin DETEMIR 100 UNIT/ML X5UNITS SQ SCH ×2 (08:50→20:40)
--- NOTE | 2017-12-19 17:00 | Internal Med Progress Note ---
Date of Encounter: 12/19/17 Time of Encounter: 16:58 - Assessment and plan (1) Syncope Current Visit: Yes Status: Acute Assessment and plan: Patient is still feeling dizzy but better. Awaiting echocardiogram report to rule out underlying cardiac etiology. unclear etiology. Patient has chronic and recurrent syncope attack and had cardiology and neurology extensive workup in the past . MRI and MRA brain and neck with no acute finding. Neurologist on board and DISCHARGE to [place] after ECHO normal echo report. plans for possible exterminator helper video EEG monitoring on opd basis. normal orthostatic blood pressure. No witnessed seizure activity. Patient takes Depakote at home. Qualifiers: Syncope type: unspecified Qualified Code(s): R55 - Syncope and collapse (2) Diplopia Current Visit: Yes Status: Acute Assessment and plan: resolved. MRI/MRA head and neck normal. (3) Dysuria Current Visit: Yes Status: Acute Assessment and plan: Better. UA negative. CT abdomen with no acute finding. (4) Muscular dystrophy Current Visit: Yes Status: Acute Assessment and plan: Chronic. stable. Neurologist on board with no further recommendation. (5) Psychosis Current Visit: Yes Status: Acute Assessment and plan: Continue home medicine. No suicidal or homicidal thoughts or plan. Qualifiers: Psychosis type: unspecified psychosis type Qualified Code(s): F29 - Unspecified psychosis not due to a substance or known physiological condition (6) Type 2 diabetes mellitus with hyperglycemia Current Visit: Yes Status: Acute Assessment and plan: SSI medium dose, Accu-Chek, diabetic diet. high BGL therefore increase the basal insulin 12 units BID. Qualifiers: Diabetes mellitus exterminator helper insulin use: with exterminator helper use Qualified Code( s): E11.65 - Type 2 diabetes mellitus with hyperglycemia; Z79.4 - exterminator helper ( current) use of insulin (7) DVT prophylaxis Current Visit: Yes Status: Acute Assessment and plan: Heparin subcutaneous - Time Spent With Patient Total time spent is greater than 50% in coordination of care (as documented) at patient's floor/unit and/or counseling patient: 25 - 35 minutes - Subjective Interval history: Still complained of dizziness but denies any diplopia. Denies fever chills nausea headache, tingling numbness vomiting chest pain shortness of breath or abdominal pain urinary bowel complaint - Constitutional Vitals: Temp Pulse Resp BP Pulse Ox 98.5 F 90 16 136/84 97 12/19/17 15:49 12/19/17 15:49 12/19/17 15:49 12/19/17 15:49 12/19/17 15:49 General appearance: Present: cooperative, A&O X 3, pleasant, answers questions appropriately Exam: General appearance: No acute distress, A&O X 3 Head exam: Atraumatic Eye exam: EOMI, PERRLA ENT exam: Moist oral mucosa Neck nontender, supple Respiratory exam: Clear to auscultation bilaterally Cardiovascular exam: Regular rate and rhythm, no systolic murmur Abdominal exam: Soft, nontender, nondistended, positive bowel sounds Extremities exam: No calf tenderness, no pedal edema Present: Skin-no rash, warm, dry, intact Neurological exam: Alert, awake, oriented 3, CN II-XII intact, no focal deficits. No facial droop. Normal speech. Normal gait. Romberg sign negative Internal Medicine: Result - Labs CBC & Chem 7: 12/17/17 05:10 12/17/17 05:10 - ABG Interpretation ABG results: PT/INR, D-dimer PT 13.1 Seconds (9.4-12.1) H 12/16/17 18:45 Consult Discharge Plan - Plan Referrals: NONE,PCP [Primary Care Provider] -
[2017-12-19] MEDS: Ziprasidone 20 MG CAPSULE PO SCH (20:39)
[2017-12-19] MEDS: Cyprohepatdine 4 MG TABLET PO SCH (20:39)
[2017-12-19] MEDS: Divalproex (12 HR) 500 MG TABLET PO SCH (20:39)
[2017-12-20] MEDS: *HR* Heparin 5,000 UNIT/ML VIAL SQ SCH ×2 (05:32→17:09)
[2017-12-20] MEDS: Insulin DETEMIR 100 UNIT/ML X5UNITS SQ SCH ×2 (08:21→21:07)
[2017-12-20] MEDS: Aspirin 81 MG TAB.CHEW PO SCH (08:21)
[2017-12-20] MEDS: Insulin LISPRO 300 UNITS/3 ML VIAL SQ SCH ×3 (08:22→17:09)
--- NOTE | 2017-12-20 11:24 | Neurology Progress Note ---
Date of Encounter: 12/20/17 Time of Encounter: 07:30 Assessment and Plan (1) Syncope Current Visit: Yes Status: Acute pt admited with syncope, had multiple episodes as per description does not sound like a typical seizures. Exam is also nonfocal slightly functional. Already had an MRI of the brain as well as MRA a of the head and neck all negative. I really doubt that these are seizures if he continued to have them he can do EEG as an outpatient video long-term EEG monitoring. No indication to start on any seizure medication. Suggest increasing fluid intake should be up in the chair physical therapy evaluation. 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 Patient asking that he need to be transferred explained to him that I did not see any urgency or any acute symptoms and finding that he need to be transferred. Indeed if he has myotonic dystrophy he has not most of his life and there is nothing acute at this time that would require any urgent transfer and at the same time unfortunately there is no cure off it either. Also recommend getting an echocardiogram and workup for cardiogenic syncope. recommendations: Focal findings on neurological examination I suggested that patient should be up in the chair with lights on. He need to increase ambulation otherwise he continued to be dizzy PT consult to increase ambulation If echo is negative okay to discharge from neurology standpoint with follow-up at [facility] for presumed diagnosis of dystrophy Qualifiers: Syncope type: unspecified Qualified Code(s): R55 - Syncope and collapse Subjective Interval history: Patient seen as an follow-up he continued to complain of dizziness and lightheadedness, I just woke him up and when I asked him he said that he is dizzy and lightheaded even if he is laying down in the bed and sleeping No other focal findings on exam Objective - Constitutional Vitals: Temp Pulse Resp BP Pulse Ox 97.8 F 78 16 117/88 96 12/20/17 07:08 12/20/17 07:08 12/20/17 07:08 12/20/17 07:08 12/20/17 07:08 - Neurological Exam Sensorimotor examination: Present: intact Motor Examination: Present: grossly full strength in all extremities (Strength is within normal limits but there is a giveaway weakness effort related) Sensation intact: Present: intact Reflex and gait examination: intact Mental Status Examination: Present: awake, alert, oriented to person, oriented to place, oriented to time, follows commands appropriately, answers questions appropriately, no agnosia, no aphasia, no aproxia Cranial nerve examination: Present: PERRL, EOMI, visual prasad intact, corneal reflexes brisk symmetrically, sensory to face intact, mastication intact, no facial asymmetry is present, no dysarthria, hearing is intact symmetrically, soft palate elevates bilaterally upon phonation, gag reflex intact, flexes SCM and trapezius muscles symmetrically with full power, tongue protrudes midline, no atrophy or facial fasiculations present Cerebellar examination: Present: no dysmetria Results - Laboratory Findings CBC and BMP: 12/17/17 05:10 12/17/17 05:10 Abnormal lab findings: Abnormal lab results PT 13.1 Seconds (9.4-12.1) H 12/16/17 18:45 Creatinine 0.58 mg/dL (0.70-1.30) L 12/17/17 05:10 Glucose 258 mg/dL (70-105) H 12/17/17 05:10 POC Glucose 267 mg/dL (70-99) H 12/19/17 15:53 Hemoglobin A1c 10.5 % (-5.6) H 12/17/17 05:10 Ur Specific [place] > 1.030 (1.010-1.025) H 12/16/17 21:52 Urine Glucose (UA) >=1000 mg/dL (Normal) H 12/16/17 21:52 Consult Discharge Plan - Plan Referrals: Harmony Mcdaniel MD [Non-Partnered Physician] - 12/28/17 1:30 pm
--- NOTE | 2017-12-20 13:03 | Discharge Summary ---
- NOTES TO OUTPATIENT PROVIDER Notes to Outpatient Provider: Follow-up with [facility]-muscular grnyqcrcq-2-6 weeks. Follow with neurologist Dr. Crow-in 2 weeks. Follow with PCP within one week Date of Encounter: 12/20/17 Time of Encounter: 13:00 - Discharge Diagnosis (1) Syncope Priority: Primary Status: Acute Assessment and Plan: Patient has chronic and recurrent syncope attack and had cardiology and neurology extensive workup in the past . During this admission MRI and MRA brain and neck with no acute finding. Echocardiogram with no acute finding. Neurologist was consulted and evaluated the patient and okay to discharge from neuro standpoint with follow-up appointment. The patient continued to have same symptoms then he may need long-term video monitoring EEC that can be done outpatient. Patient also needs to follow with neurology department on OPD basis at [facility] for muscular dystrophy. normal orthostatic blood pressure. No witnessed seizure activity during his stay in the hospital. Qualifiers: Syncope type: unspecified Qualified Code(s): R55 - Syncope and collapse (2) Diplopia Priority: Primary Status: Acute Assessment and Plan: resolved completely. MRI/MRA head and neck and echocardiogram normal. No concern for acute CVA at this time (3) Muscular dystrophy Priority: Secondary Status: Acute Assessment and Plan: Chronic. stable. Follow-up [facility] (4) Psychosis Priority: Secondary Status: Acute Assessment and Plan: Stable. Continue home medicine. No suicidal or homicidal thoughts or plan. Qualifiers: Psychosis type: unspecified psychosis type Qualified Code(s): F29 - Unspecified psychosis not due to a substance or known physiological condition (5) Type 2 diabetes mellitus with hyperglycemia Priority: Secondary Status: Acute Assessment and Plan: High blood glucose level therefore will discharge patient on Levemir 15 units subcutaneous twice a day increased dose compared to home that he was taking 10 unit twice a day. Further diabetes management as per PCP. Qualifiers: Diabetes mellitus skilled nursing insulin use: with skilled nursing use Qualified Code( s): E11.65 - Type 2 diabetes mellitus with hyperglycemia; Z79.4 - long term care pharmacist ( current) use of insulin Hospital course: Mr. Villeda is a 37 year old male patient got admitted with a complaint of syncope, dizziness, diplopia. A stroke workup was done and ruled out after having normal report of MRI MRA brain and neck and echocardiogram. Neurologist was consulted and it was okay to discharge patient home with outpatient follow- up. Blood glucose was high therefore will increase home Levemir dose 15 units twice a day and further monitoring as per PCP. Patient did not had any syncope , fall, seizure activity during stay in the hospital. At the time of discharge patient is able to ambulate, tolerating oral diet and hemodynamically stable. Discussed discharge plan with patient and girlfriend. Discharge discussed with: patient - Time Spent with Patient Total time spent providing and/or coordinating discharge services: - Discharge Medications Home Medications: Trazodone HCl 150 - 300 mg PO HS 09/14/17 [History] ARIPiprazole [Abilify] 2 mg PO HS #30 tablet 10/19/17 [Rx] Cyprohepatdine [Periactin] 4 mg PO HS #30 tablet 10/19/17 [Rx] Metoprolol [Lopressor] 25 mg PO BID tablet 10/19/17 [Rx] Simvastatin [Zocor] 10 mg PO HS tablet 10/19/17 [Rx] Ziprasidone HCl [Geodon] 20 mg PO HS #6 capsule 12/14/17 [Rx] Divalproex (12 HR) [Depakote (12 HR)] 1,000 mg PO HS 12/16/17 [History] Insulin DETEMIR [Levemir] 15 unit SQ BID #0 [id number] 12/20/17 [Rx] Allergies/Adverse Reactions: 3 Allergy/AdvReac Type Severity Reaction Status Date / Time potassium Allergy Anaphylaxis Verified 12/16/17 20:32 Penicillins AdvReac Hives Verified 12/16/17 20:32 sodium bicarb Allergy Severe Anaphylaxis Uncoded 12/16/17 20:32 sodium chloride Allergy Severe Anaphylaxis Uncoded 12/16/17 20:32 sodium sulfide Allergy Severe Anaphylaxis Uncoded 12/16/17 20:32 peanuts Allergy Unknown Anaphylaxis Uncoded 12/16/17 20:32 Ipratropium [place] Allergy Anaphylaxis Uncoded 12/16/17 20:32 Date of admission: 12/17/17 15:07 Primary care physician: PCP NONE Consults: 12/17/17 18:11 Consult to Neurology [CONS] Routine Consulting Provider: [facility] Reason for Consult: Diplopia/vertigo Time Notified: 17:30 Call Completed: Yes - Constitutional Vitals: Temp Pulse Resp BP Pulse Ox 98.4 F 73 16 115/82 96 12/20/17 11:13 12/20/17 11:13 12/20/17 11:13 12/20/17 11:13 12/20/17 11:13 General appearance: Present: cooperative, A&O X 3, pleasant, answers questions appropriately Exam: General appearance: No acute distress, A&O X 3, obese Head exam: Atraumatic Eye exam: EOMI, PERRLA ENT exam: Moist oral mucosa Neck nontender, supple Respiratory exam: Clear to auscultation bilaterally Cardiovascular exam: Regular rate and rhythm, no systolic murmur Abdominal exam: Soft, nontender, nondistended, positive bowel sounds Extremities exam: No calf tenderness, no pedal edema Present: Skin-no rash, warm, dry, intact Neurological exam: Alert, awake, oriented 3, CN II-XII intact, no focal deficits. No facial droop. Normal speech. Normal gait. Romberg sign negative - Patient Status Disposition: Home, Self-Care Condition: Good Overall status at discharge: patient is back to baseline - Discharge Instructions Follow Up With: Harmony Mcdaniel MD [Non-Partnered Physician] - 12/28/17 1:30 pm - Diet and Activity Activity: increase activity as tolerated Diet: diabetic diet, low fat, low cholesterol, low salt diet
[2017-12-20] MEDS: Ziprasidone 20 MG CAPSULE PO SCH (21:06)
[2017-12-20] MEDS: Cyprohepatdine 4 MG TABLET PO SCH (21:06)
[2017-12-20] MEDS: Divalproex (12 HR) 500 MG TABLET PO SCH (21:06)
[2017-12-21] MEDS: *HR* Heparin 5,000 UNIT/ML VIAL SQ SCH ×2 (05:40→17:13)
[2017-12-21] MEDS: Aspirin 81 MG TAB.CHEW PO SCH (09:32)
[2017-12-21] MEDS: Insulin DETEMIR 100 UNIT/ML X5UNITS SQ SCH ×2 (09:32→21:57)
[2017-12-21] MEDS: Insulin LISPRO 300 UNITS/3 ML VIAL SQ SCH ×3 (09:32→17:14)
--- NOTE | 2017-12-21 16:37 | Internal Med Progress Note ---
Hospitalist Progress Note - Encounter Date of Encounter: 12/21/17 Time of Encounter: 16:35 - Subjective Interval History: Still complained of dizziness otherwise no complaint Denies fever chills nausea headache, tingling numbness vomiting chest pain shortness of breath - Exam Vitals: Temp Pulse Resp BP Pulse Ox 98.4 F 83 16 109/70 95 12/21/17 15:26 12/21/17 15:26 12/21/17 15:26 12/21/17 15:26 12/21/17 15:26 Exam: General appearance: No acute distress PERRLA EOMI Respiratory exam: Clear to auscultation bilaterally Cardiovascular exam: Regular rate and rhythm, no systolic murmur Neurological exam: Alert, awake, oriented 3, CN II-XII intact, no focal deficits. No facial droop. Normal speech. Normal gait. Romberg sign negative , motor 5 x 5 in all 4 extremities - Assessment and Plan (1) Syncope Current Visit: Yes Status: Acute Assessment and Plan: Patient has chronic and recurrent syncope attack and had cardiology and neurology extensive workup in the past . During this admission MRI and MRA brain and neck with no acute finding. Echocardiogram with no acute finding. Neurologist was consulted and evaluated the patient and okay to discharge from neuro standpoint with follow-up appointment. The patient continued to have same symptoms then he may need long-term video monitoring EEC that can be done outpatient. Patient also needs to follow with neurology department on OPD basis at [facility] for muscular dystrophy. normal orthostatic blood pressure. No witnessed seizure activity during his stay in the hospital. (2) Diplopia Current Visit: Yes Status: Acute Assessment and Plan: resolved completely. MRI/MRA head and neck and echocardiogram normal. No concern for acute CVA at this time (3) Muscular dystrophy Current Visit: Yes Status: Acute Assessment and Plan: Chronic. stable. Follow-up [facility] neurology clinic (4) Psychosis Current Visit: Yes Status: Acute Assessment and Plan: Stable. Could be also contributing for present symptoms. Continue home medicine. No suicidal or homicidal thoughts or plan. (5) Type 2 diabetes mellitus with hyperglycemia Current Visit: Yes Status: Acute Assessment and Plan: High blood glucose level therefore increased Levemir 15 units subcutaneous twice a day Further diabetes management as per PCP. (6) Goals of care, counseling/discussion Current Visit: Yes Status: Acute Assessment and Plan: There was planned to discharge patient yesterday and discharge summary was done but physiotherapist recommended inpatient rehabilitation based on the concern patient is home alone most of the time and risk of fall. lime kiln worker helper tried to contact facilities but could not get accepted. No change in plan and treatment today and waiting for placement. Possible discharge tomorrow. - Time Spent with Patient Total time spent is greater than 50% in coordination of care (as documented) at patient's floor/unit and/or counseling patient: less than 15 minutes Internal Medicine: Result - Labs CBC & Chem 7: 12/17/17 05:10 12/17/17 05:10 - ABG Interpretation ABG results: PT/INR, D-dimer PT 13.1 Seconds (9.4-12.1) H 12/16/17 18:45 Consult Discharge Plan - Plan Instructions: Chest Pain (DC), Syncope (DC), Bipolar Disorder (DC), Depression (DC), Diabetes Mellitus Type 2 in Adults (DC), Chronic Obstructive Pulmonary Disease (DC), Chronic Hypertension (DC) Referrals: Harmony Mcdaniel MD [Non-Partnered Physician] - 12/28/17 1:30 pm (1) Syncope Qualifiers: Syncope type: unspecified Qualified Code(s): R55 - Syncope and collapse (4) Psychosis Qualifiers: Psychosis type: unspecified psychosis type Qualified Code(s): F29 - Unspecified psychosis not due to a substance or known physiological condition (5) Type 2 diabetes mellitus with hyperglycemia Qualifiers: Diabetes mellitus prison insulin use: with prison use Qualified Code(s) : E11.65 - Type 2 diabetes mellitus with hyperglycemia; Z79.4 - assisted ( current) use of insulin
[2017-12-21] MEDS: Divalproex (12 HR) 500 MG TABLET PO SCH (21:56)
[2017-12-21] MEDS: Cyprohepatdine 4 MG TABLET PO SCH (21:56)
[2017-12-21] MEDS: Ziprasidone 20 MG CAPSULE PO SCH (21:56)
[2017-12-22] MEDS: *HR* Heparin 5,000 UNIT/ML VIAL SQ SCH ×2 (06:40→18:03)
[2017-12-22] MEDS: Insulin LISPRO 300 UNITS/3 ML VIAL SQ SCH ×3 (09:43→18:02)
[2017-12-22] MEDS: Aspirin 81 MG TAB.CHEW PO SCH (09:44)
[2017-12-22] MEDS: Insulin DETEMIR 100 UNIT/ML X5UNITS SQ SCH (09:45)
--- NOTE | 2017-12-22 16:19 | Internal Med Progress Note ---
Hospitalist Progress Note - Encounter Date of Encounter: 12/22/17 Time of Encounter: 16:17 - Subjective Interval History: Still complained of dizziness otherwise no new complaint. Blood glucose running slight high Denies fever chills nausea headache, tingling numbness vomiting chest pain shortness of breath - Exam Vitals: Temp Pulse Resp BP Pulse Ox 98.5 F 82 16 111/71 96 12/22/17 15:03 12/22/17 15:03 12/22/17 15:03 12/22/17 15:03 12/22/17 15:03 Exam: General appearance: No acute distress, A&O X 3 Head exam: Atraumatic Eye exam: EOMI, PERRLA ENT exam: Moist oral mucosa Neck nontender, supple Respiratory exam: Clear to auscultation bilaterally Cardiovascular exam: Regular rate and rhythm, no systolic murmur Abdominal exam: Soft, nontender, nondistended, positive bowel sounds Extremities exam: No calf tenderness, no pedal edema Present: Skin-no rash, warm, dry, intact Neurological exam: Alert, awake, oriented 3, CN II-XII intact, no focal deficits. No facial droop. Normal speech. Normal gait. Romberg sign negative - Assessment and Plan (1) Syncope Current Visit: Yes Status: Acute Assessment and Plan: Patient has chronic and recurrent syncope attack and had cardiology and neurology extensive workup in the past . During this admission MRI and MRA brain and neck with no acute finding. Echocardiogram with no acute finding. Neurologist was consulted and evaluated the patient and okay to discharge from neuro standpoint with follow-up appointment. The patient continued to have same symptoms then he may need long-term video monitoring EEC that can be done outpatient. Patient also needs to follow with neurology department on OPD basis at [facility] for muscular dystrophy. normal orthostatic blood pressure. No witnessed seizure activity during his stay in the hospital. Awaiting placement for inpatient rehabilitation based on PT recommendation. cattle care worker on case for discharge plan in process (2) Diplopia Current Visit: Yes Status: Acute Assessment and Plan: resolved completely. MRI/MRA head and neck and echocardiogram normal. No concern for acute CVA at this time (3) Muscular dystrophy Current Visit: Yes Status: Acute Assessment and Plan: Chronic. stable. Follow-up [facility] neurology clinic (4) Psychosis Current Visit: Yes Status: Acute Assessment and Plan: Stable. Could be also contributing for present symptoms. Continue home medicine. No suicidal or homicidal thoughts or plan. (5) Type 2 diabetes mellitus with hyperglycemia Current Visit: Yes Status: Acute Assessment and Plan: High blood glucose level therefore increased Levemir 15 units subcutaneous twice a day Further diabetes management as per PCP. (6) Goals of care, counseling/discussion Current Visit: Yes Status: Acute Assessment and Plan: There was planned to discharge patient on 12/20/2017 and discharge summary was done but physiotherapist recommended inpatient rehabilitation based on the concern patient is home alone most of the time and risk of fall. cattle care worker tried to contact facilities but could not get accepted. Still awaiting for placement. (7) DVT prophylaxis Current Visit: Yes Status: Acute Assessment and Plan: Patient is ambulating - Time Spent with Patient Total time spent is greater than 50% in coordination of care (as documented) at patient's floor/unit and/or counseling patient: less than 15 minutes Plan of Care Discussed with: social work Internal Medicine: Result - Labs CBC & Chem 7: 12/17/17 05:10 12/17/17 05:10 - ABG Interpretation ABG results: PT/INR, D-dimer PT 13.1 Seconds (9.4-12.1) H 12/16/17 18:45 Consult Discharge Plan - Plan Instructions: Chest Pain (DC), Syncope (DC), Bipolar Disorder (DC), Depression (DC), Diabetes Mellitus Type 2 in Adults (DC), Chronic Obstructive Pulmonary Disease (DC), Chronic Hypertension (DC) Referrals: Harmony Mcdaniel MD [Non-Partnered Physician] - 12/28/17 1:30 pm (1) Syncope Qualifiers: Syncope type: unspecified Qualified Code(s): R55 - Syncope and collapse (4) Psychosis Qualifiers: Psychosis type: unspecified psychosis type Qualified Code(s): F29 - Unspecified psychosis not due to a substance or known physiological condition (5) Type 2 diabetes mellitus with hyperglycemia Qualifiers: Diabetes mellitus senior care insulin use: with lobsterman use Qualified Code(s) : E11.65 - Type 2 diabetes mellitus with hyperglycemia; Z79.4 - prison ( current) use of insulin
[2017-12-22] MEDS ORDERED: Insulin DETEMIR 100 UNIT/ML X5UNITS SQ SCH (21:00)
[2017-12-22] MEDS: Divalproex (12 HR) 500 MG TABLET PO SCH (21:19)
[2017-12-22] MEDS: Cyprohepatdine 4 MG TABLET PO SCH (21:19)
[2017-12-22] MEDS: Ziprasidone 20 MG CAPSULE PO SCH (21:19)
[2017-12-23] MEDS: *HR* Heparin 5,000 UNIT/ML VIAL SQ SCH (06:58)
[2017-12-23] MEDS ORDERED: Insulin DETEMIR 100 UNIT/ML X5UNITS SQ SCH (08:15)
--- NOTE | 2017-12-23 10:38 | Internal Med Progress Note ---
Hospitalist Progress Note - Encounter Date of Encounter: 12/23/17 Time of Encounter: 10:36 - Subjective Interval History: Still complained of dizziness otherwise no new complaint. Blood glucose better but still running slight high Denies fever chills nausea headache, tingling numbness vomiting chest pain shortness of breath - Exam Vitals: Temp Pulse Resp BP Pulse Ox 97.9 F 77 16 118/91 97 12/23/17 06:41 12/23/17 06:41 12/23/17 06:41 12/23/17 06:41 12/23/17 06:41 Exam: General appearance: No acute distress, A&O X 3 Respiratory exam: Clear to auscultation bilaterally Cardiovascular exam: Regular rate and rhythm, no systolic murmur Abdominal exam: Soft, nontender, nondistended, positive bowel sounds Neurological exam: Grossly intact - Assessment and Plan (1) Syncope Current Visit: Yes Status: Acute Assessment and Plan: Patient has chronic and recurrent syncope attack and had cardiology and neurology extensive workup in the past . During this admission MRI and MRA brain and neck with no acute finding. Echocardiogram with no acute finding. Neurologist was consulted and evaluated the patient and okay to discharge from neuro standpoint with follow-up appointment. The patient continued to have same symptoms then he may need long-term video monitoring EEC that can be done outpatient. Patient also needs to follow with neurology department on OPD basis at [facility] for muscular dystrophy. normal orthostatic blood pressure. No witnessed seizure activity during his stay in the hospital. Awaiting placement for inpatient rehabilitation based on PT recommendation. munitions factory worker on case for discharge plan in process (2) Diplopia Current Visit: Yes Status: Acute (3) Muscular dystrophy Current Visit: Yes Status: Acute (4) Psychosis Current Visit: Yes Status: Acute (5) Type 2 diabetes mellitus with hyperglycemia Current Visit: Yes Status: Acute Assessment and Plan: High blood glucose level therefore increased Levemir 18 units subcutaneous twice a day. (6) Goals of care, counseling/discussion Current Visit: Yes Status: Acute Assessment and Plan: There was planned to discharge patient on 12/20/2017 and discharge summary was done but physiotherapist recommended inpatient rehabilitation based on the concern patient is home alone most of the time and risk of fall. munitions factory worker tried to contact facilities but could not get accepted. Still awaiting for placement. (7) DVT prophylaxis Current Visit: Yes Status: Acute Assessment and Plan: Patient is ambulating - Time Spent with Patient Total time spent is greater than 50% in coordination of care (as documented) at patient's floor/unit and/or counseling patient: less than 15 minutes Plan of Care Discussed with: social work Internal Medicine: Result - Labs CBC & Chem 7: 12/17/17 05:10 12/17/17 05:10 - ABG Interpretation ABG results: PT/INR, D-dimer PT 13.1 Seconds (9.4-12.1) H 12/16/17 18:45 Consult Discharge Plan - Plan Instructions: Chest Pain (DC), Syncope (DC), Bipolar Disorder (DC), Depression (DC), Diabetes Mellitus Type 2 in Adults (DC), Chronic Obstructive Pulmonary Disease (DC), Chronic Hypertension (DC) Referrals: Harmony Mcdaniel MD [Non-Partnered Physician] - 12/28/17 1:30 pm (1) Syncope Qualifiers: Syncope type: unspecified Qualified Code(s): R55 - Syncope and collapse (4) Psychosis Qualifiers: Psychosis type: unspecified psychosis type Qualified Code(s): F29 - Unspecified psychosis not due to a substance or known physiological condition (5) Type 2 diabetes mellitus with hyperglycemia Qualifiers: Diabetes mellitus exterminator insulin use: with [facility] use Qualified Code(s) : E11.65 - Type 2 diabetes mellitus with hyperglycemia; Z79.4 - manager long term care ( current) use of insulin
[2017-12-23] MEDS: Aspirin 81 MG TAB.CHEW PO SCH (10:43)
[2017-12-23] MEDS: Insulin LISPRO 300 UNITS/3 ML VIAL SQ SCH ×3 (10:44→17:05)
--- NOTE | 2017-12-23 13:33 | Event Note ---
Date of Encounter: 12/23/17 Time of Encounter: 13:32 [facility] Addendum has been made in previous discharge summary done on 12/20/2017
--- NOTE | 2017-12-23 13:56 | Physician Discharge Referral ---
ExtendedCare Referral Info Transfer To: [facility] Institutional Level of Care: Skilled - Diagnosis (1) Syncope Priority: Primary Status: Acute (2) Diplopia Priority: Primary Status: Acute (3) Muscular dystrophy Priority: Secondary Status: Acute (4) Psychosis Priority: Secondary Status: Acute (5) Type 2 diabetes mellitus with hyperglycemia Priority: Primary Status: Acute Prognosis: Fair - Transfer Medications Home Medications: Trazodone HCl 150 - 300 mg PO HS 09/14/17 [History] ARIPiprazole [Abilify] 2 mg PO HS #30 tablet 10/19/17 [Rx] Cyprohepatdine [Periactin] 4 mg PO HS #30 tablet 10/19/17 [Rx] Metoprolol [Lopressor] 25 mg PO BID tablet 10/19/17 [Rx] Simvastatin [Zocor] 10 mg PO HS tablet 10/19/17 [Rx] Ziprasidone HCl [Geodon] 20 mg PO HS #6 capsule 12/14/17 [Rx] Divalproex (12 HR) [Depakote (12 HR)] 1,000 mg PO HS 12/16/17 [History] Insulin DETEMIR [Levemir] 18 unit SQ BID [id number] 12/23/17 [Rx] Allergies/Adverse Reactions: 3 Allergy/AdvReac Type Severity Reaction Status Date / Time potassium Allergy Anaphylaxis Verified 12/16/17 20:32 Penicillins AdvReac Hives Verified 12/16/17 20:32 sodium bicarb Allergy Severe Anaphylaxis Uncoded 12/16/17 20:32 sodium chloride Allergy Severe Anaphylaxis Uncoded 12/16/17 20:32 sodium sulfide Allergy Severe Anaphylaxis Uncoded 12/16/17 20:32 peanuts Allergy Unknown Anaphylaxis Uncoded 12/16/17 20:32 Ipratropium [place] Allergy Anaphylaxis Uncoded 12/16/17 20:32 - Respiratory Orders None Smoking Cessation: Smoking cessation has been advised. For more information, call the [place] Tobacco Quit Line at 0-943-BEMH-NOW. - Advance Directives Code Status: Full Code - Mobility Orders Ambulate - Rehabiliation Orders Rehab Potential: Good Rehab Orders: Evaluation for Physical Therapy, Evaluation for Occupational Therapy - Diet Orders Regular (Diabetic diet) CERTIFICATION: I certify that the transfer of the above named patient to an Extended Care Facility is necessary for the continuing treatment of the diagnosis listed. The above information is true and accurate reflection of patient's current condition. Confidential - Redisclosure prohibited without a patient's written consent.
[2017-12-23 15:15] VITALS: BP 118/79
== END 2017-12-23 18:50 | DRG 312 ==
LOC: EMEROO 16:18 → 3NENU 16:18 → SUATTDRO 12-17 00:06 → 3NENU 12-17 01:05 → 2NENU 12-19 15:24
PROVIDERS: ADMIT Internal Medicine; ATTEND Internal Medicine

== ENCOUNTER 2018-02-13 19:54 | Observation (INO) ==
[2018-02-13] MEDS ORDERED: Ondansetron 4 MG/2 ML VIAL IVP ONE (20:50)
--- NOTE | 2018-02-13 20:50 | Emergency Department Note ---
Disposition Clinical Impression: RLQ abdominal pain, Abnormal finding on CT scan Disposition: Admitted As Inpatient Condition: Fair Time of Disposition: 00:47 Abdominal Pain HPI - General Chief Complaint: ED Abdominal Pain Stated Complaint: Abdominal pain Time Seen by Provider: 02/13/18 20:34 Source: patient Nursing Notes Reviewed: Yes Vital Signs Reviewed: Yes - History of Present Illness HPI Narrative: 37-year-old male presents from home for evaluation of right lower quadrant abdominal pain as well as melena. Right lower quadrant abdominal pain described as sharp, stabbing. Onset 2 weeks ago. Nonradiating. It is not changed in the last 2 weeks. He does have associated nausea and the pain is such that it keeps him from sleeping. Patient has several episodes of melena over last 2 days. Described as coal black, tarry. He does have decreased appetite however, is tolerating by mouth intake. PMH: Depression Abdominal surgical history: Cholecystectomy 5 years ago Family history of colon cancer. Father dx at age 38. Paternal grandfather also had colon cancer. Patient has never had a colonoscopy. ROS: Pos: as above Neg: vomiting, fever, chills, chest pain, palpitations, change in urination, constipation, hematochezia. No history of PUD or prior GI bleed. No use of ibuprophen or aspirin. No anticoagulants. Pain Scale: 7 - Related Data Home Medications Medication Instructions Recorded Confirmed Divalproex (12 HR) [Depakote (12 1,000 mg PO HS 12/16/17 02/01/18 HR)] Metoprolol Succinate [Toprol Xl] 25 mg PO BID 12/23/17 02/01/18 Cyprohepatdine [Periactin] 4 mg PO DAILY 02/01/18 02/01/18 Insulin Glargine [Lantus] 15 unit SQ BID 02/01/18 02/01/18 Simvastatin [Zocor] 10 mg PO HS 02/01/18 02/01/18 Previous Rx's Medication Instructions Recorded ARIPiprazole [Abilify] 2 mg PO HS #30 tablet 10/19/17 Ziprasidone HCl [Geodon] 20 mg PO HS #6 capsule 12/14/17 Allergies Allergy/AdvReac Type Severity Reaction Status Date / Time potassium Allergy Anaphylaxis Verified 12/16/17 20:32 Penicillins AdvReac Hives Verified 12/16/17 20:32 sodium bicarb Allergy Severe Anaphylaxis Uncoded 12/16/17 20:32 sodium chloride Allergy Severe Anaphylaxis Uncoded 12/16/17 20:32 sodium sulfide Allergy Severe Anaphylaxis Uncoded 12/16/17 20:32 peanuts Allergy Unknown Anaphylaxis Uncoded 12/16/17 20:32 Ipratropium [place] Allergy Anaphylaxis Uncoded 12/16/17 20:32 All systems ED: reviewed and negative except as stated. Review of Systems: As Per HPI Abdominal Pain PMH - Past Medical History Medical history: Reports: arthritis, asthma, COPD, diabetes, hyperlipidemia, hypertension Male Surgical History: Reports: cholecystectomy, other Psychiatric history: Reports: depression, prior suicide attempt, previous psychiatric hospitalization - Social History Smoking status: Former smoker Alcohol use: Reports: occasionally Drug use: Reports: none Physical Exam Vital Signs Reviewed General: Patient is alert, oriented, and in no acute distress. Head: atraumatic, normocephalic Eye: normal appearance, PERRL, EOMI, no scleral icterus, no conjunctival injection ENT: mucous membranes moist, normal external ear exam Neck: normal inspection, trachea midline, full ROM Chest: normal inspection, symmetric chest rise Respiratory: Good respiratory effort. Bilateral breath sounds are clear without wheezing, crackles, or rhonchi. Cardiovascular: Regular rate and rhythm. No clicks, rubs, gallops, or murmors. Normal heart sounds. Abdomen: Bowel sounds present normoactive x-4 quadrants. Abdomen is soft, nondistended. Positive Granda, Rosing, Iliopsoas, Obrutator, Heel tap. No guarding or rebound. No organomegaly noted. 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 Brown stool on gloved fingertip. FOBT submitted. Musculoskeletal: Spontaneously moving all extremities. Skin: warm, dry, intact. Neuro: Alert and oriented x4. Sensation light touch intact. Psych: Patient's affect is appropriate for situation. - General Limitations: no limitations General appearance: alert, in no apparent distress Course Course Narrative: Serum hematology is unremarkable. Patient has no anemia or leukocytosis Serum chemistries unremarkable. Patient has no elevation in hepatic or pancreatic enzymes. No hyperbilirubinemia. No elevation lactate. Normal renal function and unremarkable electrolytes. Urinalysis not clinically concerning for UTI. FOBT is negative. CT abdomen pelvis with IV contrast concerning for apple core lesion of the transverse colon. Discussed with the patient the possibility of colon cancer which cannot be confirmed at this time. Discussed the need for colonoscopy with biopsy for definitive diagnosis. He is in agreement to admission for more rapid diagnosis and management. Discussed the above with the admitting hospitalist, Dr. Aguero, who agrees to accept the patient for continued evaluation and management. Abdomen/Pelvis CT 02/13/18 21:14 IMPRESSION: 1. Possible apple-core lesion at the proximal transverse colon; more likely that this reflects an area of unusually thickened haustration, as this portion of the colon looks normal on the CT in November. Colonoscopic or barium enema correlation are considerations versus follow-up oral and rectal contrast enhanced CT or PET-CT imaging. 2. Punctate calculi inferior pole left kidney. 3. Hepatic steatosis. 4. Cholecystectomy. D/ / Vu Hardin / Vu Hardin Interpreting Provider: Vu Hardin Vital Signs Temperature 99.7 F H 02/13/18 20:00 Pulse Rate 102 02/13/18 20:00 Respiratory Rate 18 02/13/18 20:00 Blood Pressure 158/111 02/13/18 20:00 O2 Sat by Pulse Oximetry 97 02/13/18 20:00 Temperature 99.7 F H 02/13/18 20:00 Pulse Rate 90 02/13/18 22:39 Respiratory Rate 18 02/13/18 22:39 Blood Pressure 131/89 02/13/18 22:39 O2 Sat by Pulse Oximetry 98 02/13/18 22:39 Oxygen Delivery Oxygen Delivery Room Air Abdominal Pain - Lab Data Result diagrams: 02/13/18 20:50 02/13/18 20:50 Lab Results 02/13/18 02/13/18 02/13/18 Range/Units 20:50 20:50 20:57 WBC 10.9 (4.3-11.1) K/mcL RBC 5.55 H (4.19-5.50) M/mcL Hgb 16.1 (12.9-16.9) g/dL Hct 47.0 (37.5-50.1) % MCV 84.7 (83.0-100.0) fL MCH 29.0 (28.0-33.3) pg MCHC 34.3 (31.6-35.5) g/dL RDW 12.6 (11.5-14.5) % Plt Count 242 (140-400) K/mcL MPV 10.2 (9.4-12.4) fL Immature Gran % 0.3 (0-4) % Seg Neutrophils % 48.7 % Lymphocytes % 29.9 % Monocytes % 10.1 % Eosinophils % 9.8 % Basophils % 1.2 % Neutrophils # 5.3 (1.6-8.9) K/mcL Lymphocytes # 3.3 (0.6-4.6) K/mcL Monocytes # 1.1 (0.0-1.3) K/mcL Eosinophils # 1.1 H (0.0-0.6) K/mcL Basophils # 0.1 (0.0-0.2) K/mcL Sodium 135 L (136-145) mEq/L Potassium 3.6 (3.5-5.1) mEq/L Chloride 100 (98-107) mEq/L Carbon Dioxide 25 (23-29) mEq/L BUN 10 (6-20) mg/dL Creatinine 0.67 L (0.70-1.30) mg/dL Est GFR ( Amer) > 60 (> 60) Est GFR (Non-Af Amer) > 60 (> 60) BUN/Creatinine Ratio 15 (6-26) Glucose 364 H (70-105) mg/dL Calculated Osmolality 294 (280-300) Lactic Acid (0.5-2.2) mmol/L Calcium 9.3 (8.6-10.3) mg/dL Total Bilirubin 0.4 (0.3-1.0) mg/dL Direct Bilirubin 0.1 (0.0-0.2) mg/dL Indirect Bilirubin 0.3 (0.0-1.2) mg/dL AST 22 (13-39) Units/L ALT 33 (7-52) Units/L Alkaline Phosphatase 73 (34-104) Units/L Serum Total Protein 7.6 (6.4-8.9) g/dL Albumin 4.3 (3.5-5.7) g/dL Globulin 3.3 (2.4-3.5) g/dL Albumin/Globulin Ratio 1.3 (1.1-2.2) Lipase 44 (11-82) Units/L Urine Color Yellow (Yellow) Urine Clarity Clear (Clear) Urine pH 5.5 (5.0-8.0) pH Units Ur Specific [place] > 1.030 H (1.010-1.025) Urine Protein Trace (Neg-Trace) mg/dL Urine Glucose (UA) >=1000 H (Normal) mg/dL Urine Ketones Negative (Negative) mg/dL Urine Blood Negative (Negative) Urine Nitrite Negative (Negative) Urine Bilirubin Negative (Negative) Urine Urobilinogen Normal (Normal) mg/dL Ur Leukocyte Esterase Negative (Negative) Urine Microscopic RBC 0-3 (0-3) per hpf Urine Microscopic WBC 0-3 (0-3) per hpf Ur Squamous Epith Cells Few (None-Few) per lpf Urine Bacteria None Seen (None-Few) per hpf Hyaline Casts None Seen (None-Few) per lpf Ur Culture Indicated? NO (NO) Stool Occult Bld Scrn (Negative) 02/13/18 02/13/18 Range/Units 20:57 21:20 WBC (4.3-11.1) K/mcL RBC (4.19-5.50) M/mcL Hgb (12.9-16.9) g/dL Hct (37.5-50.1) % MCV (83.0-100.0) fL MCH (28.0-33.3) pg MCHC (31.6-35.5) g/dL RDW (11.5-14.5) % Plt Count (140-400) K/mcL MPV (9.4-12.4) fL Immature Gran % (0-4) % Seg Neutrophils % % Lymphocytes % % Monocytes % % Eosinophils % % Basophils % % Neutrophils # (1.6-8.9) K/mcL Lymphocytes # (0.6-4.6) K/mcL Monocytes # (0.0-1.3) K/mcL Eosinophils # (0.0-0.6) K/mcL Basophils # (0.0-0.2) K/mcL Sodium (136-145) mEq/L Potassium (3.5-5.1) mEq/L Chloride (98-107) mEq/L Carbon Dioxide (23-29) mEq/L BUN (6-20) mg/dL Creatinine (0.70-1.30) mg/dL Est GFR ( Amer) (> 60) Est GFR (Non-Af Amer) (> 60) BUN/Creatinine Ratio (6-26) Glucose (70-105) mg/dL Calculated Osmolality (280-300) Lactic Acid 2.1 (0.5-2.2) mmol/L Calcium (8.6-10.3) mg/dL Total Bilirubin (0.3-1.0) mg/dL Direct Bilirubin (0.0-0.2) mg/dL Indirect Bilirubin (0.0-1.2) mg/dL AST (13-39) Units/L ALT (7-52) Units/L Alkaline Phosphatase (34-104) Units/L Serum Total Protein (6.4-8.9) g/dL Albumin (3.5-5.7) g/dL Globulin (2.4-3.5) g/dL Albumin/Globulin Ratio (1.1-2.2) Lipase (11-82) Units/L Urine Color (Yellow) Urine Clarity (Clear) Urine pH (5.0-8.0) pH Units Ur Specific [place] (1.010-1.025) Urine Protein (Neg-Trace) mg/dL Urine Glucose (UA) (Normal) mg/dL Urine Ketones (Negative) mg/dL Urine Blood (Negative) Urine Nitrite (Negative) Urine Bilirubin (Negative) Urine Urobilinogen (Normal) mg/dL Ur Leukocyte Esterase (Negative) Urine Microscopic RBC (0-3) per hpf Urine Microscopic WBC (0-3) per hpf Ur Squamous Epith Cells (None-Few) per lpf Urine Bacteria (None-Few) per hpf Hyaline Casts (None-Few) per lpf Ur Culture Indicated? (NO) Stool Occult Bld Scrn Negative (Negative)
[2018-02-13 21:10] LABS: Basophils # 0.1 K/mcL (0.0-0.2); Basophils % 1.2 %; Eosinophils # 1.1 K/mcL (0.0-0.6); Eosinophils % 9.8 %; Hemoglobin 16.1 g/dL (12.9-16.9); Immature Granulocytes % 0.3 % (0-4); Lymphocytes # 3.3 K/mcL (0.6-4.6); Lymphocytes % 29.9 %; Mean Corpuscular HGB Conc 34.3 g/dL (31.6-35.5); Mean Corpuscular Volume 84.7 fL (83.0-100.0); Mean Platelet Volume 10.2 fL (9.4-12.4); Monocytes # 1.1 K/mcL (0.0-1.3); Monocytes % 10.1 %; Neutrophils # 5.3 K/mcL (1.6-8.9); Platelet Count 242 K/mcL (140-400); Red Blood Count 5.55 M/mcL (4.19-5.50); Red Cell Distribution Width 12.6 % (11.5-14.5); Segmented Neutrophils % 48.7 %
[2018-02-13 21:11] LABS: Bilirubin,Urine Negative (Negative); Blood,Urine Negative (Negative); Clarity,Urine Clear (Clear); Color,Urine Yellow (Yellow); Glucose,Urine (UA) >=1000 mg/dL (Normal); Ketones,Urine Negative (Negative); Leukocyte Esterase,Urine Negative (Negative); Nitrite,Urine Negative (Negative); PH,Urine 5.5 pH Units (5.0-8.0); Protein,Urine Trace mg/dL (Neg-Trace); Specific Gravity,Urine > 1.030 (1.010-1.025); Urobilinogen,Urine Normal (Normal)
[2018-02-13 21:12] LABS: Bacteria,Urine None Seen per hpf (None-Few); Hyaline Casts,Urine None Seen per lpf (None-Few); RBC,Urine 0-3 per hpf (0-3); Squamous Epithelial Cell,Urine Few per lpf (None-Few); WBC,Urine 0-3 per hpf (0-3)
[2018-02-13] MEDS ORDERED: Isovue-370 500 ML INFUS..BTL IV ONE (21:14)
--- NOTE | 2018-02-13 21:16 | Emergency Department Note ---
Disposition Clinical Impression: RLQ abdominal pain, Abnormal finding on CT scan Disposition: Admitted As Inpatient Condition: Fair Abdominal Pain HPI - General Chief Complaint: ED Abdominal Pain Stated Complaint: Abdominal pain Time Seen by Provider: 02/13/18 20:34 Source: patient - History of Present Illness Pain Scale: 7 - Related Data Home Medications Medication Instructions Recorded Confirmed Divalproex (12 HR) [Depakote (12 1,000 mg PO HS 12/16/17 02/01/18 HR)] Metoprolol Succinate [Toprol Xl] 25 mg PO BID 12/23/17 02/01/18 Cyprohepatdine [Periactin] 4 mg PO DAILY 02/01/18 02/01/18 Insulin Glargine [Lantus] 15 unit SQ BID 02/01/18 02/01/18 Simvastatin [Zocor] 10 mg PO HS 02/01/18 02/01/18 Previous Rx's Medication Instructions Recorded ARIPiprazole [Abilify] 2 mg PO HS #30 tablet 10/19/17 Ziprasidone HCl [Geodon] 20 mg PO HS #6 capsule 12/14/17 Allergies Allergy/AdvReac Type Severity Reaction Status Date / Time potassium Allergy Anaphylaxis Verified 12/16/17 20:32 Penicillins AdvReac Hives Verified 12/16/17 20:32 sodium bicarb Allergy Severe Anaphylaxis Uncoded 12/16/17 20:32 sodium chloride Allergy Severe Anaphylaxis Uncoded 12/16/17 20:32 sodium sulfide Allergy Severe Anaphylaxis Uncoded 12/16/17 20:32 peanuts Allergy Unknown Anaphylaxis Uncoded 12/16/17 20:32 Ipratropium [place] Allergy Anaphylaxis Uncoded 12/16/17 20:32 Abdominal Pain PMH - Past Medical History Medical history: Reports: arthritis, asthma, COPD, diabetes, hyperlipidemia, hypertension Male Surgical History: Reports: cholecystectomy, other Psychiatric history: Reports: depression, prior suicide attempt, previous psychiatric hospitalization - Social History Smoking status: Former smoker Alcohol use: Reports: occasionally Drug use: Reports: none Physical Exam - General Limitations: no limitations General appearance: alert, in no apparent distress Course Vital Signs Temperature 99.7 F H 02/13/18 20:00 Pulse Rate 102 02/13/18 20:00 Respiratory Rate 18 02/13/18 20:00 Blood Pressure 158/111 02/13/18 20:00 O2 Sat by Pulse Oximetry 97 02/13/18 20:00 Temperature 99.7 F H 02/13/18 20:00 Pulse Rate 90 02/13/18 22:39 Respiratory Rate 18 02/13/18 22:39 Blood Pressure 131/89 02/13/18 22:39 O2 Sat by Pulse Oximetry 98 02/13/18 22:39 Oxygen Delivery Oxygen Delivery Room Air Abdominal Pain - Lab Data Result diagrams: 02/13/18 20:50 02/13/18 20:50 Lab Results 02/13/18 02/13/18 02/13/18 Range/Units 20:50 20:50 20:57 WBC 10.9 (4.3-11.1) K/mcL RBC 5.55 H (4.19-5.50) M/mcL Hgb 16.1 (12.9-16.9) g/dL Hct 47.0 (37.5-50.1) % MCV 84.7 (83.0-100.0) fL MCH 29.0 (28.0-33.3) pg MCHC 34.3 (31.6-35.5) g/dL RDW 12.6 (11.5-14.5) % Plt Count 242 (140-400) K/mcL MPV 10.2 (9.4-12.4) fL Immature Gran % 0.3 (0-4) % Seg Neutrophils % 48.7 % Lymphocytes % 29.9 % Monocytes % 10.1 % Eosinophils % 9.8 % Basophils % 1.2 % Neutrophils # 5.3 (1.6-8.9) K/mcL Lymphocytes # 3.3 (0.6-4.6) K/mcL Monocytes # 1.1 (0.0-1.3) K/mcL Eosinophils # 1.1 H (0.0-0.6) K/mcL Basophils # 0.1 (0.0-0.2) K/mcL Sodium 135 L (136-145) mEq/L Potassium 3.6 (3.5-5.1) mEq/L Chloride 100 (98-107) mEq/L Carbon Dioxide 25 (23-29) mEq/L BUN 10 (6-20) mg/dL Creatinine 0.67 L (0.70-1.30) mg/dL Est GFR ( Amer) > 60 (> 60) Est GFR (Non-Af Amer) > 60 (> 60) BUN/Creatinine Ratio 15 (6-26) Glucose 364 H (70-105) mg/dL Calculated Osmolality 294 (280-300) Lactic Acid (0.5-2.2) mmol/L Calcium 9.3 (8.6-10.3) mg/dL Total Bilirubin 0.4 (0.3-1.0) mg/dL Direct Bilirubin 0.1 (0.0-0.2) mg/dL Indirect Bilirubin 0.3 (0.0-1.2) mg/dL AST 22 (13-39) Units/L ALT 33 (7-52) Units/L Alkaline Phosphatase 73 (34-104) Units/L Serum Total Protein 7.6 (6.4-8.9) g/dL Albumin 4.3 (3.5-5.7) g/dL Globulin 3.3 (2.4-3.5) g/dL Albumin/Globulin Ratio 1.3 (1.1-2.2) Lipase 44 (11-82) Units/L Urine Color Yellow (Yellow) Urine Clarity Clear (Clear) Urine pH 5.5 (5.0-8.0) pH Units Ur Specific [place] > 1.030 H (1.010-1.025) Urine Protein Trace (Neg-Trace) mg/dL Urine Glucose (UA) >=1000 H (Normal) mg/dL Urine Ketones Negative (Negative) mg/dL Urine Blood Negative (Negative) Urine Nitrite Negative (Negative) Urine Bilirubin Negative (Negative) Urine Urobilinogen Normal (Normal) mg/dL Ur Leukocyte Esterase Negative (Negative) Urine Microscopic RBC 0-3 (0-3) per hpf Urine Microscopic WBC 0-3 (0-3) per hpf Ur Squamous Epith Cells Few (None-Few) per lpf Urine Bacteria None Seen (None-Few) per hpf Hyaline Casts None Seen (None-Few) per lpf Ur Culture Indicated? NO (NO) Stool Occult Bld Scrn (Negative) 02/13/18 02/13/18 Range/Units 20:57 21:20 WBC (4.3-11.1) K/mcL RBC (4.19-5.50) M/mcL Hgb (12.9-16.9) g/dL Hct (37.5-50.1) % MCV (83.0-100.0) fL MCH (28.0-33.3) pg MCHC (31.6-35.5) g/dL RDW (11.5-14.5) % Plt Count (140-400) K/mcL MPV (9.4-12.4) fL Immature Gran % (0-4) % Seg Neutrophils % % Lymphocytes % % Monocytes % % Eosinophils % % Basophils % % Neutrophils # (1.6-8.9) K/mcL Lymphocytes # (0.6-4.6) K/mcL Monocytes # (0.0-1.3) K/mcL Eosinophils # (0.0-0.6) K/mcL Basophils # (0.0-0.2) K/mcL Sodium (136-145) mEq/L Potassium (3.5-5.1) mEq/L Chloride (98-107) mEq/L Carbon Dioxide (23-29) mEq/L BUN (6-20) mg/dL Creatinine (0.70-1.30) mg/dL Est GFR ( Amer) (> 60) Est GFR (Non-Af Amer) (> 60) BUN/Creatinine Ratio (6-26) Glucose (70-105) mg/dL Calculated Osmolality (280-300) Lactic Acid 2.1 (0.5-2.2) mmol/L Calcium (8.6-10.3) mg/dL Total Bilirubin (0.3-1.0) mg/dL Direct Bilirubin (0.0-0.2) mg/dL Indirect Bilirubin (0.0-1.2) mg/dL AST (13-39) Units/L ALT (7-52) Units/L Alkaline Phosphatase (34-104) Units/L Serum Total Protein (6.4-8.9) g/dL Albumin (3.5-5.7) g/dL Globulin (2.4-3.5) g/dL Albumin/Globulin Ratio (1.1-2.2) Lipase (11-82) Units/L Urine Color (Yellow) Urine Clarity (Clear) Urine pH (5.0-8.0) pH Units Ur Specific [place] (1.010-1.025) Urine Protein (Neg-Trace) mg/dL Urine Glucose (UA) (Normal) mg/dL Urine Ketones (Negative) mg/dL Urine Blood (Negative) Urine Nitrite (Negative) Urine Bilirubin (Negative) Urine Urobilinogen (Normal) mg/dL Ur Leukocyte Esterase (Negative) Urine Microscopic RBC (0-3) per hpf Urine Microscopic WBC (0-3) per hpf Ur Squamous Epith Cells (None-Few) per lpf Urine Bacteria (None-Few) per hpf Hyaline Casts (None-Few) per lpf Ur Culture Indicated? (NO) Stool Occult Bld Scrn Negative (Negative) Attestation Statement - Attestation Attestation: Resident Attestation: I examined this patient and my medical decision making was reviewed with the Resident Physician. I agree with the documented findings, disposition and treatment plan as described except to the extent set forth below. We independently had [id number] contact with the patient. Patient presents today for right lower quadrant abdominal pain. Patient has been consistent for 2 weeks. Initial CAT scan negative. Patient has noticed some blood in his stool. Patient will undergo further evaluation with blood work and CT scan. Awake alert and oriented 3, no acute distress, abdomen is soft with tenderness to the right lower quadrant with mild guarding but no rebound. No CVA tenderness. CT scan shows concern for apical core lesion. Patient's dad was diagnosed with colon cancer at 38. Grandfather also had colon cancer. Patient will be admitted for further evaluation of lesion. Please see resident note for further details and disposition.
[2018-02-13 21:30] LABS: Alanine Aminotransferase 33 Units/L (7-52); Albumin 4.3 g/dL (3.5-5.7); Albumin/Globulin Ratio 1.3 (1.1-2.2); Alkaline Phosphatase 73 Units/L (34-104); Aspartate Amino Transferase 22 Units/L (13-39); BUN/Creatinine Ratio 15 (6-26); Bilirubin,Direct 0.1 mg/dL (0.0-0.2); Bilirubin,Indirect 0.3 mg/dL (0.0-1.2); Bilirubin,Total 0.4 mg/dL (0.3-1.0); Blood Urea Nitrogen 10 mg/dL (6-20); Calcium 9.3 mg/dL (8.6-10.3); Carbon Dioxide 25 mEq/L (23-29); Chloride 100 mEq/L (98-107); Globulin 3.3 g/dL (2.4-3.5); Glucose 364 mg/dL (70-105); Lipase 44 Units/L (11-82); Osmolality,Calculated 294 (280-300); Potassium 3.6 mEq/L (3.5-5.1); Sodium 135 mEq/L (136-145); Total Protein 7.6 g/dL (6.4-8.9); eGFR For Non-African Americans > 60 (> 60)
[2018-02-14] MEDS ORDERED: OXYCODONE Oral CONC 10 MG/0.5 ML ORAL.SYG SL ONE (02:21)
[2018-02-14] MEDS ORDERED: Ondansetron 4 MG/2 ML VIAL IVP PRN (03:09)
[2018-02-14] MEDS ORDERED: *HR* Dextrose 50 % in Water (Syg) 50 ML SYRINGE IVP PRN (03:09)
[2018-02-14] MEDS ORDERED: Naloxone 0.4 MG/ML INJ IVP PRN (03:09)
[2018-02-14] MEDS ORDERED: D5% in Water 1,000 ML IVC PRN (03:09)
[2018-02-14] MEDS ORDERED: Dextrose Gel 15 GM/37.5 ML TUBE PO PRN ×2 (03:09)
[2018-02-14] MEDS: 0.9 % Sodium Chloride 1,000 ML IVC SCH ×2 (03:40→17:18)
[2018-02-14 04:34] LABS: Basophils # 0.2 K/mcL (0.0-0.2); Basophils % 1.7 %; Eosinophils # 1.2 K/mcL (0.0-0.6); Hemoglobin 15.8 g/dL (12.9-16.9); Immature Granulocytes % 0.3 % (0-4); Lymphocytes # 3.3 K/mcL (0.6-4.6); Lymphocytes % 31.8 %; Mean Corpuscular HGB Conc 34.3 g/dL (31.6-35.5); Mean Corpuscular Hemoglobin 29.3 pg (28.0-33.3); Mean Corpuscular Volume 85.2 fL (83.0-100.0); Mean Platelet Volume 10.2 fL (9.4-12.4); Monocytes % 9.9 %; Neutrophils # 4.8 K/mcL (1.6-8.9); Platelet Count 234 K/mcL (140-400); Red Cell Distribution Width 12.6 % (11.5-14.5); Segmented Neutrophils % 45.3 %
[2018-02-14 04:39] LABS: INR 1.1; Prothrombin Time 12.4 Seconds (9.4-12.1)
[2018-02-14 04:42] LABS: Activated Partial Thrombo Time 31.7 Seconds (26.0-36.0)
--- NOTE | 2018-02-14 04:54 | Internal Med History&Physical ---
Date of Encounter: 02/14/18 Time of Encounter: 02:20 Internal Medicine - H&P: HPI Chief complaint: abdominal pain; protracted diarrhea Admitted From: Emergency Dept Plans for Post Hospital Care: Home History of present illness: Mr. Villeda is a 37 year old male who presents with complaints of protracted diarrhea for about 3 weeks. He has had associated abdominal pain and cramping, nausea, and rare vomiting. Stools have been thin liquid and watery and nonbloody. He has had persistent symptoms and abdominal pain, so he came to ER for evaluation. Workup in ER was negative on labs, but he had CT of abdomen which showed a possible apple core lesion in his colon. Patient was subsequently admitted to hospitalist service. Upon my assessment of the patient, he reiterates the above history. He denies any fevers, chills, or night sweats. He denies any history of stomach ulcers in the past. He denies any heavy NSAID use or abuse. He denies any melena, hematochezia, or hematemesis. He denies any raw or undercooked food ingestion, exotic foods, or any ill contacts. Of note, his father was diagnosed with colon cancer at the age of 38. His mother had UNEMPLOYMENT SPECIALIST cancer and grandparents had cancer as well. However, there are no other family members who have had colon cancer. Past Med Surg Social Fam HX - Past Medical History Attestation: Yes The following information was validated with the patient. Source: patient, old records reviewed Medical history: arthritis, asthma, COPD, diabetes, hyperlipidemia, hypertension Additional medical history: sleep apnea uses oxygen 2L at HS Psychiatric history: depression, prior suicide attempt, previous psychiatric hospitalization - Past Surgical History Surgical History: cholecystectomy Additional surgical history: rt eye surgery in 2004 - Social History Smoking Status: Former smoker Smokeless Tobacco Status: No Alcohol use: occasionally Drug use: none Current living situation: Home, With Family Activity Level: Independent ambulation Recent Out of Country Travel Within the Last 8 Weeks: No - Family History Father Family Member Ethnicity: Non- Living Status: Hx Family Cardiac Disorders: Yes (Stroke, CA, HLD, HTN) Mother Family Member Ethnicity: Non- Living Status: Still Living Hx Family Cardiac Disorders: Yes (TIA, HLD, HTN) Hx Family Endocrine Disorder: Yes (DM) Brother Family Member Ethnicity: Non- Living Status: Still Living Hx Family Cardiac Disorders: Yes (HLD, HTN) Sister Family Member Ethnicity: Non- Living Status: Still Living Hx Family Cardiac Disorders: Yes (HLD, HTN) Hx Family Endocrine Disorder: Yes (DM) Internal Medicine - H&P: Meds ARIPiprazole [Abilify] 2 mg PO HS #30 tablet 10/19/17 [Rx] Ziprasidone HCl [Geodon] 20 mg PO HS #6 capsule 12/14/17 [Rx] Divalproex (12 HR) [Depakote (12 HR)] 1,000 mg PO HS 12/16/17 [History] Metoprolol Succinate [Toprol Xl] 25 mg PO BID 12/23/17 [History] Cyprohepatdine [Periactin] 4 mg PO DAILY 02/01/18 [History] Insulin Glargine [Lantus] 15 unit SQ BID 02/01/18 [History] Simvastatin [Zocor] 10 mg PO HS 02/01/18 [History] 3 Allergy/AdvReac Type Severity Reaction Status Date / Time potassium Allergy Anaphylaxis Verified 12/16/17 20:32 Penicillins AdvReac Hives Verified 12/16/17 20:32 sodium bicarb Allergy Severe Anaphylaxis Uncoded 12/16/17 20:32 sodium chloride Allergy Severe Anaphylaxis Uncoded 12/16/17 20:32 sodium sulfide Allergy Severe Anaphylaxis Uncoded 12/16/17 20:32 peanuts Allergy Unknown Anaphylaxis Uncoded 12/16/17 20:32 Ipratropium [place] Allergy Anaphylaxis Uncoded 12/16/17 20:32 - Constitutional Constitutional: no chills, no fever(s), no night sweats - EENT Eyes: no blurry vision, no change in vision Ears: no ear pain, no tinnitus Nose, mouth and throat: no nasal congestion, no sinus pain, no sinus pressure - Cardiovascular Cardiovascular ROS IM: no chest pain, no dyspnea, no dyspnea on exertion, no palpitations - Respiratory Respiratory: no cough, no hemoptysis, no chest congestion, no excessive phlegm production, no change in phlegm color - Gastrointestinal Gastrointestinal: cramping, diarrhea, nausea, no abdominal pain, no coffee ground emesis, no hematemesis, no hematochezia, no melena, no vomiting - Genitourinary Genitourinary ROS male: no dysuria, no flank pain, no hematuria - Musculoskeletal Musculoskeletal ROS IM: no arthralgias, no back pain - Integumentary Integumentary IM: no rash, no jaundice - Neurological Neurological ROS: no dizziness, no focal weakness, no frequent falls, no headache(s) - Psychiatric Psychiatric: no anxiety, no depression - Endocrine Endocrine IM: no cold intolerance, no heat intolerance, no polydipsia, no polyphagia, no polyuria - Hematologic/Lymphatic Hematologic/Lymphatic: no easy bruising - Allergic/Immunologic Allergic/Immunologic: no GI upset with certain foods - Constitutional Vitals: Temp Pulse Resp BP Pulse Ox 98.2 F 78 16 121/80 96 02/14/18 03:46 02/14/18 03:46 02/14/18 03:46 02/14/18 03:46 02/14/18 03:46 General appearance: Present: cooperative, A&O X 3, pleasant, no acute distress, answers questions appropriately Exam: see below - Head Head exam: Present: atraumatic, normal inspection - Eye Eye exam: Present: EOMI, PERRL. Absent: scleral icterus Pupils: Present: normal accommodation - ENT ENT exam: Present: mucous membranes dry, normal exam, normal oropharynx - Neck Neck exam general surgery: Present: full ROM, supple. Absent: tenderness, nuchal rigidity, thyromegaly - Respiratory Respiratory exam: Present: CTAB. Absent: chest wall tenderness, rales, respiratory distress, rhonchi, wheezes - Cardiovascular Cardiovascular exam: Present: RRR, +S1, +S2. Absent: diastolic murmur, systolic murmur - GI/Abdominal GI/Abdominal exam: Present: normal bowel sounds, soft. Absent: hepatomegaly, mass, splenomegaly, tenderness - Extremities Exam Extremities exam: Present: full ROM, normal capillary refill, warm, radial pulses palpable and symmetrical. Absent: calf tenderness, joint swelling - Back Exam Back exam: Absent: CVA tenderness (L), CVA tenderness (R) - Neurological Exam Neurological exam: Present: alert, CN II-XII intact, oriented X3, no focal deficits, strengths equal and symetr throughout - Psychiatric Psychiatric exam: Present: normal affect, normal mood - Skin Skin exam: Present: dry, intact, warm Internal Med - H&P Results - Labs CBC & Chem 7: 02/14/18 04:08 02/13/18 20:50 Labs: Short CBC 02/14/18 Range/Units 04:08 WBC 10.5 (4.3-11.1) K/mcL Hgb 15.8 (12.9-16.9) g/dL Hct 46.0 (37.5-50.1) % Plt Count 234 (140-400) K/mcL Neutrophils # 4.8 (1.6-8.9) K/mcL - Diagnostic Studies CT scan - abdomen Status: image reviewed by me (Report reviewed as well -- concern for apple core lesion in transvere colon) - Assessment and plan (1) Abdominal pain Current Visit: Yes Status: Acute Assessment and plan: 1. Symptoms likely related to diarrhea. 2. Will order stool GI panel. 3. Will place on IV Flagyl and Cipro for possibility of GI source of infection. 4. Monitor clinically. On my exam, patient had no pain. Qualifiers: Abdominal location: generalized Qualified Code(s): R10.84 - Generalized abdominal pain (2) Colonic mass Current Visit: Yes Status: Acute Assessment and plan: 1. Will consult GI as he needs colonoscopy. 2. Discrepancy between today's CT and one in November (not present in November). 3. Endoscopy per GI -- possibly outpatient. (3) Type 2 diabetes mellitus Current Visit: Yes Status: Chronic Assessment and plan: 1. Hold oral meds. 2. Will place on SSI and monitor glucose. Qualifiers: Diabetes mellitus residential insulin use: with residential use Diabetes mellitus complication status: without complication Qualified Code(s): E11.9 - Type 2 diabetes mellitus without complications; Z79.4 - superintendent terminal (current) use of insulin (4) DVT prophylaxis Current Visit: Yes Status: Acute Assessment and plan: 1. Heparin SQ.
[2018-02-14 04:56] LABS: Alanine Aminotransferase 31 Units/L (7-52); Albumin 4.1 g/dL (3.5-5.7); Albumin/Globulin Ratio 1.2 (1.1-2.2); Alkaline Phosphatase 70 Units/L (34-104); Aspartate Amino Transferase 21 Units/L (13-39); BUN/Creatinine Ratio 18 (6-26); Bilirubin,Total 0.6 mg/dL (0.3-1.0); Blood Urea Nitrogen 11 mg/dL (6-20); Calcium 9.1 mg/dL (8.6-10.3); Carbon Dioxide 27 mEq/L (23-29); Chloride 102 mEq/L (98-107); Globulin 3.3 g/dL (2.4-3.5); Glucose 234 mg/dL (70-105); Osmolality,Calculated 291 (280-300); Potassium 3.4 mEq/L (3.5-5.1); Sodium 137 mEq/L (136-145); Total Protein 7.4 g/dL (6.4-8.9); eGFR For Non-African Americans > 60 (> 60)
[2018-02-14] MEDS ORDERED: Pantoprazole 40 MG VIAL IVP SCH (06:00)
[2018-02-14] MEDS: *HR* Heparin 5,000 UNIT/ML VIAL SQ SCH ×2 (06:18→17:23)
[2018-02-14] MEDS: Insulin LISPRO 300 UNITS/3 ML VIAL SQ SCH ×3 (09:05→17:30)
[2018-02-14] MEDS: MetroNIDAZOLE 500 MG/100 ML 500 MG/100 ML BAG IVPB SCH ×2 (09:07→17:25)
[2018-02-14] MEDS ORDERED: Acetaminophen 325 MG TABLET PO PRN (10:05)
[2018-02-14] MEDS ORDERED: Ketorolac 15 MG/ML VIAL IVP ONE (10:06)
--- NOTE | 2018-02-14 11:15 | Gastroenterology Consult Note ---
<Garret Carvalho - Last Filed: 02/14/18 11:13> Date of Encounter: 02/14/18 Time of Encounter: 10:05 - Assessment and plan (1) Colonic mass Status: Acute Assessment and plan: Family history of colon cancer, father diagnosed around age 37. CT A/P shows possible 2 x 2.5 cm apple-core lesion at the proximal transverse colon; more likely that this reflects an area of unusually thickened haustration , as this portion of the colon looks normal on the CT in November. Plan for colonoscopy tomorrow. Clear liquid diet today, no red or purple. NPO at midnight. If not clear by 6 AM, give 2 tap water enemas. - Time Spent With Patient Total time spent is greater than 50% in coordination of care (as documented) at patient's floor/unit and/or counseling patient: GI History of Present Illness - Data of Consult Patient: new to practice Consult date: 02/14/18 Requesting Physician: Savana Patel MD - Consult Narrative Reason for consult: Colon lesion, diarrhea History of present illness: Mr. Villeda is a 37 year old male with PMHx of arthritis, asthma, COPD, DM, HLD , HTN who presents with complaints of protracted diarrhea for about 3 weeks. He has had associated abdominal pain and cramping, nausea, and rare vomiting. He denies melena or hematochezia. Workup in ER was negative on labs, but he had CT of abdomen which showed a possible apple core lesion in his colon. He denies any abdominal pain at this time. He states his father was diagnosed with colon cancer around the age 37. Procedures: EGD 01/17/2014 Dr. Liriano: Gastritis with hemorrhage. EGD 11/04/2011 Dr. Liriano: Mild Schatzki ring, gastric ulcers oozing blood. EGD 06/03/2011 Dr. Liriano: Mild stenosis (dilated). EGD 03/20/2011 Dr. Liriano: Esophageal stricture (Dilated), esophageal foreign body. EGD 02/25/2011 Dr. Morales: Normal Colonoscopy 11/07/2010 Dr. Alcantar: Internal hemorrhoids. EGD 11/07/2010 Dr. Alcantar: EOE,ulcerative esophagitis, LA Grade B esophagitis, gastritis EGD 08/26/2010 Dr. Alcantar: Foreign body in esophagus-removed, LA grade D reflux esophagitis, EGD 03/08/2010 Dr. Alcantar: Food in lower esophagus, hiatus hernia, LA grade D esophagitis, gastritis. NSAIDs: None Anticoagulation: None Past Med Surg Social Fam HX - Past Medical History Medical history: arthritis, asthma, COPD, diabetes, hyperlipidemia, hypertension Additional medical history: sleep apnea uses oxygen 2L at HS Psychiatric history: depression, prior suicide attempt, previous psychiatric hospitalization - Past Surgical History Surgical History: cholecystectomy Additional surgical history: rt eye surgery in 2004 - Social History Smoking Status: Former smoker Smokeless Tobacco Status: No Alcohol use: occasionally Drug use: none - Family History Father Family Member Ethnicity: Non- Living Status: Hx Family Cardiac Disorders: Yes (Stroke, ID, HLD, HTN) Mother Family Member Ethnicity: Non- Living Status: Still Living Hx Family Cardiac Disorders: Yes (TIA, HLD, HTN) Hx Family Endocrine Disorder: Yes (DM) Brother Family Member Ethnicity: Non- Living Status: Still Living Hx Family Cardiac Disorders: Yes (HLD, HTN) Sister Family Member Ethnicity: Non- Living Status: Still Living Hx Family Cardiac Disorders: Yes (HLD, HTN) Hx Family Endocrine Disorder: Yes (DM) - Gastrointestinal Gastrointestinal: Present: as per HPI - Constitutional Constitutional: as per HPI - EENT Eyes: as per HPI Ears: Present: as per HPI Nose, mouth and throat: Present: as per HPI - Cardiovascular Cardiovascular ROS: Present: as per HPI - Respiratory Respiratory IM: Present: as per HPI - Genitourinary Genitourinary: Absent: change in color, Urinary frequency - Neurological ROS Neurological GI: Present: as per HPI - Hematologic/Lymphatic Hematologic/Lymphatic pediatric: Present: as per HPI - Musculoskeletal Musculoskeletal ROS GI: Present: as per HPI - Integumentary Integumentary GI: Present: as per HPI - Psychiatric ROS Psychiatric GI: Present: as per HPI - Endocrine Endocrine IM: Present: as per HPI - Constitutional Vitals: Temp Pulse Resp BP Pulse Ox 97.7 F 87 18 120/83 97 02/14/18 07:14 02/14/18 07:14 02/14/18 07:14 02/14/18 07:14 02/14/18 07:14 General appearance: Present: cooperative, A&O X 3, no acute distress, answers questions appropriately - Head Head exam: Present: atraumatic, normocephalic - Eye Eye exam: Present: normal appearance, sclera anicteric - ENT ENT exam: Present: mucous membranes moist - Neck Neck exam general surgery: Present: normal inspection, trachea midline - Respiratory Respiratory exam: Present: CTAB. Absent: rales, rhonchi - Cardiovascular Cardiovascular exam: Present: RRR, +S1, +S2 - GI/Abdominal GI/Abdominal exam: Present: soft, no peritoneal signs. Absent: distended, firm , guarding, tenderness - Rectal Rectal exam: Present: deferred - Extremities Exam Extremities exam: Present: warm - Neurological Exam Neurological exam: Present: no focal deficits - Psychiatric Psychiatric exam: Present: normal affect, normal mood - Skin Skin exam: Present: dry, intact, normal color, warm Results - Labs CBC & Chem 7: 02/14/18 04:08 02/14/18 04:08 Labs: Last Result Calcium 9.1 mg/dL (8.6-10.3) 02/14/18 04:08 Entire Visit Hgb 15.8 g/dL (12.9-16.9) 02/14/18 04:08 Hct 46.0 % (37.5-50.1) 02/14/18 04:08 PT 12.4 Seconds (9.4-12.1) H 02/14/18 04:08 Total Bilirubin 0.6 mg/dL (0.3-1.0) 02/14/18 04:08 AST 21 Units/L (13-39) 02/14/18 04:08 ALT 31 Units/L (7-52) 02/14/18 04:08 Lipase 44 Units/L (11-82) 02/13/18 20:50 - ABG ABG results: PT/INR, D-dimer PT 12.4 Seconds (9.4-12.1) H 02/14/18 04:08 Consult Discharge Plan - Plan Referrals: NONE,PCP [Primary Care Provider] - (pt to make f/u appt) <Leodan Calhoun - Last Filed: 02/16/18 12:16> Date of Encounter: 02/14/18 - Time Spent With Patient Total time spent is greater than 50% in coordination of care (as documented) at patient's floor/unit and/or counseling patient: GI History of Present Illness - Data of Consult Requesting Physician: Luan Knapp - Consult Narrative History of present illness: Mr. Villeda is a 37 year old male - Constitutional Vitals: Temp Pulse Resp BP Pulse Ox 98.7 F 84 18 127/88 96 02/15/18 12:26 02/15/18 12:26 02/15/18 12:26 02/15/18 12:26 02/15/18 12:26 Results - Labs CBC & Chem 7: 02/15/18 09:48 02/15/18 09:48 Labs: Last Result Calcium 8.9 mg/dL (8.6-10.3) 02/15/18 09:48 Entire Visit Hgb 15.9 g/dL (12.9-16.9) 02/15/18 09:48 Hct 45.9 % (37.5-50.1) 02/15/18 09:48 PT 12.4 Seconds (9.4-12.1) H 02/14/18 04:08 Total Bilirubin 0.6 mg/dL (0.3-1.0) 02/14/18 04:08 AST 21 Units/L (13-39) 02/14/18 04:08 ALT 31 Units/L (7-52) 02/14/18 04:08 Lipase 44 Units/L (11-82) 02/13/18 20:50 - ABG ABG results: PT/INR, D-dimer PT 12.4 Seconds (9.4-12.1) H 02/14/18 04:08 - Attending Attestation Patient's father had colon cancer diagnosed at age 38. Patient had his last colonoscopy 5 years ago. Reviewed the CT and the CT in November. Not convinced there is a mass in the proximal transverse colon based on the CT in 11/2017 but, will go ahead and do a colonoscopy given the situation. I have personally performed a face to face evaluation on this patient. I have reviewed and agree with the care plan. History and Exam by me shows:
--- NOTE | 2018-02-14 13:13 | Event Note ---
Date of Encounter: 02/14/18 Time of Encounter: 13:12 Patient complains of some abdominal discomfort and headache. We will treat symptomatically. Awaiting GI evaluation. Most likely patient will need colonoscopy tomorrow. We will prep him from this evening. Send stool for GI panel if patient has diarrhea again. So far this morning he has not had any episodes of diarrhea.
[2018-02-14] MEDS ORDERED: Polyethylene Glycol 3350 255 GM POWDER PO ONE (17:00)
[2018-02-14] MEDS ORDERED: Insulin LISPRO 300 UNITS/3 ML VIAL SQ SCH ×2 (21:00)
[2018-02-15] MEDS: MetroNIDAZOLE 500 MG/100 ML 500 MG/100 ML BAG IVPB SCH ×2 (02:46→09:28)
[2018-02-15] MEDS: *HR* Heparin 5,000 UNIT/ML VIAL SQ SCH (05:52)
[2018-02-15 10:20] LABS: Basophils # 0.1 K/mcL (0.0-0.2); Basophils % 1.4 %; Eosinophils # 0.7 K/mcL (0.0-0.6); Eosinophils % 8.3 %; Hematocrit 45.9 % (37.5-50.1); Hemoglobin 15.9 g/dL (12.9-16.9); Immature Granulocytes % 0.2 % (0-4); Lymphocytes # 2.4 K/mcL (0.6-4.6); Lymphocytes % 27.9 %; Mean Corpuscular HGB Conc 34.6 g/dL (31.6-35.5); Mean Corpuscular Hemoglobin 29.6 pg (28.0-33.3); Mean Corpuscular Volume 85.3 fL (83.0-100.0); Mean Platelet Volume 10.3 fL (9.4-12.4); Monocytes # 0.8 K/mcL (0.0-1.3); Monocytes % 8.9 %; Neutrophils # 4.6 K/mcL (1.6-8.9); Platelet Count 222 K/mcL (140-400); Red Blood Count 5.38 M/mcL (4.19-5.50); Red Cell Distribution Width 12.8 % (11.5-14.5); Segmented Neutrophils % 53.3 %
[2018-02-15 10:45] LABS: BUN/Creatinine Ratio 10 (6-26); Blood Urea Nitrogen 6 mg/dL (6-20); Calcium 8.9 mg/dL (8.6-10.3); Carbon Dioxide 26 mEq/L (23-29); Chloride 104 mEq/L (98-107); Glucose 230 mg/dL (70-105); Osmolality,Calculated 289 (280-300); Potassium 3.6 mEq/L (3.5-5.1); Sodium 137 mEq/L (136-145); eGFR For Non-African Americans > 60 (> 60)
[2018-02-15] MEDS ORDERED: Propofol 500 MG/50 ML INFUS..BTL ONE (11:56)
[2018-02-15 12:11] LABS: Chlamydia Trachomatis DNA Ur NOT DETECTED (Not Detect)
[2018-02-15 12:28] VITALS: BP 127/88
[2018-02-15] MEDS ORDERED: 0.9 % Sodium Chloride 500 ML IVC SCH (12:30)
--- NOTE | 2018-02-15 12:41 | Anesthesia Evaluation PreOp ---
Date of Encounter: 02/15/18 Time of Encounter: 12:39 - Past History Planned Operation: colonoscopy Cardiac History: HTN, Hyperlipidemia Pulmonary History: Asthma, COPD, MIKE Dx (not CPAP compliant), Other (2 L oxygen qhs) [facility] History: Denies Any Significant HX Other Medical History: Diabetes Type II, Other (diarrhea) Anesthesia History: No Prior Anesthetic Complications, Past Anesthesia Alcohol Use: occasionally Drug use: none Medications and Allergies Metoprolol Succinate [Toprol Xl] 25 mg PO BID 12/23/17 [History] Cyprohepatdine [Periactin] 4 mg PO DAILY 02/01/18 [History] Simvastatin [Zocor] 10 mg PO HS 02/01/18 [History] ARIPiprazole [Abilify] 10 mg PO DAILY 02/14/18 [History] BuPROPion XL (24 HR) [Wellbutrin XL] 300 mg PO DAILY 02/14/18 [History] Insulin DETEMIR [Levemir Flextouch] 18 unit SQ BID 02/14/18 [History] Mirtazapine 7.5 mg PO HS 02/14/18 [History] Pantoprazole Sodium 40 mg PO DAILY 02/14/18 [History] Prazosin [Minipress] 1 mg PO DAILY 02/14/18 [History] lamoTRIgine [Lamictal] 100 mg PO DAILY 02/14/18 [History] 3 Allergy/AdvReac Type Severity Reaction Status Date / Time potassium Allergy Anaphylaxis Verified 12/16/17 20:32 Penicillins AdvReac Hives Verified 12/16/17 20:32 sodium bicarb Allergy Severe Anaphylaxis Uncoded 12/16/17 20:32 sodium chloride Allergy Severe Anaphylaxis Uncoded 12/16/17 20:32 sodium sulfide Allergy Severe Anaphylaxis Uncoded 12/16/17 20:32 peanuts Allergy Unknown Anaphylaxis Uncoded 12/16/17 20:32 Ipratropium [place] Allergy Anaphylaxis Uncoded 12/16/17 20:32 - Meds/Allergy Pre-op Review Medications Reviewed: Yes Allergies Reviewed: Yes Beta Blockers on Current Med List: Yes (metoprolol held ) Anesthesia Results - Labs 02/15/18 09:48 02/15/18 09:48 - Imaging EKG: report reviewed, image reviewed Additional studies: 2018 Impressions: LVEF 60-65%. Normal LV chamber size, wall thickness and function. Indeterminate diastolic function. Normal right ventricular structure and function. Unable to estimate RVSP due to lack of TR jet. No significant valvular dysfunction. Anesthesia Exam Vital Signs/O2 Sat/Glucose, Most Recent Temp Pulse Resp BP Pulse Ox 98.7 F 84 18 127/88 96 02/15/18 12:26 02/15/18 12:26 02/15/18 12:26 02/15/18 12:02/15/18 12:26 Blood Glucose* 196 Height: 1.75 Weight: 93 KG NPO (# of Hours): > 8 hr - HEENT Pupil (Motor): Pupils equal Mallampati: II Teeth: Poor dentition Oral Opening: Greater than 3 - [facility] LOC: Oriented [facility] Motor: Normal RUE, Normal LUE, Normal RLE, Normal LLE, Normal Face [facility] Sensory: Normal: RUE, LUE, RLE, LLE, Face - Cardiac Rhythm: Regular Murmur: None - Pulmonary Breath Sounds: bilateral Clear Respiratory Effort: Symmetrical Anesthesia Assess/Plan ASA Score: 3 Modified Jose Manuel Scale for Level of Consciousness: Cooperative, oriented, and tranquil Anesthetic Plan: MAC Monitoring Plan: Standard Monitors Recovery Plan: PACU
--- NOTE | 2018-02-15 13:26 | Anesthesia Evaluation Post Op ---
Date of Encounter: 02/15/18 Time of Encounter: 13:25 - Vital Signs Vital Signs: Vital Signs/O2 Sat/Glucose, Most Recent Temp Pulse Resp BP Pulse Ox 98.7 F 84 18 127/88 96 02/15/18 12:26 02/15/18 12:26 02/15/18 12:26 02/15/18 12:02/15/18 12:26 Blood Glucose* 196 - Lungs Lungs: Clear Ascult./Percussion - Airway Airway: Non-obstructed - Cardiovascular Regular Rate - Mental Status Mental Status: Alert & Oriented, Answers Appropriately - Pain Pain Scale: 0 - Nausea Vomiting Nausea Vomiting: Not Present - Hydration Hydration: NPO - Discharge PostOp Status: Transfer Patient to floor
--- NOTE | 2018-02-15 15:46 | Discharge Summary ---
- NOTES TO OUTPATIENT PROVIDER Notes to Outpatient Provider: NONE Date of Encounter: 02/15/18 Time of Encounter: 14:00 - Discharge Diagnosis (1) Abdominal pain Priority: Primary Status: Acute Qualifiers: Abdominal location: generalized Qualified Code(s): R10.84 - Generalized abdominal pain (2) Type 2 diabetes mellitus Priority: Secondary Status: Chronic Qualifiers: Diabetes mellitus granulator tender insulin use: with granulator tender use Diabetes mellitus complication status: without complication Qualified Code(s): E11.9 - Type 2 diabetes mellitus without complications; Z79.4 - jail (current) use of insulin (3) Colonic mass Priority: Secondary Status: Ruled-out Hospital course: Patient is a 37-year-old male with past medical history significant for COPD, hyperlipidemia and hypertension who presents to the ER on 02/14/18 due to abdominal pain and diarrhea. Workup in ER was negative on labs, but he had CT of abdomen which showed a possible apple core lesion in his colon. Patient was admitted to medical surgical floor to evaluate colonic mass. During patients hospital stay, GI was consulted with recommendation for colonoscopy which showed normal colon with nonbleeding internal hemorrhoids. Patients symptoms of diarrhea also resolved and patient was able to tolerate by mouth without abdominal pain. Patient will be discharged to follow up with primary care provider. - Time Spent with Patient Total time spent providing and/or coordinating discharge services: Less than 30 minutes - Discharge Medications Home Medications: Metoprolol Succinate [Toprol Xl] 25 mg PO BID 12/23/17 [History] Cyprohepatdine [Periactin] 4 mg PO DAILY 02/01/18 [History] Simvastatin [Zocor] 10 mg PO HS 02/01/18 [History] ARIPiprazole [Abilify] 10 mg PO DAILY 02/14/18 [History] BuPROPion XL (24 HR) [Wellbutrin XL] 300 mg PO DAILY 02/14/18 [History] Insulin DETEMIR [Levemir Flextouch] 18 unit SQ BID 02/14/18 [History] Mirtazapine 7.5 mg PO HS 02/14/18 [History] Pantoprazole Sodium 40 mg PO DAILY 02/14/18 [History] Prazosin [Minipress] 1 mg PO DAILY 02/14/18 [History] lamoTRIgine [Lamictal] 100 mg PO DAILY 02/14/18 [History] Allergies/Adverse Reactions: 3 Allergy/AdvReac Type Severity Reaction Status Date / Time potassium Allergy Anaphylaxis Verified 12/16/17 20:32 Penicillins AdvReac Hives Verified 12/16/17 20:32 sodium bicarb Allergy Severe Anaphylaxis Uncoded 12/16/17 20:32 sodium chloride Allergy Severe Anaphylaxis Uncoded 12/16/17 20:32 sodium sulfide Allergy Severe Anaphylaxis Uncoded 12/16/17 20:32 peanuts Allergy Unknown Anaphylaxis Uncoded 12/16/17 20:32 Ipratropium [place] Allergy Anaphylaxis Uncoded 12/16/17 20:32 Date of admission: 02/14/18 00:41 Primary care physician: PCP NONE Consults: 02/14/18 03:09 Consult to Gastroenterology [CONS] Routine Consulting Provider: Gastroenterology Karen Reason for Consult: diarrhea x 2 weeks; colon lesion on CT Call Completed: No - Constitutional Vitals: Temp Pulse Resp BP Pulse Ox 98.7 F 84 18 127/88 96 02/15/18 12:26 02/15/18 12:26 02/15/18 12:26 02/15/18 12:26 02/15/18 12:26 General appearance: Present: cooperative, A&O X 3, pleasant, no acute distress, answers questions appropriately Exam: Gen.: Nonacute distress, alert and oriented 3 ENT: Mucosal membranes moist Respiratory: Lungs are clear to auscultation bilaterally without any wheezing rhonchi or rales Cardiovascular: Normal S1 and S2 regular rate rhythm no murmurs rubs or gallops Abdomen: Soft, nontender and nondistended with positive bowel sounds Extremities: No lower extremity edema Skin: Normal color - Patient Status Disposition: Home, Self-Care Condition: Fair - Discharge Instructions Follow Up With: NONE,PCP [Primary Care Provider] -
[2018-02-15] MEDS: Insulin LISPRO 300 UNITS/3 ML VIAL SQ SCH ×2 (16:26→16:27)
== END 2018-02-15 17:08 | disposition home or self-care (01) ==
LOC: 2ANU 19:54 → EMEROOARM 19:54 → SUATTDRO 02-14 00:41 → 2ANU 02-14 01:15
PROVIDERS: ADMIT Family Medicine; ATTEND Hospitalist